=== PATIENT | male | born 1940 | race Caucasian/White ===

== ENCOUNTER 2017-03-10 07:34 | Emergency (ER) | payer MEDICARE ==
--- NOTE | 2017-03-10 08:04 | ED ---
Extremity Problem HPI - General Chief complaint: Extremity Problem,Nontraumatic Stated complaint: left shoulder numbness, lower back pain, heart Hx Time Seen by Provider: 03/10/17 07:43 Source: patient, RN notes reviewed Mode of arrival: wheelchair Limitations: no limitations - History of Present Illness Initial comments: This is a 76-year-old male with a history of heart disease who is on blood thinners who states she's had chronic left shoulder pain for last several months which wax and wane sometimes gets worse he points to the deltoid proximal aspect who states she last 2 days however he has had some back spasms in the left lower back. He denies any abdominal pain any fevers chills sweats nausea vomiting states the pain is severe at night and does keep him awake. He states right now the pain is very minimal he did take Tylenol and didn't seem to help. He has no history kidney stones no dysuria hematuria.Trouble bowel movements. He does have a history of low back problems also a history of arthritis and that he states. He states at this time he feels pretty good but because of severity of the pain he had he is seeking medical attention evaluation. He states he did have calf pain several days ago and was seen by Dr. romo a blood test was done and it was within normal limits. I did look up the blood test with a d-dimer that was within normal limits. MD Complaint: extremity pain, other - Related Data Home Medications Medication Instructions Recorded Confirmed B Complex-Vit C-Vit E-Zinc [Z-Bec] 1 tab PO DAILY 10/14/14 01/18/16 Nitroglycerin Sl Tabs [Nitrostat] 0.4 mg SL Q5M PRN 10/14/14 01/18/16 Quinapril HCl [Accupril] 20 mg PO BID 10/14/14 01/18/16 Ubidecarenone [Co Q-10] 100 mg PO DAILY 10/14/14 01/18/16 Aspirin 81 mg PO HS 02/04/15 01/18/16 Clopidogrel [Plavix] 75 mg PO DAILY 02/04/15 01/18/16 sulfaSALAzine [Azulfidine] 1,000 mg PO QID 02/04/15 01/18/16 Cholecalciferol [Vitamin D3] 1,000 unit PO DAILY 09/27/15 01/18/16 Multivit-Mins/Iron/Folic/Lycop 1 tab PO DAILY 01/18/16 01/18/16 [Centrum Men's Tablet] Rosuvastatin [Crestor] 20 mg PO HS 01/18/16 01/18/16 Previous Rx's Medication Instructions Recorded Metoprolol Tartrate [Lopressor] 50 mg PO BID #60 tab 10/15/14 Hydrocodone/Acetaminophen [Fisher 1 each PO Q6HR PRN #12 tab 03/10/17 5-325] predniSONE 20 mg PO BID #10 tab 03/10/17 Allergies Allergy/AdvReac Type Severity Reaction Status Date / Time influenza virus vaccine, Allergy Unknown Verified 03/10/17 07:39 specific [influenza virus vacc,specific] Penicillins AdvReac Unknown Verified 03/10/17 07:39 Childhood Review of Systems ROS Statement: Those systems with pertinent positive or pertinent negative responses have been documented in the HPI. ROS Other: All systems not noted in ROS Statement are negative. 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 Last Myocardial Infarction Date:: 2005 History of Any Multi-Drug Resistant Organisms: None Reported Past Surgical History: Adenoidectomy, Heart Catheterization With Stent, Tonsillectomy Additional Past Surgical History / Comment(s): 2005 Cardiac cath with stenting of LAD, anal fistula surgery, cardiac stents Past Anesthesia/Blood Transfusion Reactions: No Reported Reaction Additional Past Anesthesia/Blood Transfusion Reaction / Comment(s): Pt has never recieved blood. Date of Last Stent Placement:: 2005 Past Psychological History: Anxiety Smoking Status: Former smoker Past Alcohol Use History: Occasional Past Drug Use History: None Reported - Past Family History Father Family Medical History: Coronary Artery Disease (CAD) (Father at age of 77 from the myocardial infarction when he acquired at the age of 60 and he also developed prostate cancer), Myocardial Infarction ([place]) Additional Family Medical History / Comment(s): Father of [place] Mother Family Medical History: Dementia (Mother at age of 89 from Alzheimer dementia.) Additional Family Medical History / Comment(s): Mother of alzhiemer's Brother(s) Family Medical History: Cancer (Patient had 4 brothers one of his brother from lung cancer the other one from lead poisoning and the third one is alive.), Myocardial Infarction ([place]) Additional Family Medical History / Comment(s): Brother of [place] at age 55yrs but had used cocaine and other drugs. Sister(s) Family Medical History: Cancer (Patient has 3 sisters to alive and one from lung cancer) Son(s) Family Medical History: No Reported History (Patient has 5 sons no major medical problems as well as 5 stepsons.) General Exam - General Exam Comments Initial Comments: This is a well-developed well-nourished awake alert oriented times 3 male Limitations: no limitations General appearance: alert, in no apparent distress Head exam: Present: atraumatic, normocephalic, normal inspection Eye exam: Present: normal appearance, PERRL, EOMI. Absent: scleral icterus, conjunctival injection, periorbital swelling ENT exam: Present: normal exam, mucous membranes moist Neck exam: Present: normal inspection, tenderness (Mild left lateral neck tenderness palpation no spinous process tenderness). Absent: meningismus, lymphadenopathy Respiratory exam: Present: normal lung sounds bilaterally. Absent: respiratory distress, wheezes, rales, rhonchi, stridor Cardiovascular Exam: Present: regular rate, normal rhythm, normal heart sounds. Absent: systolic murmur, diastolic murmur, rubs, gallop, clicks GI/Abdominal exam: Present: soft, normal bowel sounds. Absent: distended, tenderness, guarding, rebound, rigid, bruit, pulsatile mass, hernia Rectal exam: Present: deferred Extremities exam: Present: normal inspection, full ROM, tenderness (Mild times palpation of the proximal deltoid and the left. No step-off or crepitation.), normal capillary refill. Absent: pedal edema, joint swelling, calf tenderness Back exam: Present: normal inspection, full ROM, tenderness. Absent: CVA tenderness (R) (Tenderness palpation of the left SI joint and left paraspinous muscle. No spinous process tenderness no step-off or crepitation. No gluteal tenderness at this time.), CVA tenderness (L) Neurological exam: Present: alert, oriented X3, CN II-XII intact Psychiatric exam: Present: normal affect, normal mood Skin exam: Present: warm, dry, intact, normal color. Absent: rash Course Vital Signs 03/10/17 03/10/17 03/10/17 07:36 08:31 08:51 Temperature 97.5 F L Pulse Rate 66 64 Respiratory 18 16 Rate Blood Pressure 222/102 187/69 O2 Sat by Pulse 97 98 Oximetry Medical Decision Making - Medical Decision Making I did discuss findings with the patient he will be discharged with appropriate medications the presentation is consistent with musculoskeletal pain. - Lab Data Result diagrams: 03/10/17 08:28 03/10/17 08:28 Lab Results 03/10/17 03/10/17 03/10/17 Range/Units 08:28 08:28 08:28 WBC 6.8 (3.8-10.6) k/uL RBC 4.59 (4.30-5.90) m/uL Hgb 14.1 (13.0-17.5) gm/dL Hct 42.1 (39.0-53.0) % MCV 91.7 (80.0-100.0) fL MCH 30.8 (25.0-35.0) pg MCHC 33.6 (31.0-37.0) g/dL RDW 13.3 (11.5-15.5) % Plt Count 253 (150-450) k/uL Neutrophils % 61 % Lymphocytes % 27 % Monocytes % 7 % Eosinophils % 3 % Basophils % 1 % Neutrophils # 4.1 (1.3-7.7) k/uL Lymphocytes # 1.8 (1.0-4.8) k/uL Monocytes # 0.5 (0-1.0) k/uL Eosinophils # 0.2 (0-0.7) k/uL Basophils # 0.1 (0-0.2) k/uL PT (9.0-12.0) sec INR (<1.2) Sodium 139 (137-145) mmol/L Potassium 4.6 (3.5-5.1) mmol/L Chloride 101 (98-107) mmol/L Carbon Dioxide 28 (22-30) mmol/L Anion Gap 10 mmol/L BUN 10 (9-20) mg/dL Creatinine 0.73 (0.66-1.25) mg/dL Est GFR (MDRD) Af Amer >60 (>60 ml/min/1.73 sqM) Est GFR (MDRD) Non-Af >60 (>60 ml/min/1.73 sqM) Glucose 151 H (74-99) mg/dL Calcium 9.4 (8.4-10.2) mg/dL Magnesium 2.1 (1.6-2.3) mg/dL Total Bilirubin 0.6 (0.2-1.3) mg/dL AST 25 (17-59) U/L ALT 32 (21-72) U/L Alkaline Phosphatase 82 (38-126) U/L Total Creatine Kinase 118 (55-170) U/L CK-MB (CK-2) 1.8 (0.0-2.4) ng/mL CK-MB (CK-2) Rel Index 1.5 Total Protein 7.6 (6.3-8.2) g/dL Albumin 4.7 (3.5-5.0) g/dL Amylase 47 (30-110) U/L Lipase 75 (23-300) U/L Urine Color Urine Appearance (Clear) Urine pH (5.0-8.0) Ur Specific [place] (1.001-1.035) Urine Protein (Negative) Urine Glucose (UA) (Negative) Urine Ketones (Negative) Urine Blood (Negative) Urine Nitrite (Negative) Urine Bilirubin (Negative) Urine Urobilinogen (<2.0) mg/dL Ur Leukocyte Esterase (Negative) 03/10/17 03/10/17 Range/Units 08:28 08:28 WBC (3.8-10.6) k/uL RBC (4.30-5.90) m/uL Hgb (13.0-17.5) gm/dL Hct (39.0-53.0) % MCV (80.0-100.0) fL MCH (25.0-35.0) pg MCHC (31.0-37.0) g/dL RDW (11.5-15.5) % Plt Count (150-450) k/uL Neutrophils % % Lymphocytes % % Monocytes % % Eosinophils % % Basophils % % Neutrophils # (1.3-7.7) k/uL Lymphocytes # (1.0-4.8) k/uL Monocytes # (0-1.0) k/uL Eosinophils # (0-0.7) k/uL Basophils # (0-0.2) k/uL PT 10.9 (9.0-12.0) sec INR 1.1 (<1.2) Sodium (137-145) mmol/L Potassium (3.5-5.1) mmol/L Chloride (98-107) mmol/L Carbon Dioxide (22-30) mmol/L Anion Gap mmol/L BUN (9-20) mg/dL Creatinine (0.66-1.25) mg/dL Est GFR (MDRD) Af Amer (>60 ml/min/1.73 sqM) Est GFR (MDRD) Non-Af (>60 ml/min/1.73 sqM) Glucose (74-99) mg/dL Calcium (8.4-10.2) mg/dL Magnesium (1.6-2.3) mg/dL Total Bilirubin (0.2-1.3) mg/dL AST (17-59) U/L ALT (21-72) U/L Alkaline Phosphatase (38-126) U/L Total Creatine Kinase (55-170) U/L CK-MB (CK-2) (0.0-2.4) ng/mL CK-MB (CK-2) Rel Index Total Protein (6.3-8.2) g/dL Albumin (3.5-5.0) g/dL Amylase (30-110) U/L Lipase (23-300) U/L Urine Color Light Yellow Urine Appearance Clear (Clear) Urine pH 7.0 (5.0-8.0) Ur Specific [place] 1.003 (1.001-1.035) Urine Protein Negative (Negative) Urine Glucose (UA) Negative (Negative) Urine Ketones Negative (Negative) Urine Blood Negative (Negative) Urine Nitrite Negative (Negative) Urine Bilirubin Negative (Negative) Urine Urobilinogen <2.0 (<2.0) mg/dL Ur Leukocyte Esterase Negative (Negative) - EKG Data -: EKG Interpreted by Me EKG shows normal: sinus rhythm (Sinus rhythm rate is 61. We'll 196 QRS 148 QT since QTC of 432/434 left exodeviation right bundle-branch block minimal voltage criteria for LVH.) - Radiology Data Radiology results: report reviewed (I did review the imaging and reports are is evidence of degenerative changes in the lumbar spine x-rays are unremarkable for acute findings.), image reviewed Disposition Clinical Impression: Cervical radiculopathy, Lumbar back pain Disposition: HOME SELF-CARE Condition: Good Instructions: Cervical Radiculopathy (ED), Lower Back Exercises (ED), Low Back Strain (ED) Prescriptions: Hydrocodone/Acetaminophen [Fisher 5-325] 1 each PO Q6HR PRN #12 tab PRN Reason: Pain predniSONE 20 mg PO BID #10 tab Referrals: Jeff Medina DO [Primary Care Provider] - 1-2 days
[2017-03-10 08:42] LABS: Basophils # (A) 0.1 k/uL (0-0.2); Basophils % (A) 1 %; CH 29.9; CHCM 32.8; Eosinophils # (A) 0.2 k/uL (0-0.7); Eosinophils % (A) 3 %; HCT 42.1 % (39.0-53.0); HDW 2.45; HGB 14.1 gm/dL (13.0-17.5); Luc # (Auto) 0.16; Luc % (Auto) 2; Lymphocytes # (A) 1.8 k/uL (1.0-4.8); Lymphocytes % (A) 27 %; MCH 30.8 pg (25.0-35.0); MCHC 33.6 g/dL (31.0-37.0); MCV 91.7 fL (80.0-100.0); Mean Platelet Volume 7.2; Monocytes # (A) 0.5 k/uL (0-1.0); Monocytes % (A) 7 %; Neutrophils # (A) 4.1 k/uL (1.3-7.7); Neutrophils % (A) 61 %; RBC 4.59 m/uL (4.30-5.90); RDW 13.3 % (11.5-15.5); WBC 6.8 k/uL (3.8-10.6); WBC (Perox) 6.74
[2017-03-10 08:46] LABS: Appearance,Urine Clear (Clear); Bilirubin,Urine Negative (Negative); Glucose,Urine (UA) Negative (Negative); Ketones,Urine Negative (Negative); Leukocyte Esterase,Urine Negative (Negative); Nitrite,Urine Negative (Negative); Protein,Urine Negative (Negative); Specific Gravity,Urine 1.003 (1.001-1.035); UA Billing (MACRO vs. MICRO) CHEM; Urobilinogen,Urine <2.0 mg/dL (<2.0)
[2017-03-10 08:48] LABS: INR 1.1 (<1.2); Prothrombin Time 10.9 sec (9.0-12.0)
[2017-03-10 08:51] LABS: ALT 32 U/L (21-72); AST 25 U/L (17-59); Alkaline Phosphatase 82 U/L (38-126); Amylase 47 U/L (30-110); Anion Gap 10 mmol/L; Blood Urea Nitrogen 10 mg/dL (9-20); Calcium 9.4 mg/dL (8.4-10.2); Carbon Dioxide 28 mmol/L (22-30); Chloride 101 mmol/L (98-107); Glucose 151 mg/dL (74-99); Magnesium 2.1 mg/dL (1.6-2.3); Non-African American GFR(MDRD) >60 (>60 ml/min/1.73 sqM); Potassium 4.6 mmol/L (3.5-5.1); Sodium 139 mmol/L (137-145); Total Bilirubin 0.6 mg/dL (0.2-1.3); Total Protein 7.6 g/dL (6.3-8.2)
[2017-03-10 08:52] VITALS: PULSE 64
--- NOTE | 2017-03-10 09:02 | XR ---
EXAMINATION TYPE: XR lumbosacral spine min 4V , 5 VIEWS DATE OF EXAM ORDERED: 03/10/2017 HISTORY: Pain. COMPARISON: None. FINDINGS: Vertebral body height and alignment are maintained. Disc spaces are reasonably well-mainta ined. There is diffuse hypertrophic spondylosis and spondylosis deformans throughout the lumbar spine . There is mild to moderate facet arthropathy, greater on the right than the left. The pedicles are i ntact. IMPRESSION: 1. NO ACUTE OSSEOUS LESION. 2. DEGENERATIVE CHANGE.
--- NOTE | 2017-03-10 09:03 | XR ---
EXAMINATION TYPE: XR abdomen 1V , 2 VIEWS DATE OF EXAM ORDERED: 03/10/2017 HISTORY: Pain. COMPARISON: None. FINDINGS: The lung bases are clear. Within the abdomen, the abdominal gas pattern is normal. There is no evidence of obstruction or free air. There are phleboliths within the pelvis. There is degenerative change within the hips and spine. IMPRESSION: NO ACUTE INTRA-ABDOMINAL ABNORMALITY.
--- NOTE | 2017-03-10 09:05 | XR ---
EXAMINATION TYPE: XR chest 2V DATE OF EXAM: 03/10/2017 HISTORY: cough. REFERENCE: Previous study dated 01/18/2016. FINDINGS: Lung volumes are prominent. The lungs are clear. Pleural spaces are clear. Heart size is up per limits of normal. IMPRESSION: 1. COPD. 2. BORDERLINE CARDIOMEGALY.
[2017-03-10 09:12] LABS: Creatine Kinase MB 1.8 ng/mL (0.0-2.4)
[2017-03-10 11:48] VITALS: BP 209/93; RESP 15; TEMP 98.5
== END 2017-03-10 11:51 | disposition home or self-care (01) ==
LOC: EC 07:34
DX: M54.12 Radiculopathy, cervical region (principal); M54.5 Low back pain; M25.512 Pain in left shoulder; G89.29 Other chronic pain; I25.10 Atherosclerotic heart disease of native coronary artery without angina pectoris; E78.5 Hyperlipidemia, unspecified; I10 Essential (primary) hypertension; I25.2 Old myocardial infarction; F41.9 Anxiety disorder, unspecified; Z87.891 Personal history of nicotine dependence; Z79.82 Long term (current) use of aspirin; Z79.01 Long term (current) use of anticoagulants; Z79.899 Other long term (current) drug therapy; Z88.0 Allergy status to penicillin; Z88.7 Allergy status to serum and vaccine
CPT/HCPCS: 36415; 71020; 72110; 74000; 80053; 81003; 82150; 82550; 82553; 83690; 83735; 85025; 85610; 93005; 99284

== ENCOUNTER 2017-08-26 11:46 | Observation (INO) | payer MEDICARE ==
[2017-08-26 12:07] LABS: Glucose,Whole Blood 157 mg/dL (75-99)
--- NOTE | 2017-08-26 12:08 | ED ---
General Adult HPI - General Chief complaint: Weakness Stated complaint: facial droop, headache Time Seen by Provider: 08/26/17 11:52 Source: patient, RN notes reviewed Mode of arrival: ambulatory Limitations: no limitations - History of Present Illness Initial comments: 77-year-old male presents for evaluation of left-sided facial weakness and numbness. Patient's symptoms have been present for approximately the past 36 hours. He noticed today that he had some drooling from the left side of his mouth that has worsened over the past 24 hours. Patient's also noted that his left eye was drooping more than usual. 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 Patient denies any numbness or tingling in extremities, no weakness in upper or lower extremity. He does have a slight occipital headache which is been present for approximately one week. No chest pain or shortness of breath. No fever or chills. No history of TIA or CVA. Patient has history of CAD, and hypertension. - Related Data Home Medications Medication Instructions Recorded Confirmed B Complex-Vit C-Vit E-Zinc [Z-Bec] 1 tab PO DAILY 10/14/14 08/26/17 Nitroglycerin Sl Tabs [Nitrostat] 0.4 mg SL Q5M PRN 10/14/14 08/26/17 Quinapril HCl [Accupril] 20 mg PO BID 10/14/14 08/26/17 Aspirin 81 mg PO HS 02/04/15 08/26/17 Clopidogrel [Plavix] 75 mg PO DAILY 02/04/15 08/26/17 sulfaSALAzine [Azulfidine] 1,000 mg PO QID 02/04/15 08/26/17 Cholecalciferol [Vitamin D3] 1,000 unit PO DAILY 09/27/15 08/26/17 Multivit-Mins/Iron/Folic/Lycop 1 tab PO DAILY 01/18/16 08/26/17 [Centrum Men's Tablet] Rosuvastatin [Crestor] 20 mg PO HS 01/18/16 08/26/17 Previous Rx's Medication Instructions Recorded Metoprolol Tartrate [Lopressor] 50 mg PO BID #60 tab 10/15/14 Allergies Allergy/AdvReac Type Severity Reaction Status Date / Time influenza virus vaccine, Allergy Unknown Verified 08/26/17 12:38 specific [influenza virus vacc,specific] Penicillins AdvReac Unknown Verified 08/26/17 12:38 Childhood Review of Systems ROS Statement: Those systems with pertinent positive or pertinent negative responses have been documented in the HPI. ROS Other: All systems not noted in ROS Statement are negative. 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 Last Myocardial Infarction Date:: 2005 History of Any Multi-Drug Resistant Organisms: None Reported Past Surgical History: Adenoidectomy, Heart Catheterization With Stent, Tonsillectomy Additional Past Surgical History / Comment(s): 2005 Cardiac cath with stenting of LAD, anal fistula surgery, cardiac stents Past Anesthesia/Blood Transfusion Reactions: No Reported Reaction Additional Past Anesthesia/Blood Transfusion Reaction / Comment(s): Pt has never recieved blood. Date of Last Stent Placement:: 2005 Past Psychological History: Anxiety Smoking Status: Former smoker Past Alcohol Use History: Occasional Past Drug Use History: None Reported - Past Family History Father Family Medical History: Coronary Artery Disease (CAD) (Father at age of 77 from the myocardial infarction when he acquired at the age of 60 and he also developed prostate cancer), Myocardial Infarction ([place]) Additional Family Medical History / Comment(s): Father of [place] Mother Family Medical History: Dementia (Mother at age of 89 from Alzheimer dementia.) Additional Family Medical History / Comment(s): Mother of alzhiemer's Brother(s) Family Medical History: Cancer (Patient had 4 brothers one of his brother from lung cancer the other one from lead poisoning and the third one is alive.), Myocardial Infarction ([place]) Additional Family Medical History / Comment(s): Brother of [place] at age 55yrs but had used cocaine and other drugs. Sister(s) Family Medical History: Cancer (Patient has 3 sisters to alive and one from lung cancer) Son(s) Family Medical History: No Reported History (Patient has 5 sons no major medical problems as well as 5 stepsons.) General Exam Limitations: no limitations General appearance: alert, in no apparent distress Head exam: Present: atraumatic, normocephalic Eye exam: Present: normal appearance, PERRL, EOMI ENT exam: Present: normal exam Neck exam: Present: normal inspection. Absent: tenderness, meningismus Respiratory exam: Present: normal lung sounds bilaterally, respiratory distress Cardiovascular Exam: Present: regular rate, normal rhythm GI/Abdominal exam: Present: soft. Absent: distended, tenderness Extremities exam: Present: normal inspection, normal capillary refill. Absent: pedal edema Neurological exam: Present: alert, oriented X3, motor sensory deficit (Patient has left facial droop, left ptosis, no upper facial weakness. Strength 5 out of 5 in all 4 extremities., NIH is 1) Psychiatric exam: Present: normal affect, normal mood Skin exam: Present: warm, dry, intact. Absent: cyanosis, diaphoretic Course Vital Signs 08/26/17 08/26/17 11:50 12:35 Temperature 98.3 F Pulse Rate 67 66 Respiratory 20 18 Rate Blood Pressure 238/101 202/87 O2 Sat by Pulse 98 95 Oximetry EKG Findings - EKG Comments: EKG Findings:: EKG shows normal sinus rhythm, right bundle branch, left anterior fascicular block, no ST segment elevation ventricular rate 68, OR interval 196, QRS duration 148, QTC 461, patient has history of previous right bundle. Medical Decision Making - Medical Decision Making 77-year-old male presenting with 36 hour history of left facial droop. Patient patient does have history of Ontiveros's palsy, however he has no upper facial weakness. External ear exam within normal limits, auditory canal and tympanic membrane within normal limits. Head CT is obtained, this is negative for acute intracranial pathology, chest x-ray negative. Laboratory studies including CBC and CMP are unremarkable. Patient has had symptoms for 36 hours with no progression to upper facial weakness, there is concern for CVA. He will be admitted for further evaluation of possible CVA especially in the setting of elevated blood pressure. Diagnosis: Left facial droop, concern for CVA - Lab Data Result diagrams: 08/26/17 12:17 08/26/17 12:17 Lab Results 08/26/17 08/26/17 08/26/17 Range/Units 11:59 12:17 12:17 WBC 6.8 (3.8-10.6) k/uL RBC 4.37 (4.30-5.90) m/uL Hgb 13.1 (13.0-17.5) gm/dL Hct 39.7 (39.0-53.0) % MCV 90.9 (80.0-100.0) fL MCH 30.0 (25.0-35.0) pg MCHC 33.0 (31.0-37.0) g/dL RDW 13.4 (11.5-15.5) % Plt Count 220 (150-450) k/uL Neutrophils % 60 % Lymphocytes % 26 % Monocytes % 6 % Eosinophils % 4 % Basophils % 1 % Neutrophils # 4.1 (1.3-7.7) k/uL Lymphocytes # 1.8 (1.0-4.8) k/uL Monocytes # 0.4 (0-1.0) k/uL Eosinophils # 0.3 (0-0.7) k/uL Basophils # 0.1 (0-0.2) k/uL PT (9.0-12.0) sec INR (<1.2) APTT (22.0-30.0) sec Sodium (137-145) mmol/L Potassium (3.5-5.1) mmol/L Chloride (98-107) mmol/L Carbon Dioxide (22-30) mmol/L Anion Gap mmol/L BUN (9-20) mg/dL Creatinine (0.66-1.25) mg/dL Est GFR (MDRD) Af Amer (>60 ml/min/1.73 sqM) Est GFR (MDRD) Non-Af (>60 ml/min/1.73 sqM) Glucose (74-99) mg/dL POC Glucose (mg/dL) 157 H (75-99) mg/dL POC Glu [employer] ID Calcium (8.4-10.2) mg/dL Total Bilirubin (0.2-1.3) mg/dL AST (17-59) U/L ALT (21-72) U/L Alkaline Phosphatase (38-126) U/L Total Creatine Kinase 95 (55-170) U/L CK-MB (CK-2) 1.1 (0.0-2.4) ng/mL CK-MB (CK-2) Rel Index 1.2 Troponin I <0.012 (0.000-0.034) ng/mL Total Protein (6.3-8.2) g/dL Albumin (3.5-5.0) g/dL 08/26/17 08/26/17 Range/Units 12:17 12:17 WBC (3.8-10.6) k/uL RBC (4.30-5.90) m/uL Hgb (13.0-17.5) gm/dL Hct (39.0-53.0) % MCV (80.0-100.0) fL MCH (25.0-35.0) pg MCHC (31.0-37.0) g/dL RDW (11.5-15.5) % Plt Count (150-450) k/uL Neutrophils % % Lymphocytes % % Monocytes % % Eosinophils % % Basophils % % Neutrophils # (1.3-7.7) k/uL Lymphocytes # (1.0-4.8) k/uL Monocytes # (0-1.0) k/uL Eosinophils # (0-0.7) k/uL Basophils # (0-0.2) k/uL PT 9.8 (9.0-12.0) sec INR 1.0 (<1.2) APTT 23.1 (22.0-30.0) sec Sodium 141 (137-145) mmol/L Potassium 4.3 (3.5-5.1) mmol/L Chloride 103 (98-107) mmol/L Carbon Dioxide 28 (22-30) mmol/L Anion Gap 10 mmol/L BUN 16 (9-20) mg/dL Creatinine 0.70 (0.66-1.25) mg/dL Est GFR (MDRD) Af Amer >60 (>60 ml/min/1.73 sqM) Est GFR (MDRD) Non-Af >60 (>60 ml/min/1.73 sqM) Glucose 165 H (74-99) mg/dL POC Glucose (mg/dL) (75-99) mg/dL POC Glu [employer] ID Calcium 9.7 (8.4-10.2) mg/dL Total Bilirubin 0.6 (0.2-1.3) mg/dL AST 25 (17-59) U/L ALT 31 (21-72) U/L Alkaline Phosphatase 89 (38-126) U/L Total Creatine Kinase (55-170) U/L CK-MB (CK-2) (0.0-2.4) ng/mL CK-MB (CK-2) Rel Index Troponin I (0.000-0.034) ng/mL Total Protein 7.2 (6.3-8.2) g/dL Albumin 4.6 (3.5-5.0) g/dL Critical Care Time Critical Care Time: Yes Total Critical Care Time: 35 Disposition Clinical Impression: CVA (cerebral vascular accident) Disposition: ADMITTED IP TO THIS [facility] Condition: Stable Referrals: Jeff Medina DO [Primary Care Provider] - 1-2 days Decision to Admit Reason: Admit from EC Decision Date: 08/26/17 Decision Time: 13:33
[2017-08-26 12:26] LABS: Basophils # (A) 0.1 k/uL (0-0.2); Basophils % (A) 1 %; Eosinophils # (A) 0.3 k/uL (0-0.7); Eosinophils % (A) 4 %; HCT 39.7 % (39.0-53.0); HGB 13.1 gm/dL (13.0-17.5); Lymphocytes # (A) 1.8 k/uL (1.0-4.8); Lymphocytes % (A) 26 %; MCV 90.9 fL (80.0-100.0); Mean Platelet Volume 7.5; Monocytes # (A) 0.4 k/uL (0-1.0); Monocytes % (A) 6 %; Neutrophils # (A) 4.1 k/uL (1.3-7.7); Neutrophils % (A) 60 %; Platelet Count 220 k/uL (150-450); RBC 4.37 m/uL (4.30-5.90); RDW 13.4 % (11.5-15.5); WBC 6.8 k/uL (3.8-10.6)
[2017-08-26 12:34] LABS: Partial Thromboplastin Time 23.1 sec (22.0-30.0); Prothrombin Time 9.8 sec (9.0-12.0)
--- NOTE | 2017-08-26 12:37 | CT ---
EXAMINATION TYPE: CT brain wo con DATE OF EXAM: 08/26/2017 COMPARISON: 09/27/2015 HISTORY: Left sided facial droop. history of bells palsy CT DLP: 1260 mGycm Automated exposure control for dose reduction was used. FINDINGS: Ventricles of normal size. There is no mass effect nor midline shift. There is no sign of intracrania l hemorrhage. There is a mucous retention cyst in the left maxillary sinus. IMPRESSION: NEGATIVE CT SCAN OF THE BRAIN. NO CHANGE.
--- NOTE | 2017-08-26 12:40 | XR ---
EXAMINATION TYPE: XR chest 2V DATE OF EXAM: 08/26/2017 COMPARISON: 03/10/2017 HISTORY: Left-sided facial droop. Altered mental status. TECHNIQUE: Frontal and lateral views of the chest are obtained. FINDINGS: There is no heart failure nor confluent pneumonic infiltrate. Heart size is normal. Costop hrenic angles are clear. There are chest leads. Bony thorax is intact. IMPRESSION: No active cardiopulmonary disease. No change.
[2017-08-26 12:44] LABS: ALT 31 U/L (21-72); AST 25 U/L (17-59); Albumin 4.6 g/dL (3.5-5.0); Alkaline Phosphatase 89 U/L (38-126); Anion Gap 10 mmol/L; Blood Urea Nitrogen 16 mg/dL (9-20); Calcium 9.7 mg/dL (8.4-10.2); Carbon Dioxide 28 mmol/L (22-30); Chloride 103 mmol/L (98-107); Glucose 165 mg/dL (74-99); Potassium 4.3 mmol/L (3.5-5.1); Sodium 141 mmol/L (137-145); Total Bilirubin 0.6 mg/dL (0.2-1.3); Total Protein 7.2 g/dL (6.3-8.2)
[2017-08-26 12:54] LABS: Creatine Kinase 95 U/L (55-170)
[2017-08-26] MEDS ORDERED: LISINOPRIL 20 MG TAB PO STA (13:03)
[2017-08-26] MEDS ORDERED: METOPROLOL TARTRATE 50 MG TAB PO STA (13:03)
[2017-08-26 13:06] LABS: Creatine Kinase MB 1.1 ng/mL (0.0-2.4); Troponin I <0.012 ng/mL (0.000-0.034)
[2017-08-26] MEDS ORDERED: LABETALOL 5 MG/ML VIAL MDV IVP STA (13:25)
[2017-08-26] MEDS ORDERED: ASPIRIN 325 MG TAB PO STA (13:25)
--- NOTE | 2017-08-26 15:25 | US ---
EXAMINATION TYPE: US carotid duplex BILAT DATE OF EXAM: 08/26/2017 COMPARISON: NONE CLINICAL HISTORY: Stenosis. Left facial droop. Headache EXAM MEASUREMENTS: RIGHT: Peak Systolic Velocity (PSV) cm/sec ----- Right CCA: 95.8 ----- Right ICA: 109.7 ----- Right ECA: 124.2 ICA/CCA ratio: 1.1 RIGHT: End Diastole cm/sec ----- Right CCA: 15.9 ----- Right ICA: 25.7 ----- Right ECA: 11.1 LEFT: Peak Systolic Velocity (PSV) cm/sec ----- Left CCA: 108.1 ----- Left ICA: 108.1 ----- Left ECA: 143.7 ICA/CCA ratio: 1.0 LEFT: End Diastole cm/sec ----- Left CCA: 17.6 ----- Left ICA: 28.9 ----- Left ECA: 11.6 VERTEBRALS (direction of flow): Right Vertebral: Antegrade Left Vertebral: Antegrade Rhythm: Normal Mild plaque bilateral bifurcations. Slightly increased velocities left ECA. IMPRESSION: There is antegrade flow in the vertebral arteries. The images and measurements suggest 3 0% stenosis in both internal carotid arteries. Criteria for Assigning % of Stenosis / Diameter reduction (Estimation based on the indirect measurements of the internal carotid artery velocities (ICA PSV). 1. Normal (no stenosis)=ICA PSV < 125 cm/s: ratio < 2.0: ICA EDV<40 cm/s. 2. Less than 50% stenosis=ICA PSV < 125 cm/s: ratio < 2.0: ICA EDV<40 cm/s. 3. 50 to 69% stenosis=ICA PSV of 125 to 230 cm/s: ration 2.0 ? 4.0: ICA EDV 40-100 cm/s. 4. Greater than 70% stenosis to near occlusion= ICA PSV > 230 cm/s: ratio > 4.0: ICA EDV > 100 cm/s. 5. Near occlusion= ICA PSV velocities may be low or undetectable: variable ratio and ICA EDV. 6. Total occlusion=unable to detect flow.
--- NOTE | 2017-08-26 16:14 | P.HPIM ---
History of Present Illness H&P Date: 08/26/17 Chief Complaint: facial paralysis This is a 74-year-old male one of Dr. Medina with a previous medical history significant for coronary artery disease status post per continue his current intervention and stent placement of the LAD back in October 2005 followed by non-ST elevated myocardial infarction status post angioplasty and drug-eluting stent of the mid LAD in September 2014 with EF of 3540 percent at that time, hypertension and hypertensive cardiovascular disease, hyperlipidemia , benign prostatic hypertrophy, Crohn disease, complicted by fistula resection in the buttock area currently on the sulfasalazine last seen in 2015 for nonspecific chest pain comes in with facial numbness associated with ptosis and drooling of saliva from the right side. Patient states he has history of Ontiveros' s Palsy which was diagnosed in 1998 and does have ptosis and some drooping of the right side. He woke up this morning and was unable to suspect or from his mouth which is unusual for him. His noticed that his ptosis is worse. Patient had some headache and neck pain which is chronic. He does endorses tinnitus worse on the left for past few months. He denies any weakness, sensory deficit, discoordination, loss of vision, dysarthria or loss of speech CT head done in the ER was negative for any acute abnormality. Patient denies any recent travel or rash. Carotid Doppler were negative for any occlusion. EKG was normal sinus rhythm. Patient was admitted for possible stroke. Neurology consulted as patient does not have any involvement of the forehead. Review of Systems Constitutional: Denies chills, Denies fever, Denies lethargy, Denies malaise, Denies poor appetite, Denies weakness, Denies weight loss Eyes: denies decreased vision, denies diplopia, denies discharge, denies pain Ears: deny: decreased hearing Ears, nose, mouth and throat: Denies dental pain, Denies headache, Denies nasal discharge, Denies nose pain positive for drooping and drooling of the left side of the face Cardiovascular: Denies chest pain, Denies decreased exercise tolerance, Denies edema, Denies high blood pressure, Denies irregular heart beat, Denies palpitations, Denies paroxysmal nocturnal dyspnea, Denies rapid heart beat, Denies shortness of breath Respiratory: Denies congestion, Denies cough, Denies cough with sputum, Denies dyspnea, Denies home oxygen, Denies wheezing Gastrointestinal: Denies abdominal pain, Denies change in bowel habits, Denies coffee ground emesis, Denies early satiety, Denies excessive gas, Denies heartburn, Denies hematemesis, Denies hematochezia, Denies loss of appetite, Denies nausea, Denies vomiting Genitourinary: Denies dysuria, Denies flank pain, Denies kidney stones, Denies menorrhagia, Denies urgency, Denies urinary frequency Musculoskeletal: Denies gait dysfunction, Denies limitation of motion, Denies morning stiffness, Denies muscle cramps Integumentary: Denies rash, Denies wounds, Denies brittle nails, Denies change in hair/nails, Denies darkening of skin Neurological: Denies balance difficulties, Denies change in speech, Denies double vision, Denies gait dysfunction, Denies loss of vision, Denies motor disturbance, Denies numbness, Denies paralysis, Denies paresthesias, Denies seizures Psychiatric: Denies anxiety, Denies depression Endocrine: Denies excessive sweating, Denies excessive thirst, Denies high blood sugars, Denies palpitations Hematologic/Lymphatic: Denies easy bruising, Denies lymphadenopathy Past Medical History Past Medical History: Coronary Artery Disease (CAD), Chest Pain / Angina, Hyperlipidemia, Hypertension, Myocardial Infarction ([place]) Additional Past Medical History / Comment(s): [place] 2005, ontiveros's palsy which caused L eyelid droop and slight droop to L side of mouth, chron's dx. Last Myocardial Infarction Date:: 2005 History of Any Multi-Drug Resistant Organisms: None Reported Past Surgical History: Adenoidectomy, Heart Catheterization With Stent, Tonsillectomy Additional Past Surgical History / Comment(s): 2005 Cardiac cath with stenting of LAD, anal fistula surgery, cardiac stents Past Anesthesia/Blood Transfusion Reactions: No Reported Reaction Additional Past Anesthesia/Blood Transfusion Reaction / Comment(s): Pt has never recieved blood. Date of Last Stent Placement:: 2005 Past Psychological History: Anxiety Smoking Status: Former smoker Past Alcohol Use History: Occasional Past Drug Use History: None Reported - Past Family History Father Family Medical History: Coronary Artery Disease (CAD) (Father at age of 77 from the myocardial infarction when he acquired at the age of 60 and he also developed prostate cancer), Myocardial Infarction ([place]) Additional Family Medical History / Comment(s): Father of [place] Mother Family Medical History: Dementia (Mother at age of 89 from Alzheimer dementia.) Additional Family Medical History / Comment(s): Mother of alzhiemer's Brother(s) Family Medical History: Cancer (Patient had 4 brothers one of his brother from lung cancer the other one from lead poisoning and the third one is alive.), Myocardial Infarction ([place]) Additional Family Medical History / Comment(s): Brother of [place] at age 55yrs but had used cocaine and other drugs. Sister(s) Family Medical History: Cancer (Patient has 3 sisters to alive and one from lung cancer) Son(s) Family Medical History: No Reported History (Patient has 5 sons no major medical problems as well as 5 stepsons.) Medications and Allergies Home Medications Medication Instructions Recorded Confirmed Type B Complex-Vit C-Vit E-Zinc [Z-Bec] 1 tab PO DAILY 10/14/14 08/26/17 History Nitroglycerin Sl Tabs [Nitrostat] 0.4 mg SL Q5M PRN 10/14/14 08/26/17 History Quinapril HCl [Accupril] 20 mg PO BID 10/14/14 08/26/17 History Metoprolol Tartrate [Lopressor] 50 mg PO BID #60 tab 10/15/14 08/26/17 Rx Aspirin 81 mg PO HS 02/04/15 08/26/17 History Clopidogrel [Plavix] 75 mg PO DAILY 02/04/15 08/26/17 History sulfaSALAzine [Azulfidine] 1,000 mg PO QID 02/04/15 08/26/17 History Cholecalciferol [Vitamin D3] 1,000 unit PO DAILY 09/27/15 08/26/17 History Multivit-Mins/Iron/Folic/Lycop 1 tab PO DAILY 01/18/16 08/26/17 History [Centrum Men's Tablet] Rosuvastatin [Crestor] 20 mg PO HS 01/18/16 08/26/17 History Artificial Tears-Hypromellose 2 drops RIGHT EYE QID bottle 08/27/17 Rx [Artificial Tear Drops] Famotidine [Pepcid] 20 mg PO DAILY tab 08/27/17 Rx predniSONE 10 mg PO DAILY #10 tab 08/27/17 Rx valACYclovir HCL [Valtrex] 1,000 mg PO BID #20 tablet 08/27/17 Rx Allergies Allergy/AdvReac Type Severity Reaction Status Date / Time influenza virus vaccine, Allergy Unknown Verified 08/26/17 12:38 specific [influenza virus vacc,specific] Penicillins AdvReac Unknown Verified 08/26/17 12:38 Childhood Physical Exam Vitals: Vital Signs Temp Pulse Pulse Resp BP BP Pulse Ox 08/26/17 13:25 69 18 190/88 96 08/26/17 12:35 66 18 202/87 95 08/26/17 11:50 98.3 F 67 20 238/101 98 Intake and Output 08/26/17 08/26/17 08/26/17 06:59 14:59 22:59 Other: Weight 94.347 kg Patient Weight 08/27/17 06:59 Weight 94.347 kg - Constitutional General appearance: cooperative, no acute distress, obese - EENT Eyes: anicteric sclerae, PERRLA, normal appearance no nystagmus no peripheral vision defect ENT: hearing grossly normal, tympanic membran clear e with no vesicles no pain or tenderness on examination - Neck Neck: no lymphadenopathy, normal ROM, no other, no rigidity, no stridor, no thyromegaly - Respiratory Respiratory: bilateral: CTA, negative: diminished, dullness, rales, rhonchi - Cardiovascular Rhythm: regular Heart sounds: normal: S1, S2 Abnormal Heart Sounds: no systolic murmur, no diastolic murmur, no rub, no S3 Gallop, no S4 Gallop, no click, no other - Gastrointestinal General gastrointestinal: normal bowel sounds, soft - Integumentary Integumentary: no rash - Neurologic Neurologic: CNII-XII except for bilateral facial nerve palsy seen on the left causing ptosis and drooping of the right side of the face. Able to elevate eye brows bilaterally, reduced on th eright. unable to close eye on the right no sensitivity motor or coordination deficit . Babinski negative - Musculoskeletal Musculoskeletal: gait normal, strength equal bilaterally - Psychiatric Psychiatric: A&O x's 3, appropriate affect Results CBC & Chem 7: 08/27/17 05:48 08/27/17 05:48 Labs: Abnormal Lab Results - Last 24 Hours (Table) 08/26/17 08/26/17 Range/Units 11:59 12:17 Glucose 165 H (74-99) mg/dL POC Glucose (mg/dL) 157 H (75-99) mg/dL Thrombosis Risk Factor Assmnt - DVT/VTE Prophylaxis DVT/VTE Prophylaxis: Pharmacologic Prophylaxis ordered Assessment and Plan Plan: 1. 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 Ptosis gets worse at the end of the day ? myasthenia. Carotid Dopplers negative for any acute occlusion. CT head negative. Continue aspirin and statin. Neurology consult placed. Prednisone initiated at 10 mg as patient has side effects to 20 mg dosing in the form of diplopia. No vesicles seen on examination of the Ear. echo ordered. continue telemetry. 2. Hypertension and hypertensive cardiovascular disease we will continue the patient on metoprolol 50 mg orally twice every day, quinapril 20 mg orally twice every day. BP elevated on admission, is improving now 3. Hyperlipidemia we will continue the patient on Lipitor 40 mg orally once every day. 4. Benign prostatic hypertrophy after for urinary retention. 5. Crohn disease does not appear to be in acute exacerbation his colonoscopy is up-to-date, we'll continue Azulfidine 1000 g orally 4 times every day. 6. History of myocardial infarction and coronary artery disease with PCI of the LAD we will continue the patient on aspirin 325 mg orally once every day, Plavix 75 mg orally once every day, metoprolol 50 mg orally twice every day, Lipitor 40 mg orally once every day, and quinapril 20 mg orally twice every day. 7. Full code.
[2017-08-26] MEDS ORDERED: NITROGLYCERIN SL TABS 0.4 MG TAB SUBLINGUAL PRN (16:15)
[2017-08-26] MEDS ORDERED: ACETAMINOPHEN TAB 325 MG TAB PO PRN (16:16)
[2017-08-26] MEDS: predniSONE 10 MG TAB PO SCH (17:46)
[2017-08-26] MEDS: sulfaSALAzine 500 MG TAB PO SCH ×2 (17:46→22:58)
[2017-08-26] MEDS: LISINOPRIL 20 MG TAB PO SCH (20:19)
[2017-08-26] MEDS: HEPARIN SODIUM,PORCINE 5,000 UNIT/ML 1 ML VIAL SQ SCH ×2 (20:19→21:07)
[2017-08-26] MEDS: METOPROLOL TARTRATE 50 MG TAB PO SCH (20:19)
--- NOTE | 2017-08-26 20:20 | P.CNNES ---
History of Present Illness Consult date: 08/26/17 Reason for Consult: Patient with left facial weakness and possible stroke. History of Present Illness: This patient is a 77-year-old right-handed white male was brought into the emergency room today due to symptoms of worsening ptosis involving his left eyelid. Patient states that he has a history of having suffered with a left- sided Ontiveros's palsy about 25 years ago. It took him several weeks to notice improvement from that condition. He had been doing well and has noted that he does continue to experience ptosis involving his left eyelid usually worse by the end of the day. This is been ongoing since his initial diagnosis in 1990. Today he awoke as usual in the morning and noticed that he was having trouble brushing his teeth. When he tried to gargle and spit out the water came out of the right side of his mouth. He found this very unusual. He mentioned this to his who felt that he was having more ptosis of his left eyelid this morning. Usually this is noticeable more at the end of the day. For this reason she was recommending he go to the emergency room for further evaluation. He was brought into the ER today at [facility] and was evaluated by Dr. Beckett. He was sent for a computed tomography scan of the brain which was reported negative for any acute abnormalities. He underwent a carotid Doppler ultrasound which revealed 30% stenosis of both internal carotid arteries. The patient has been taking Plavix and aspirin daily for several years. When examined in the emergency room by Dr. Wagner there was concern that he was having more than just a Ontiveros's palsy reaction. There was concern for possibility of central process producing his facial weakness. For this reason he was admitted to hospital for further workup of stroke. There was also question of possibility of myasthenia gravis producing ptosis of the eyelid. When questioned about any recent symptoms of weakness or swallowing difficulties or diplopia he has not had any of these symptoms recently. Apparently he had diplopia years ago after suffering a closed head injury. This resolved on its own. As noted his CAT scan of the brain was negative. He has no previous history of stroke. He does have a history of coronary artery disease and has had stent placement in the past. In the emergency room his blood pressure was very elevated. He had evidence of hypertensive urgency. His blood pressure was noted to be 238/101. He was given some treatment in the emergency room and admitted to the hospital. The patient's neurological examination today at bedside reveals him to have evidence of a right lower motor neuron facial weakness pattern. He has decreased furling of the right frontalis muscle. He has decrease eyeblink in the right eyelid. He has flattening of the right angle of the mouth as well. These findings suggest possibility of acute right sided idiopathic Ontiveros's palsy. On further questioning on of this past week he was outside in the cold weather and was exposed to cold weather on the face for at least an hour to working outdoors. We have mentioned that on occasions Ontiveros's palsy seems to occur with exposure to cold on occasion. As noted his blood pressure was elevated and there was still concern for possibility of central causes for stroke. We have recommended for the patient to undergo a MRI of the brain for further evaluation. We have described the usual course of treatment for Ontiveros's palsy as he is aware of this from his first episode many years ago. We have explained that Ontiveros's palsy can recur. At this time it appears to be affecting his right side of the face. The patient denies any change in taste sensation on the right side of the tongue. He is not appreciated any hyperacusis in the right ear. We have recommended the patient to be maintained on low-dose prednisone as well as a ten-day course of Valtrex as immediate treatment for acute Ontiveros's palsy. We have explained all of these findings in detail to the patient today and all of his questions were answered to the best of our ability. The patient is now admitted and neurology has been consulted for further evaluation and recommendations. Review of Systems Constitutional: Denies chills, Denies fever Eyes: denies blurred vision, denies pain Ears, nose, mouth and throat: Denies headache, Denies sore throat Cardiovascular: Denies chest pain, Denies shortness of breath Respiratory: Denies cough Gastrointestinal: Denies abdominal pain, Denies diarrhea, Denies nausea, Denies vomiting Musculoskeletal: Denies myalgias Integumentary: Denies pruritus, Denies rash Neurological: Reports tingling, Denies numbness, Denies weakness Psychiatric: Denies anxiety, Denies depression Endocrine: Denies fatigue, Denies weight change Past Medical History Past Medical History: Coronary Artery Disease (CAD), Chest Pain / Angina, Hyperlipidemia, Hypertension, Myocardial Infarction ([place]) Additional Past Medical History / Comment(s): [place] 2006, ontiveros's palsy which caused L eyelid droop and slight droop to L side of mouth, chron's dx. Last Myocardial Infarction Date:: 2005 History of Any Multi-Drug Resistant Organisms: None Reported Past Surgical History: Adenoidectomy, Heart Catheterization With Stent, Tonsillectomy Additional Past Surgical History / Comment(s): 2005 Cardiac cath with stenting of LAD, anal fistula surgery, cardiac stents Past Anesthesia/Blood Transfusion Reactions: No Reported Reaction Additional Past Anesthesia/Blood Transfusion Reaction / Comment(s): Pt has never recieved blood. Date of Last Stent Placement:: 2005 Past Psychological History: Anxiety Smoking Status: Former smoker Past Alcohol Use History: Occasional Past Drug Use History: None Reported - Past Family History Father Family Medical History: Coronary Artery Disease (CAD) (Father at age of 77 from the myocardial infarction when he acquired at the age of 60 and he also developed prostate cancer), Myocardial Infarction ([place]) Additional Family Medical History / Comment(s): Father of [place] Mother Family Medical History: Dementia (Mother at age of 89 from Alzheimer dementia.) Additional Family Medical History / Comment(s): Mother of alzhiemer's Brother(s) Family Medical History: Cancer (Patient had 4 brothers one of his brother from lung cancer the other one from lead poisoning and the third one is alive.), Myocardial Infarction ([place]) Additional Family Medical History / Comment(s): Brother of [place] at age 55yrs but had used cocaine and other drugs. Sister(s) Family Medical History: Cancer (Patient has 3 sisters to alive and one from lung cancer) Son(s) Family Medical History: No Reported History (Patient has 5 sons no major medical problems as well as 5 stepsons.) Medications and Allergies Home Medications Medication Instructions Recorded Confirmed Type B Complex-Vit C-Vit E-Zinc [Z-Bec] 1 tab PO DAILY 10/14/14 08/26/17 History Nitroglycerin Sl Tabs [Nitrostat] 0.4 mg SL Q5M PRN 10/14/14 08/26/17 History Quinapril HCl [Accupril] 20 mg PO BID 10/14/14 08/26/17 History Metoprolol Tartrate [Lopressor] 50 mg PO BID #60 tab 10/15/14 08/26/17 Rx Aspirin 81 mg PO HS 02/04/15 08/26/17 History Clopidogrel [Plavix] 75 mg PO DAILY 02/04/15 08/26/17 History sulfaSALAzine [Azulfidine] 1,000 mg PO QID 02/04/15 08/26/17 History Cholecalciferol [Vitamin D3] 1,000 unit PO DAILY 09/27/15 08/26/17 History Multivit-Mins/Iron/Folic/Lycop 1 tab PO DAILY 01/18/16 08/26/17 History [Centrum Men's Tablet] Rosuvastatin [Crestor] 20 mg PO HS 01/18/16 08/26/17 History Allergies Allergy/AdvReac Type Severity Reaction Status Date / Time influenza virus vaccine, Allergy Unknown Verified 08/26/17 12:38 specific [influenza virus vacc,specific] Penicillins AdvReac Unknown Verified 08/26/17 12:38 Childhood Physical Examination - Vital Signs Vital Signs: Vital Signs Temp Pulse Pulse Resp BP BP Pulse Ox 08/26/17 18:19 63 16 158/72 97 08/26/17 16:25 55 L 16 174/77 95 08/26/17 15:25 54 L 16 163/70 93 L 08/26/17 14:25 59 L 16 181/77 93 L 08/26/17 13:48 96.0 F L 73 18 171/79 97 08/26/17 13:25 69 18 190/88 96 08/26/17 12:35 66 18 202/87 95 08/26/17 11:50 98.3 F 67 20 238/101 98 Intake and Output 08/26/17 08/26/17 08/26/17 06:59 14:59 22:59 Output Total 0 Balance 0 Output: Urine 0 Other: Weight 94.347 kg Patient Weight 08/27/17 06:59 Weight 94.347 kg - Constitutional General appearance: average body habitus, cooperative - EENT EENT: PERRL, mucous membranes moist - Respiratory Respiratory: lungs clear, normal breath sounds - Cardiovascular Cardiovascular: regular rate, normal S1, normal S2 Extremities: no peripheral edema bilaterally - Gastrointestinal Gastrointestinal: normoactive bowel sounds - Integumentary Integumentary: normal - Neurologic Cranial nerve examination: PERRL, EOMI, VFF, V1/V2/V3 grossly intact, tongue midline, intact gag reflex, intact corneal reflex, facial droop (There is evidence of a right lower motor neuron facial weakness pattern.), normal palatal elevation Speech examination: intact Sensorimotor examination: intact Detailed motor examination: grossly full strength in all extremities Motor examination - right side: 4/5: biceps, triceps, wrist flexion, wrist extension, liner machine operator, hip flexors, knee extensors, dorsiflexion, toe extension (EHL) , plantarflexion Motor examination - left side: 4/5: biceps, triceps, wrist flexion, wrist extension, liner machine operator, hip flexors, knee extensors, dorsiflexion, toe extension (EHL) , plantarflexion Detailed sensory examination: intact Reflex and gait examination: intact Reflexes: 1+: ankle, bicep, knee, tricep - Musculoskeletal Musculoskeletal: no pain - Psychiatric Psychiatric: mood/affect appropriate, cooperative Results - Laboratory Findings CBC and BMP: 08/26/17 12:17 08/26/17 12:17 Abnormal Lab Findings: Abnormal Labs 08/26/17 08/26/17 11:59 12:17 Glucose 165 H POC Glucose (mg/dL) 157 H Assessment and Plan (1) Right-sided Ontiveros's palsy Current Visit: Yes Status: Acute Code(s): G51.0 - ONTIVEROS'S PALSY SNOMED Code (s): 713513935 (2) H/O Ontiveros's palsy Current Visit: Yes Status: Acute Code(s): Z86.69 - PERSONAL HISTORY OF DIS OF THE NERVOUS SYS AND SENSE ORGANS SNOMED Code(s): 803031277 (3) CAD (coronary artery disease) Current Visit: No Status: Acute Code(s): I25.10 - ATHSCL HEART DISEASE OF [place] CORONARY ARTERY W/O ANG PCTRS SNOMED Code(s): 55363725 (4) Hypertension Current Visit: No Status: Acute Code(s): I10 - ESSENTIAL (PRIMARY) HYPERTENSION SNOMED Code(s): 62299025 Plan: This patient is a 77-year-old right-handed white male who was admitted to the hospital today with symptoms of left eyelid ptosis. Apparently he got up this morning and was washing his face and gargling and when he attempted to spit the multiple washouts he notices it was coming out the right side of his mouth. He was also noticing difficulty with excessive tearing of his right eye. His noted that his left eyelid was showing more signs of ptosis. He has a history of an old left Ontiveros's palsy which she suffered 25 years ago affecting his left side. According to the patient he always has some degree of ptosis involving the left eyelid. This morning it was more noticeable to the . He was recommended to come into the emergency room for further evaluation. He was seen in the ER and was sent for a computed tomography scan of the brain which was reported negative for any acute abnormality. She underwent a carotid Doppler ultrasound which reveals 30% stenosis of both internal carotid arteries. He has no previous history of stroke. His neurological examination reveals findings suggesting an acute right idiopathic Ontiveros's palsy. He has evidence of decrease eyelid closure with rapid eye blinks on the right side. He has decrease furling of the frontalis muscle on the right side as well. He has flattening of the nasolabial fold on the right side. He has a right facial droop on the right as well. These findings suggest possibility of acute right- sided Ontiveros's palsy. We are recommending to place the patient on combination of Valtrex and prednisone for acute management. The Valtrex is to be used at 1000 mg by mouth twice a day for 10 days. We are also recommending the patient to use artificial tears to the right eye 4 times a day. He is to patch the eye at night when sleeping. We've instructed him on some simple exercises for treatment of Ontiveros's palsy. He may also follow up with physical therapy for more extensive training in exercise program. The patient's blood pressure has remained elevated since admission. We have recommended a MRI of the brain to rule out any possibility of brainstem involvement. This seems to be less likely but will follow through with an MRI of the brain tomorrow morning. We' ve explained all of his clinical findings to the patient in detail. All of his questions were answered. We will continue close monitoring of his blood pressure. His overall prognosis at this time remains fair. We will continue close neurological follow-up of this patient during this admission. Time with Patient: Greater than 30
[2017-08-26] MEDS ORDERED: valACYclovir 500 MG TAB PO SCH (21:00)
[2017-08-26] MEDS ORDERED: ATORVASTATIN 40 MG TAB PO SCH (21:00)
[2017-08-26] MEDS ORDERED: ASPIRIN 81 MG PO SCH (21:00)
[2017-08-26] MEDS ORDERED: ALPRAZolam 0.5 MG TAB PO PRN (21:45)
[2017-08-26] MEDS ORDERED: METOPROLOL TARTRATE 5 MG/5 ML VIAL IVP PRN (21:46)
[2017-08-26] MEDS: valACYclovir HCL 1,000 MG TABLET PO SCH (22:58)
[2017-08-26] MEDS: ARTIFICIAL TEARS-HYPROMELLOSE DROPS 15 ML BTL RIGHT EYE SCH (22:58)
[2017-08-27 02:58] VITALS: RESP 18
[2017-08-27 06:25] LABS: Basophils # (A) 0.1 k/uL (0-0.2); Basophils % (A) 1 %; Eosinophils # (A) 0.1 k/uL (0-0.7); Eosinophils % (A) 2 %; HCT 40.9 % (39.0-53.0); HGB 12.6 gm/dL (13.0-17.5); Lymphocytes # (A) 2.2 k/uL (1.0-4.8); Lymphocytes % (A) 27 %; MCH 29.3 pg (25.0-35.0); MCHC 30.9 g/dL (31.0-37.0); MCV 94.8 fL (80.0-100.0); Mean Platelet Volume 7.4; Monocytes # (A) 0.5 k/uL (0-1.0); Monocytes % (A) 6 %; Neutrophils % (A) 62 %; Platelet Count 219 k/uL (150-450); RBC 4.31 m/uL (4.30-5.90); RDW 13.3 % (11.5-15.5)
[2017-08-27 06:41] LABS: ALT 27 U/L (21-72); AST 18 U/L (17-59); Albumin 3.8 g/dL (3.5-5.0); Alkaline Phosphatase 67 U/L (38-126); Anion Gap 10 mmol/L; Blood Urea Nitrogen 17 mg/dL (9-20); Calcium 8.9 mg/dL (8.4-10.2); Carbon Dioxide 26 mmol/L (22-30); Chloride 104 mmol/L (98-107); Cholesterol 168 mg/dL (<200); Glucose 120 mg/dL (74-99); HDL Cholesterol 60 mg/dL (40-60); LDL Cholesterol,Calculated 89 mg/dL (0-99); Potassium 4.4 mmol/L (3.5-5.1); Sodium 140 mmol/L (137-145); Total Bilirubin 0.6 mg/dL (0.2-1.3); Total Protein 6.3 g/dL (6.3-8.2); Triglycerides 97 mg/dL (<150)
[2017-08-27] MEDS: METOPROLOL TARTRATE 50 MG TAB PO SCH (08:31)
[2017-08-27] MEDS: ARTIFICIAL TEARS-HYPROMELLOSE DROPS 15 ML BTL RIGHT EYE SCH ×2 (08:31→15:24)
[2017-08-27] MEDS: LISINOPRIL 20 MG TAB PO SCH (08:32)
[2017-08-27] MEDS: HEPARIN SODIUM,PORCINE 5,000 UNIT/ML 1 ML VIAL SQ SCH (08:32)
[2017-08-27] MEDS: predniSONE 10 MG TAB PO SCH (08:33)
[2017-08-27] MEDS: valACYclovir HCL 1,000 MG TABLET PO SCH (08:33)
[2017-08-27] MEDS: sulfaSALAzine 500 MG TAB PO SCH ×2 (08:34→14:07)
[2017-08-27] MEDS ORDERED: CLOPIDOGREL 75 MG TAB PO SCH (09:00)
[2017-08-27] MEDS ORDERED: FAMOTIDINE 20 MG TAB PO SCH (09:00)
[2017-08-27 11:53] VITALS: BP 120/58; PULSE 63; TEMP 97.6
[2017-08-27] MEDS ORDERED: ASPIRIN 325 MG TAB PO SCH (12:00)
--- NOTE | 2017-08-27 13:45 | MR ---
EXAMINATION TYPE: MR brain wo con DATE OF EXAM: 08/27/2017 COMPARISON: NONE HISTORY: stroke, left sided weakness CONTRAST: Performed utilizing 0 mL intravenous Gadavist gadolinium contrast. TECHNIQUE: Multiplanar, multiecho imaging on a 3.0 Ilda magnet is performed through the brain. Stud y is performed within 24 hours of arrival to the hospital. The craniovertebral junction is normal. The pituitary is normal. Diffusion-weighted imaging is performed. No abnormal hyperintensity is present to suggest an acute i ntracranial infarct or acute ischemic change. There are couple of punctate hyperintensities within the deep white matter of the posterior syed ra diata bilaterally. These are nonspecific but could be related to microvascular ischemic change which appears within normal limits for the patient age. Ventricles and sulci are mildly prominent for the patient age. There is a retention cyst within the left maxillary sinus. Mild mucosal thickening may be within ethm oid air cells. Remaining paranasal sinuses and mastoid air cells are clear. IMPRESSIONS: 1. Mild age-related atrophy with a few scattered deep white matter changes not out of portion to the patient age. 2. No acute intracranial process.
--- NOTE | 2017-08-27 15:01 | P.DS ---
Providers Date of admission: 08/26/17 13:25 Expected date of discharge: 08/27/17 Attending physician: Libertad Harden MD Consults: 08/26/17 13:26 Consult Physician Urgent Consulting Provider: Maira Valladares Consult Reason/Comments: CVA Do you want consulting provider notified?: Yes [facility]: This is a 74-year-old male one of Dr. Medina with a previous medical history significant for coronary artery disease status post per continue his current intervention and stent placement of the LAD back in October 2005 followed by non-ST elevated myocardial infarction status post angioplasty and drug-eluting stent of the mid LAD in September 2014 with EF of 3540 percent at that time, hypertension and hypertensive cardiovascular disease, hyperlipidemia , benign prostatic hypertrophy, Crohn disease, complicted by fistula resection in the buttock area currently on the sulfasalazine last seen in 2015 for nonspecific chest pain comes in with facial numbness associated with ptosis and drooling of saliva from the right side. Patient states he has history of Ontiveros' s Palsy which was diagnosed in 1998 and does have ptosis and some drooping of the right side. He woke up this morning and was unable to suspect or from his mouth which is unusual for him. His noticed that his ptosis is worse. Patient had some headache and neck pain which is chronic. He does endorses tinnitus worse on the left for past few months. He denies any weakness, sensory deficit, discoordination, loss of vision, dysarthria or loss of speech CT head done in the ER was negative for any acute abnormality. Patient denies any recent travel or rash. Carotid Doppler were negative for any occlusion. EKG was normal sinus rhythm. Patient was admitted for possible stroke. Neurology consulted as patient does not have any involvement of the forehead. 08/27: Patient has been seen by Dr. Valladares with recommendations for Valtrex for 10 days, artificial tears and prednisone 10 mg 10 days. MRI of the brain showed mild age-related atrophy with a few scattered deep white matter changes. No acute intracranial process. Patient will be discharged home today in stable condition. Discharge diagnoses: 1. 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 2. Hypertension and hypertensive cardiovascular disease 3. Hyperlipidemia 4. Benign prostatic hypertrophy 5. Crohn disease 6. History of myocardial infarction and coronary artery disease with PCI of the LAD Discharge plan: Return home Impression and plan of care have been directed as dictated by the signing physician. Savana Alcaraz nurse practitioner acting as scribe for signing physician. Patient Condition at Discharge: Good Plan - Discharge Summary Discharge Rx Participant: No New Discharge Prescriptions: New Artificial Tears-Hypromellose [Artificial Tear Drops] 2 drops RIGHT EYE QID bottle Famotidine [Pepcid] 20 mg PO DAILY tab predniSONE 10 mg PO DAILY #10 tab valACYclovir HCL [Valtrex] 1,000 mg PO BID #20 tablet Continue Quinapril HCl [Accupril] 20 mg PO BID B Complex-Vit C-Vit E-Zinc [Z-Bec] 1 tab PO DAILY Nitroglycerin Sl Tabs [Nitrostat] 0.4 mg SL Q5M PRN PRN Reason: Chest Pain Metoprolol Tartrate [Lopressor] 50 mg PO BID #60 tab Aspirin 81 mg PO HS sulfaSALAzine [Azulfidine] 1,000 mg PO QID Clopidogrel [Plavix] 75 mg PO DAILY Cholecalciferol [Vitamin D3] 1,000 unit PO DAILY Rosuvastatin [Crestor] 20 mg PO HS Multivit-Mins/Iron/Folic/Lycop [Centrum Men's Tablet] 1 tab PO DAILY Discharge Medication List B Complex-Vit C-Vit E-Zinc [Z-Bec] 1 tab PO DAILY 10/14/14 [History] Nitroglycerin Sl Tabs [Nitrostat] 0.4 mg SL Q5M PRN 10/14/14 [History] Quinapril HCl [Accupril] 20 mg PO BID 10/14/14 [History] Metoprolol Tartrate [Lopressor] 50 mg PO BID #60 tab 10/15/14 [Rx] Aspirin 81 mg PO HS 02/04/15 [History] Clopidogrel [Plavix] 75 mg PO DAILY 02/04/15 [History] sulfaSALAzine [Azulfidine] 1,000 mg PO QID 02/04/15 [History] Cholecalciferol [Vitamin D3] 1,000 unit PO DAILY 09/27/15 [History] Multivit-Mins/Iron/Folic/Lycop [Centrum Men's Tablet] 1 tab PO DAILY 01/18/16 [ History] Rosuvastatin [Crestor] 20 mg PO HS 01/18/16 [History] Artificial Tears-Hypromellose [Artificial Tear Drops] 2 drops RIGHT EYE QID bottle 08/27/17 [Rx] Famotidine [Pepcid] 20 mg PO DAILY tab 08/27/17 [Rx] predniSONE 10 mg PO DAILY #10 tab 08/27/17 [Rx] valACYclovir HCL [Valtrex] 1,000 mg PO BID #20 tablet 08/27/17 [Rx] Follow up Appointment(s)/Referral(s): Maira Valladares MD [STAFF PHYSICIAN] - 1 Week (Follow up appointment is September 14 at 9:30am) Jeff Medina DO [Primary Care Provider] - 1 Week Ambulatory/Diagnostic Orders: Basic Metabolic Panel [LAB.AMB] Location: Determined By Patient Patient Instructions/Handouts: Ontiveros Palsy (DC) Discharge Disposition: HOME SELF-CARE
--- NOTE | 2017-08-27 19:04 | ECHOF ---
Referral Reason:Thrombus MEASUREMENTS -------- HEIGHT: 180.3 cm WEIGHT: 93.0 kg BP: 154/77 RVIDd: 3.2 cm (< 3.3) IVSd: 1.2 cm (0.6 - 1.1) LVIDd: 3.6 cm (3.9 - 5.3) LVPWd: 1.2 cm (0.6 - 1.1) IVSs: 1.7 cm LVIDs: 2.5 cm LVPWs: 1.7 cm LA Diam: 3.4 cm (2.7 - 3.8) LAESV Index (A-L): 29.13 ml/m Ao Diam: 3.1 cm (2.0 - 3.7) AV Cusp: 2.0 cm (1.5 - 2.6) MV EXCURSION: 11.540 mm (> 18.000) MV EF SLOPE: 52 mm/s (70 - 150) EPSS: 0.6 cm MV E Eliesre: 0.67 m/s MV DecT: 393 ms MV A Elieser: 1.03 m/s MV E/A Ratio: 0.65 RAP: 5.00 mmHg RVSP: 36.03 mmHg FINDINGS -------- Sinus rhythm. This was a technically good study. The left ventricular size is normal. There is borderline concentric left ventricular hypertrophy. Overall left ventricular systolic function is normal with, an EF between 60 - 65 %. The right ventricle is normal in size. LA is midly dilated 29-33ml/m2. The right atrium is normal in size. There is mild aortic valve sclerosis. The mitral valve leaflets are mildly thickened. Mild mitral annular calcification present. Mild tricuspid regurgitation present. There is mild pulmonary hypertension. The right ventricular systolic pressure, as measured by Doppler, is 36.03mmHg. The pulmonic valve was not well visualized. The aortic root size is normal. Normal inferior vena cava with normal inspiratory collapse consistent with estimated right atrial pre ssure of 5 mmHg. There is no pericardial effusion. CONCLUSIONS -------- 1. Sinus rhythm. 2. This was a technically good study. 3. The left ventricular size is normal. 4. There is borderline concentric left ventricular hypertrophy. 5. Overall left ventricular systolic function is normal with, an EF between 60 - 65 %. 6. The right ventricle is normal in size. 7. LA is midly dilated 29-33ml/m2. 8. The right atrium is normal in size. 9. There is mild aortic valve sclerosis. 10. The mitral valve leaflets are mildly thickened. 11. Mild mitral annular calcification present. 12. Mild tricuspid regurgitation present. 13. There is mild pulmonary hypertension. 14. The right ventricular systolic pressure, as measured by Doppler, is 36.03mmHg. 15. The pulmonic valve was not well visualized. 16. The aortic root size is normal. 17. Normal inferior vena cava with normal inspiratory collapse consistent with estimated right atrial pressure of 5 mmHg. 18. There is no pericardial effusion. BLOOD TESTER FOWL: Gracia Julien RDCS
== END 2017-08-27 15:12 | disposition home or self-care (01) ==
LOC: EC 11:46 → INTOOBSV 13:25 → 6SEL 13:25 → 3OBS 08-27 09:38
PROVIDERS: ADMIT Internal Medicine; ATTEND Internal Medicine
DX: H02.402 Unspecified ptosis of left eyelid (principal); R29.810 Facial weakness; G51.0 Bell's palsy; I11.9 Hypertensive heart disease without heart failure; E78.5 Hyperlipidemia, unspecified; N40.0 Benign prostatic hyperplasia without lower urinary tract symptoms; K50.90 Crohn's disease, unspecified, without complications; I25.2 Old myocardial infarction; I25.10 Atherosclerotic heart disease of native coronary artery without angina pectoris; Z95.5 Presence of coronary angioplasty implant and graft; R20.0 Anesthesia of skin; M54.2 Cervicalgia; R51 Headache; H93.19 Tinnitus, unspecified ear; Z79.899 Other long term (current) drug therapy; Z79.82 Long term (current) use of aspirin; Z79.02 Long term (current) use of antithrombotics/antiplatelets; Z88.0 Allergy status to penicillin; Z88.7 Allergy status to serum and vaccine; F41.9 Anxiety disorder, unspecified; Z87.891 Personal history of nicotine dependence; Z82.0 Family history of epilepsy and other diseases of the nervous system; Z80.42 Family history of malignant neoplasm of prostate; Z80.1 Family history of malignant neoplasm of trachea, bronchus and lung; R33.9 Retention of urine, unspecified; I16.0 Hypertensive urgency
CPT/HCPCS: 99291; 96372; 36415; 93005; 93306; 97161; 92523; 83519; 80061; 80053 ×2; 82550; 82553; 84484; 85025 ×2; 85610; 85730; 71046; 93880; 70450; 70551; G0378 ×2; J1644; J7512 ×2

== ENCOUNTER 2018-01-03 10:18 | Day surgery (SDC) | payer MEDICARE ==
[2018-01-01 09:18] VITALS: BMI 29.0
[~2018-01-03 10:18] MED LIST: LACTATED RINGERS 1,000 ML IV SCH
[2018-01-03] MEDS ORDERED: LIDOCAINE 1% 20 ML VIAL (10MG/ML) FOR IV START INTRADERMA ONE (11:00)
[2018-01-03 11:02] VITALS: RESP 16; TEMP 97
[2018-01-03] MEDS ORDERED: LIDOCAINE 1% INJ 10MG/ML (20 ML MDV) ONE (11:53)
[2018-01-03] MEDS ORDERED: PROPOFOL 10 MG/ML 20 ML VIAL IV ONE (11:53)
[2018-01-03 12:53] VITALS: BP 171/74; PULSE 63
--- NOTE | 2018-01-03 14:42 | P.PCN ---
Date of Procedure: 01/03/18 Procedure(s) Performed: Procedure: Colonoscopy and biopsy. Preoperative diagnosis: History of polyps, diarrhea and history of Crohn's disease.. Postoperative diagnosis: 1. Exam within normal limits. 2. Could not intubate the ileocecal valve. 3. Biopsies obtained from the colon. Preparation: HalfLytely prep. Sedation: Was provided by anesthesia. Brief clinical history: The patient is a 77-year-old male with history of Crohn' s colitis he has been maintained on Azulfidine. He also has history of polyps his last colonoscopy was in 07/2013 and that showed minimal crypt distortion on biopsy with no active colitis. No dysplasia. The patient reports normal bowel movement first thing in the morning then his movements become loose and diarrheic in the course of the day. Procedure: With the patient on his left lateral decubitus position and after informed consent and adequate sedation, the perianal area was inspected and it did not show any fissures or fistulas. There were no masses felt on digital rectal examination. The Olympus CFQ 160L video colonoscope was then inserted in the rectum in the usual fashion and advanced to the cecum. I could not intubate the ileocecal valve. The colon appeared healthy with no obvious abnormalities or any polyps or tumors. No obvious diverticular disease. I obtained random biopsies then the endoscope was withdrawn. The patient tolerated the procedure well. Plan: The patient was reassured. Will await biopsy results. I will see in follow-up in few weeks and make further plans based on his course. I will keep you updated on his progress.
== END 2018-01-03 13:06 | disposition home or self-care (01) ==
LOC: ORWHC2ENDO 10:18
DX: R19.7 Diarrhea, unspecified (principal); Z86.010 Personal history of colon polyps; K50.90 Crohn's disease, unspecified, without complications; I10 Essential (primary) hypertension; E78.5 Hyperlipidemia, unspecified; I25.118 Atherosclerotic heart disease of native coronary artery with other forms of angina pectoris; G51.0 Bell's palsy; I25.2 Old myocardial infarction; Z95.5 Presence of coronary angioplasty implant and graft; Z79.899 Other long term (current) drug therapy; Z79.02 Long term (current) use of antithrombotics/antiplatelets; Z79.82 Long term (current) use of aspirin; Z88.0 Allergy status to penicillin; Z88.7 Allergy status to serum and vaccine
CPT/HCPCS: 88305; 45380; J2001; J2704

== ENCOUNTER 2018-10-23 09:18 | Emergency (ER) | payer MEDICARE ==
[2018-10-23 09:36] VITALS: RESP 18; TEMP 98.5
[2018-10-23] MEDS ORDERED: hydrALAZINE HCL 20 MG/ML 1 ML VIAL IVP STA (09:46)
[2018-10-23] MEDS ORDERED: SODIUM CHLORIDE 0.9% 500 ML 500 ML IV STA (09:46)
--- NOTE | 2018-10-23 10:06 | ED ---
General Adult HPI - General Chief complaint: Recheck/Abnormal Lab/Rx Stated complaint: elevated BP Time Seen by Provider: 10/23/18 09:39 Source: patient, RN notes reviewed Mode of arrival: ambulatory Limitations: no limitations - History of Present Illness Initial comments: 70-year-old male presents emergency Department with chief complaint of hypertens ion. Patient states he took his blood pressure last night and was elevated. Patient states he takes 2 medications for this. Patient denies any current chest pain, shortness breath, headache, dizziness, nausea vomiting. Patient admits that he had recent pneumonia and states he will have slight cough occasionally. Patient states that he took his blood pressure medication around 8:00 this morning. Patient is concerned because his blood pressure was elevated so he felt that he needs to be evaluated. - Related Data Home Medications Medication Instructions Recorded Confirmed B Complex-Vit C-Vit E-Zinc [Z-Bec] 1 tab PO DAILY 10/14/14 10/23/18 Nitroglycerin Sl Tabs [Nitrostat] 0.4 mg SL Q5M PRN 10/14/14 10/23/18 Quinapril HCl [Accupril] 20 mg PO BID 10/14/14 10/23/18 Aspirin 81 mg PO HS 02/04/15 10/23/18 Clopidogrel [Plavix] 75 mg PO DAILY 02/04/15 10/23/18 sulfaSALAzine [Azulfidine] 1,000 mg PO TID 02/04/15 10/23/18 Cholecalciferol [Vitamin D3] 1,000 unit PO DAILY 09/27/15 10/23/18 Multivit-Mins/Iron/Folic/Lycop 1 tab PO DAILY 01/18/16 10/23/18 [Centrum Men's Tablet] Rosuvastatin [Crestor] 20 mg PO HS 01/18/16 10/23/18 Ubidecarenone [Co Q-10] 100 mg PO DAILY 01/01/18 10/23/18 Previous Rx's Medication Instructions Recorded Metoprolol Tartrate [Lopressor] 50 mg PO BID #60 tab 10/15/14 Allergies Allergy/AdvReac Type Severity Reaction Status Date / Time influenza virus vaccine, Allergy Unknown Verified 10/23/18 10:07 specific [influenza virus vacc,specific] Penicillins AdvReac Unknown Verified 10/23/18 10:07 Childhood Review of Systems ROS Statement: Those systems with pertinent positive or pertinent negative responses have been documented in the HPI. ROS Other: All systems not noted in ROS Statement are negative. Past Medical History Past Medical History: Chest Pain / Angina, Hyperlipidemia, Hypertension, M yocardial Infarction (AR) Additional Past Medical History / Comment(s): AR x 2, simmons's palsy which caused L eyelid droop and slight droop to L side of mouth, rt simmons's palsy august 2017, crohns dx. Last Myocardial Infarction Date:: 2005 History of Any Multi-Drug Resistant Organisms: None Reported Past Surgical History: Adenoidectomy, Heart Catheterization With Stent, Tonsillectomy Additional Past Surgical History / Comment(s): 2006 Cardiac cath with stenting of LAD, anal fistula surgery, cardiac stents x2 Past Anesthesia/Blood Transfusion Reactions: No Reported Reaction Additional Past Anesthesia/Blood Transfusion Reaction / Comment(s): Pt has never received blood. Date of Last Stent Placement:: 2015 Past Psychological History: Anxiety Smoking Status: Former smoker Past Alcohol Use History: Rare Past Drug Use History: None Reported - Past Family History Father Family Medical History: Coronary Artery Disease (CAD), Myocardial Infarction (AR) Additional Family Medical History / Comment(s): Father of AR Mother Family Medical History: Dementia Additional Family Medical History / Comment(s): Mother of alzhiemer's Brother(s) Family Medical History: Cancer, Myocardial Infarction (AR) Additional Family Medical History / Comment(s): Brother of AR at age 55yrs but had used cocaine and other drugs. Sister(s) Family Medical History: Cancer Son(s) Family Medical History: No Reported History General Exam Limitations: no limitations General appearance: alert, in no apparent distress Head exam: Present: atraumatic, normocephalic, normal inspection Neck exam: Present: normal inspection. Absent: tenderness, meningismus, lymphadenopathy Respiratory exam: Present: normal lung sounds bilaterally. Absent: respiratory distress, wheezes, rales, rhonchi, stridor Cardiovascular Exam: Present: regular rate, normal rhythm, normal heart sounds. Absent: systolic murmur, diastolic murmur, rubs, gallop, clicks GI/Abdominal exam: Present: soft, normal bowel sounds. Absent: distended, tenderness, guarding, rebound, rigid Neurological exam: Present: alert, oriented X3, CN II-XII intact, reflexes normal. Absent: motor sensory deficit Skin exam: Present: warm, dry, intact, normal color. Absent: rash Course Vital Signs 10/23/18 10/23/18 10/23/18 09:32 10:23 10:30 Temperature 98.5 F Pulse Rate 68 68 67 Respiratory 18 18 18 Rate Blood Pressure 193/87 185/88 156/84 O2 Sat by Pulse 97 95 94 L Oximetry EKG Findings - EKG Comments: EKG Findings:: EKG performed at 10:31 normal sinus rhythm with left axis deviation rate right bundle lamberto block, rate of 64 VA 192 QRS 152 QT/QTC 426/439 Medical Decision Making - Medical Decision Making 78-year-old male presented for hypertension. Patient's blood pressure did improve without medications emergency department. Patient will be discharged la b work is unremarkable. - Lab Data Result diagrams: 10/23/18 10:23 10/23/18 10:23 Lab Results 10/23/18 10/23/18 10/23/18 Range/Units 10:23 10:23 10:23 WBC 7.1 (3.8-10.6) k/uL RBC 4.40 (4.30-5.90) m/uL Hgb 13.6 (13.0-17.5) gm/dL Hct 40.4 (39.0-53.0) % MCV 91.9 (80.0-100.0) fL MCH 31.0 (25.0-35.0) pg MCHC 33.7 (31.0-37.0) g/dL RDW 13.8 (11.5-15.5) % Plt Count 263 (150-450) k/uL Neutrophils % 66 % Lymphocytes % 21 % Monocytes % 6 % Eosinophils % 4 % Basophils % 1 % Neutrophils # 4.7 (1.3-7.7) k/uL Lymphocytes # 1.5 (1.0-4.8) k/uL Monocytes # 0.5 (0-1.0) k/uL Eosinophils # 0.3 (0-0.7) k/uL Basophils # 0.0 (0-0.2) k/uL Sodium 140 (137-145) mmol/L Potassium 4.5 (3.5-5.1) mmol/L Chloride 106 (98-107) mmol/L Carbon Dioxide 25 (22-30) mmol/L Anion Gap 9 mmol/L BUN 15 (9-20) mg/dL Creatinine 0.67 (0.66-1.25) mg/dL Est GFR (CKD-EPI)AfAm >90 (>60 ml/min/1.73 sqM) Est GFR (CKD-EPI)NonAf >90 (>60 ml/min/1.73 sqM) Glucose 134 H (74-99) mg/dL Calcium 9.5 (8.4-10.2) mg/dL Magnesium 2.2 (1.6-2.3) mg/dL Total Bilirubin 0.6 (0.2-1.3) mg/dL AST 24 (17-59) U/L ALT 27 (21-72) U/L Alkaline Phosphatase 75 (38-126) U/L Troponin I <0.012 (0.000-0.034) ng/mL Total Protein 6.9 (6.3-8.2) g/dL Albumin 4.3 (3.5-5.0) g/dL Disposition Clinical Impression: Hypertension Disposition: HOME SELF-CARE Condition: Stable Instructions (If sedation given, give patient instructions): Hypertension (ED) Additional Instructions: Please return to the Emergency Department if symptoms worsen or any other concerns. Is patient prescribed a controlled substance at d/c from ED?: No Referrals: Jeff Medina DO [Primary Care Provider] - 1-2 days Time of Disposition: 11:40
[2018-10-23 10:33] LABS: Basophils % (A) 1 %; Eosinophils # (A) 0.3 k/uL (0-0.7); Eosinophils % (A) 4 %; HCT 40.4 % (39.0-53.0); HGB 13.6 gm/dL (13.0-17.5); Lymphocytes # (A) 1.5 k/uL (1.0-4.8); Lymphocytes % (A) 21 %; MCHC 33.7 g/dL (31.0-37.0); MCV 91.9 fL (80.0-100.0); Mean Platelet Volume 7.4; Monocytes # (A) 0.5 k/uL (0-1.0); Monocytes % (A) 6 %; Neutrophils # (A) 4.7 k/uL (1.3-7.7); Neutrophils % (A) 66 %; Platelet Count 263 k/uL (150-450); RDW 13.8 % (11.5-15.5); WBC 7.1 k/uL (3.8-10.6)
[2018-10-23 10:42] LABS: ALT 27 U/L (21-72); AST 24 U/L (17-59); Albumin 4.3 g/dL (3.5-5.0); Alkaline Phosphatase 75 U/L (38-126); Anion Gap 9 mmol/L; Blood Urea Nitrogen 15 mg/dL (9-20); Calcium 9.5 mg/dL (8.4-10.2); Carbon Dioxide 25 mmol/L (22-30); Chloride 106 mmol/L (98-107); Glucose 134 mg/dL (74-99); Magnesium 2.2 mg/dL (1.6-2.3); Potassium 4.5 mmol/L (3.5-5.1); Sodium 140 mmol/L (137-145); Total Bilirubin 0.6 mg/dL (0.2-1.3); Total Protein 6.9 g/dL (6.3-8.2)
--- NOTE | 2018-10-23 11:07 | XR ---
EXAMINATION TYPE: XR chest 2V DATE OF EXAM: 10/23/2018 COMPARISON: August 26, 2017 HISTORY: Shortness of breath TECHNIQUE: Frontal and lateral views of the chest are obtained. FINDINGS: Scattered senescent parenchymal changes noted. Hyperinflation compatible with COPD. No evidence for infiltrate. No evidence for atelectasis. Heart size is stable. Mediastinal structures are stable and grossly unremarkable. No evidence for hilar prominence. Degenerative changes dorsal spine. IMPRESSION: 1. No evidence for acute pulmonary disease.
[2018-10-23 11:56] VITALS: BP 155/81; PULSE 65
== END 2018-10-23 11:59 | disposition home or self-care (01) ==
LOC: EC 09:18
DX: I10 Essential (primary) hypertension (principal); R05 Cough; I20.9 Angina pectoris, unspecified; I25.2 Old myocardial infarction; E78.5 Hyperlipidemia, unspecified; Z87.891 Personal history of nicotine dependence; Z95.5 Presence of coronary angioplasty implant and graft; Z98.890 Other specified postprocedural states; Z79.02 Long term (current) use of antithrombotics/antiplatelets; Z79.82 Long term (current) use of aspirin; Z79.899 Other long term (current) drug therapy; Z88.0 Allergy status to penicillin; Z88.7 Allergy status to serum and vaccine
CPT/HCPCS: 36415; 71046; 80053; 83735; 84484; 85025; 93005; 96360; 99284

== ENCOUNTER 2019-10-31 09:58 | Emergency (ER) | payer MEDICARE ==
[2019-10-31 10:05] VITALS: TEMP 98.3
--- NOTE | 2019-10-31 10:26 | ED ---
General Adult HPI - General Chief complaint: Abdominal Pain Stated complaint: stomach pain Time Seen by Provider: 10/31/19 10:00 Source: patient, RN notes reviewed, old records reviewed Mode of arrival: ambulatory Limitations: no limitations - History of Present Illness Initial comments: This is a 79-year-old male who presents emergency Department complaining that he has been having abdominal pain on the left side for approximately a week and a half. Patient states the pain comes very sharp in nature and only last 1-2 seconds. Patient states he goes away. Patient states when he walks on the treadmill he never has the pain however when he sitting around the house or driving his car he does get it and in fact on the way in today he had 4 times each time lasting between one to 2 seconds. Patient denies any nausea vomiting diarrhea. Patient denies any recent fever chills. Patient has any injury or trauma. Patient denies any lumps bumps on the abdomen. Patient denies any rashes. Currently patient has no pain. - Related Data Home Medications Medication Instructions Recorded Confirmed B Complex-Vit C-Vit E-Zinc [Z-Bec] 1 tab PO DAILY 10/14/14 10/23/18 Nitroglycerin Sl Tabs [Nitrostat] 0.4 mg SL Q5M PRN 10/14/14 10/23/18 Quinapril HCl [Accupril] 20 mg PO BID 10/14/14 10/23/18 Aspirin 81 mg PO HS 02/04/15 10/23/18 Clopidogrel [Plavix] 75 mg PO DAILY 02/04/15 10/23/18 sulfaSALAzine [Azulfidine] 1,000 mg PO TID 02/04/15 10/23/18 Cholecalciferol [Vitamin D3 (25 1,000 unit PO DAILY 09/27/15 10/23/18 Mcg = 1000 Iu)] Multivit-Mins/Iron/Folic/Lycop 1 tab PO DAILY 01/18/16 10/23/18 [Centrum Men's Tablet] Rosuvastatin [Crestor] 20 mg PO HS 01/18/16 10/23/18 Ubidecarenone [Co Q-10] 100 mg PO DAILY 01/01/18 10/23/18 Previous Rx's Medication Instructions Recorded Metoprolol Tartrate [Lopressor] 50 mg PO BID #60 tab 10/15/14 Allergies Allergy/AdvReac Type Severity Reaction Status Date / Time influenza virus vaccine, Allergy Unknown Verified 10/23/18 10:07 specific [influenza virus vacc,specific] Penicillins AdvReac Unknown Verified 10/23/18 10:07 Childhood Review of Systems ROS Statement: Those systems with pertinent positive or pertinent negative responses have been documented in the HPI. ROS Other: All systems not noted in ROS Statement are negative. 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 Last Myocardial Infarction Date:: 2005 History of Any Multi-Drug Resistant Organisms: None Reported Past Surgical History: Adenoidectomy, Heart Catheterization With Stent, Tonsillectomy Additional Past Surgical History / Comment(s): 2005 Cardiac cath with stenting of LAD, anal fistula surgery, cardiac stents x2 Past Anesthesia/Blood Transfusion Reactions: No Reported Reaction Additional Past Anesthesia/Blood Transfusion Reaction / Comment(s): Pt has never received blood. Date of Last Stent Placement:: 2015 Past Psychological History: Anxiety Smoking Status: Former smoker Past Alcohol Use History: Rare Past Drug Use History: None Reported - Past Family History Father Family Medical History: Coronary Artery Disease (CAD), Myocardial Infarction ([place]) Additional Family Medical History / Comment(s): Father of [place] Mother Family Medical History: Dementia Additional Family Medical History / Comment(s): Mother of alzhiemer's Brother(s) Family Medical History: Cancer, Myocardial Infarction ([place]) Additional Family Medical History / Comment(s): Brother of [place] at age 55yrs but had used cocaine and other drugs. Sister(s) Family Medical History: Cancer Son(s) Family Medical History: No Reported History General Exam - General Exam Comments Initial Comments: GENERAL: Patient is well-developed and well-nourished. Patient is nontoxic and well- hydrated and is in no acute distress. ENT: Neck is soft and supple. No significant lymphadenopathy is noted. Oropharynx is clear. Moist mucous membranes. Neck has full range of motion without eliciting any pain. EYES: The sclera were anicteric and conjunctiva were pink and moist. Extraocular movements were intact and pupils were equal round and reactive to light. Eyelids were unremarkable. PULMONARY: Unlabored respirations. Good breath sounds bilaterally. No audible rales rhonchi or wheezing was noted. CARDIOVASCULAR: There is a regular rate and rhythm without any murmurs gallops or rubs. ABDOMEN: Soft and nontender with normal bowel sounds. SKIN: Skin is clear with no lesions or rashes and otherwise unremarkable. NEUROLOGIC: Patient is alert and oriented x3. Cranial nerves II through XII are grossly intact. Motor and sensory are also intact. Normal speech, volume and content. Symmetrical smile. MUSCULOSKELETAL: Normal extremities with adequate strength and full range of motion. LYMPHATICS: No significant lymphadenopathy is noted PSYCHIATRIC: Normal psychiatric evaluation. Limitations: no limitations Course Vital Signs 10/31/19 10/31/19 09:59 10:57 Temperature 98.3 F Pulse Rate 79 70 Respiratory 18 18 Rate Blood Pressure 180/85 148/69 O2 Sat by Pulse 97 97 Oximetry Medical Decision Making - Medical Decision Making CT of the abdomen and pelvis showed no acute abnormality. Patient was pain-free throughout his ED stay. - Lab Data Result diagrams: 10/31/19 10:43 10/31/19 10:43 Lab Results 10/31/19 10/31/19 10/31/19 Range/Units 10:43 10:43 10:43 WBC 6.5 (3.8-10.6) k/uL RBC 4.39 (4.30-5.90) m/uL Hgb 13.2 (13.0-17.5) gm/dL Hct 41.1 (39.0-53.0) % MCV 93.6 (80.0-100.0) fL MCH 30.0 (25.0-35.0) pg MCHC 32.0 (31.0-37.0) g/dL RDW 12.8 (11.5-15.5) % Plt Count 234 (150-450) k/uL Neutrophils % 67 % Lymphocytes % 21 % Monocytes % 6 % Eosinophils % 3 % Basophils % 1 % Neutrophils # 4.4 (1.3-7.7) k/uL Lymphocytes # 1.4 (1.0-4.8) k/uL Monocytes # 0.4 (0-1.0) k/uL Eosinophils # 0.2 (0-0.7) k/uL Basophils # 0.0 (0-0.2) k/uL Sodium 136 L (137-145) mmol/L Potassium 4.3 (3.5-5.1) mmol/L Chloride 103 (98-107) mmol/L Carbon Dioxide 26 (22-30) mmol/L Anion Gap 7 mmol/L BUN 14 (9-20) mg/dL Creatinine 0.70 (0.66-1.25) mg/dL Est GFR (CKD-EPI)AfAm >90 (>60 ml/min/1.73 sqM) Est GFR (CKD-EPI)NonAf >90 (>60 ml/min/1.73 sqM) Glucose 123 H (74-99) mg/dL Calcium 9.1 (8.4-10.2) mg/dL Total Bilirubin 0.5 (0.2-1.3) mg/dL AST 24 (17-59) U/L ALT 19 (4-49) U/L Alkaline Phosphatase 67 (38-126) U/L Total Protein 6.8 (6.3-8.2) g/dL Albumin 4.1 (3.5-5.0) g/dL Amylase 50 (30-110) U/L Lipase 69 (23-300) U/L Urine Color Yellow Urine Appearance Clear (Clear) Urine pH 6.5 (5.0-8.0) Ur Specific [place] 1.011 (1.001-1.035) Urine Protein Negative (Negative) Urine Glucose (UA) Negative (Negative) Urine Ketones Negative (Negative) Urine Blood Negative (Negative) Urine Nitrite Negative (Negative) Urine Bilirubin Negative (Negative) Urine Urobilinogen <2.0 (<2.0) mg/dL Ur Leukocyte Esterase Negative (Negative) Disposition Clinical Impression: Abdominal pain Disposition: HOME SELF-CARE Condition: Good Instructions (If sedation given, give patient instructions): Abdominal Pain (ED) Is patient prescribed a controlled substance at d/c from ED?: No Referrals: Jeff Medina DO [Primary Care Provider] - 1-2 days Time of Disposition: 12:20
[2019-10-31 11:06] LABS: Appearance,Urine Clear (Clear); Basophils % (A) 1 %; Bilirubin,Urine Negative (Negative); Blood,Urine Negative (Negative); Color,Urine Yellow; Eosinophils # (A) 0.2 k/uL (0-0.7); Eosinophils % (A) 3 %; Glucose,Urine (UA) Negative (Negative); HCT 41.1 % (39.0-53.0); HGB 13.2 gm/dL (13.0-17.5); Ketones,Urine Negative (Negative); Leukocyte Esterase,Urine Negative (Negative); Lymphocytes # (A) 1.4 k/uL (1.0-4.8); Lymphocytes % (A) 21 %; MCV 93.6 fL (80.0-100.0); Mean Platelet Volume 7.9; Monocytes # (A) 0.4 k/uL (0-1.0); Monocytes % (A) 6 %; Neutrophils # (A) 4.4 k/uL (1.3-7.7); Neutrophils % (A) 67 %; Nitrite,Urine Negative (Negative); PH, Urine 6.5 (5.0-8.0); Platelet Count 234 k/uL (150-450); Protein,Urine Negative (Negative); RBC 4.39 m/uL (4.30-5.90); RDW 12.8 % (11.5-15.5); Specific Gravity,Urine 1.011 (1.001-1.035); Urobilinogen,Urine <2.0 mg/dL (<2.0); WBC 6.5 k/uL (3.8-10.6)
[2019-10-31 11:25] LABS: ALT 19 U/L (4-49); AST 24 U/L (17-59); African American GFR (CKD) >90 (>60 ml/min/1.73 sqM); Albumin 4.1 g/dL (3.5-5.0); Alkaline Phosphatase 67 U/L (38-126); Amylase 50 U/L (30-110); Anion Gap 7 mmol/L; Blood Urea Nitrogen 14 mg/dL (9-20); Calcium 9.1 mg/dL (8.4-10.2); Carbon Dioxide 26 mmol/L (22-30); Chloride 103 mmol/L (98-107); Glucose 123 mg/dL (74-99); Non-African American GFR(CKD) >90 (>60 ml/min/1.73 sqM); Potassium 4.3 mmol/L (3.5-5.1); Sodium 136 mmol/L (137-145); Total Bilirubin 0.5 mg/dL (0.2-1.3); Total Protein 6.8 g/dL (6.3-8.2)
--- NOTE | 2019-10-31 11:55 | CT ---
EXAMINATION TYPE: CT abdomen pelvis wo con DATE OF EXAM: 10/31/2019 COMPARISON: 02/28/2018 CT HISTORY: Crohn's disease and abdominal pain. CT DLP: 754.8 mGycm Automated exposure control for dose reduction was used. TECHNIQUE: Helical acquisition of images was performed from the lung bases through the pelvis. FINDINGS: Lack of intravenous and oral contrast limit evaluation of both the hollow and solid viscera . LUNG BASES: Multifocal pleural parenchymal scarring of the lung bases. Severe coronary artery calcifi cation is partially visualized. LIVER/GB: Too small to accurately characterize 4 mm hypoattenuated hepatic lesion on image 46 of the inferior margin of the right hepatic lobe questionably subtly seen in 2018 therefore likely a small c yst. Gallbladder is unremarkable. PANCREAS: No significant abnormality is seen. SPLEEN: Small splenule adjacent to the cachil dehe spleen. ADRENALS: No significant abnormality is seen. KIDNEYS: Exophytic 2.7 cm left upper pole renal cyst. No hydronephrosis or nephrolithiasis of either kidney. FREE AIR: No free air is visualized ADENOPATHY: No greater than 1 cm short axis lymph node in the abdomen or pelvis. OSSEOUS STRUCTURES: Moderate to severe degenerative disc disease of the spine and are moderate to se dominik arthropathy of the hips. BOWEL: Bowel is suboptimally evaluated without contrast. There is high density in the appendix sugge sting an appendicolith without periappendiceal fat stranding or enlargement of the appendix. Terminal ileum is decompressed and demonstrates no surrounding fat stranding. No dilated large or small bowel seen. On coronal images there is submucosal fat deposition in the terminal ileum typically seen in c hronic enteritis on coronal image 33 and 34. OTHER: Moderate atherosclerosis of the abdominal aorta and its branches. IMPRESSION: 1. NO ACTIVE DISCRETE INFLAMMATORY PROCESS IN THE ABDOMEN NOR BOWEL OBSTRUCTION. APPENDICOLITH IS SEE N WITHIN THE APPENDIX HOWEVER THERE IS NO PERIAPPENDICEAL FAT STRANDING OR APPENDICEAL ENLARGEMENT. 2. SUBMUCOSAL DEPOSITION OF FAT IN THE TERMINAL ILEUM IS TYPICALLY SEEN IN CHRONIC ENTERITIS COMPATIB LE WITH THIS PATIENT'S KNOWN CROHN'S DISEASE.
[2019-10-31 12:48] VITALS: BP 152/67; PULSE 65; RESP 16
== END 2019-10-31 12:48 | disposition home or self-care (01) ==
LOC: EC 09:58
DX: R10.9 Unspecified abdominal pain (principal); I10 Essential (primary) hypertension; E78.5 Hyperlipidemia, unspecified; G51.0 Bell's palsy; I25.2 Old myocardial infarction; Z79.82 Long term (current) use of aspirin; Z79.02 Long term (current) use of antithrombotics/antiplatelets; Z79.899 Other long term (current) drug therapy; Z88.0 Allergy status to penicillin; Z88.7 Allergy status to serum and vaccine; Z95.5 Presence of coronary angioplasty implant and graft; Z87.891 Personal history of nicotine dependence
CPT/HCPCS: 36415; 74176; 80053; 81003; 82150; 83690; 85025; 99284

== ENCOUNTER 2019-12-02 06:27 | Emergency (ER) | payer MEDICARE ==
[2019-12-02 06:37] VITALS: RESP 18; TEMP 98.2
--- NOTE | 2019-12-02 06:57 | ED ---
General Adult HPI - General Chief complaint: Headache Stated complaint: Headache Time Seen by Provider: 12/02/19 06:40 Source: patient Mode of arrival: ambulatory Limitations: no limitations - History of Present Illness Initial comments: 79 yo male presenting today for cc of head pain. Patient states that he put in a new sink on Sunday and was doing some heavy lifting, morning he noticed in the morning that he would have occasional electrocuting brief episodes of pain in the back of neck radiating towards the posterior aspect of head. He states that he went to [employer] that day and tripped (he states unrelated to any symptoms or the head pain) and he states that he was able to cach self but noticed a slight increase in the neck/head "shocks". He states this is not a headache, denies n/v/vision changes, fevers, denies radiation down arms, or weakness of the UE b/l. Denies consistent pain. He states it occurs with movement of the neck. Denies falls direct trauma to the head. Pt states he felt this was due to his neck but was concerned and made him come to the ER. Patient has no additional complaints, patient has no current symptoms on arrival. He appears well in no distress. - Related Data Home Medications Medication Instructions Recorded Confirmed B Complex-Vit C-Vit E-Zinc [Z-Bec] 1 tab PO DAILY 10/14/14 10/23/18 Nitroglycerin Sl Tabs [Nitrostat] 0.4 mg SL Q5M PRN 10/14/14 10/23/18 Quinapril HCl [Accupril] 20 mg PO BID 10/14/14 10/23/18 Aspirin 81 mg PO HS 02/04/15 10/23/18 Clopidogrel [Plavix] 75 mg PO DAILY 02/04/15 10/23/18 sulfaSALAzine [Azulfidine] 1,000 mg PO TID 02/04/15 10/23/18 Cholecalciferol [Vitamin D3 (25 1,000 unit PO DAILY 09/27/15 10/23/18 Mcg = 1000 Iu)] Multivit-Mins/Iron/Folic/Lycop 1 tab PO DAILY 01/18/16 10/23/18 [Centrum Men's Tablet] Rosuvastatin [Crestor] 20 mg PO HS 01/18/16 10/23/18 Ubidecarenone [Co Q-10] 100 mg PO DAILY 01/01/18 10/23/18 Previous Rx's Medication Instructions Recorded Metoprolol Tartrate [Lopressor] 50 mg PO BID #60 tab 10/15/14 Allergies Allergy/AdvReac Type Severity Reaction Status Date / Time influenza virus vaccine, Allergy Unknown Verified 12/02/19 06:33 specific [influenza virus vacc,specific] Penicillins AdvReac Unknown Verified 12/02/19 06:33 Childhood Review of Systems ROS Statement: Those systems with pertinent positive or pertinent negative responses have been documented in the HPI. ROS Other: All systems not noted in ROS Statement are negative. 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 Last Myocardial Infarction Date:: 2005 History of Any Multi-Drug Resistant Organisms: None Reported Past Surgical History: Adenoidectomy, Heart Catheterization With Stent, Tonsillectomy Additional Past Surgical History / Comment(s): 2005 Cardiac cath with stenting of LAD, anal fistula surgery, cardiac stents x2 Past Anesthesia/Blood Transfusion Reactions: No Reported Reaction Additional Past Anesthesia/Blood Transfusion Reaction / Comment(s): Pt has never received blood. Date of Last Stent Placement:: 2015 Past Psychological History: Anxiety Smoking Status: Former smoker Past Alcohol Use History: Rare Past Drug Use History: None Reported - Past Family History Father Family Medical History: Coronary Artery Disease (CAD), Myocardial Infarction ([place]) Additional Family Medical History / Comment(s): Father of [place] Mother Family Medical History: Dementia Additional Family Medical History / Comment(s): Mother of alzhiemer's Brother(s) Family Medical History: Cancer, Myocardial Infarction ([place]) Additional Family Medical History / Comment(s): Brother of [place] at age 55yrs but had used cocaine and other drugs. Sister(s) Family Medical History: Cancer Son(s) Family Medical History: No Reported History General Exam - General Exam Comments Initial Comments: General: The patient is awake and alert, in no distress, and does not appear acutely ill. Eye: +3 mm pupils are equal, round and reactive to light, extra-ocular movements are intact. No nystagmus. There is normal conjunctiva bilaterally. No signs of icterus. Ears, nose, mouth and throat: There are moist mucous membranes and no oral lesions. Neck: The neck is supple, there is no tenderness or JVD. Some paravertebral tenderness of the cervical spine. Cardiovascular: There is a regular rate and rhythm. No murmur, rub or gallop is appreciated. Respiratory: Lungs are clear to auscultation, respirations are non-labored, breath sounds are equal. No wheezes, stridor, rales, or rhonchi. Musculoskeletal: + right sided spurlings. Normal ROM of the cervical spine, some tenderness with rotation to the left Strength 5/5 of the UE b/l. Sensation intact of the UE b/l. Radial pulses equal bilaterally 2+. Neurological: A&O x 3. CN II-XII intact, memory intact to immediately, intermediate and care home recall. Able to follow simple verbal. Able to name a common object (pen). High quality, labial (pa) and lingual (la) speech. Low quality posterior pharynx/larynx (ga) voice sounds. Able to express general knowledge. No hemineglect or inattention noted. Finger agnosia (-) and spatially oriented. Light touch present over the face, chest, abdomen, back, UE bilaterally, and LE bilaterally.No visible bulk atrophy, hypertrophy, fasciculations, or myoclonus of the UE or LE b/l. Full PROM in UE and LE b/l. Bilateral muscle strength 5/5 for the following muscles: deltoid, biceps, triceps, brachioradialis, wrist extensors/flexor, hip flexor, hip abductors/addu ctors, hamstrings, quadriceps, feet dorsiflexors/plantar flexors. Finger to nose, finger to the examiners finger, and heel to [place] coordinated and accurate b/l. Coordinated and even demonstration of hand flip, finger to thumb, and toe tap b/l. Gait is coordinated and even in stride with walk. (-) pronator drift. No nuchal rigidity. Skin: Skin is warm and dry and no rashes or lesions are noted. Psychiatric: Cooperative, appropriate mood & affect, normal judgment. Limitations: no limitations Course Vital Signs 12/02/19 12/02/19 12/02/19 06:33 06:49 08:42 Temperature 98.2 F Pulse Rate 73 68 63 Respiratory 18 18 18 Rate Blood Pressure 175/94 155/79 142/69 O2 Sat by Pulse 97 97 98 Oximetry Medical Decision Making - Medical Decision Making 79-year-old male no current symptoms currently presenting for shock like sensation with movement of his neck, posterior. + spurling. began after lifting heavy sink. Patient CT (-) for acute process, pt clinically does not appears to have proptosis, but this is noted on today CT as well as previous. No additional symptoms. Patient appears well without focal neurological deficits. Will be dsicharged with symptomatic treatment instruction PCP f/u. recommended neurology f/u. Patient discharged appearing well after discussing case with Dr. Herrera who is agreeable to care plan and discharge today. Disposition Clinical Impression: Head pain, Neck pain Disposition: HOME SELF-CARE Condition: Good Instructions (If sedation given, give patient instructions): Neck Pain (ED) Additional Instructions: Please use medication as discussed. Please follow-up with family doctor in the next 2 days. Please return to emergency room if the symptoms increase or worsen or for any other concerns. Is patient prescribed a controlled substance at d/c from ED?: No Referrals: Jeff Medina DO [Primary Care Provider] - 1-2 days Time of Disposition: 08:36
--- NOTE | 2019-12-02 08:32 | CT ---
EXAM: CT Head Without Intravenous Contrast CLINICAL HISTORY: neck/head pain. Patient had done some heavy lifting sunday. Sunday he felt electrocuting in the back of the head and neck. TECHNIQUE: Axial computed tomography images of the head/brain without intravenous contrast. CTDI is 45.2 mGy and DLP is 1010 mGy-cm. This CT exam was performed using one or more of the following dose reduction techniques: automated exposure control, adjustment of the mA and/or kV according to patient size, and/or use of iterative reconstruction technique. COMPARISON: 08/26/2017. FINDINGS: Brain: Unchanged. No hemorrhage. No significant white matter disease. No edema. Ventricles: Unremarkable. No ventriculomegaly. Bones/joints: Unremarkable. No acute fracture. Soft tissues: Unremarkable. Sinuses: A 2.4 cm mucous retention cyst versus polyp is again seen within the left maxillary sinus. Mastoid air cells: Unremarkable as visualized. No mastoid effusion. Orbits: Bilateral proptosis. IMPRESSION: 1. No CT evidence of acute intracranial pathology without significant interval change. 2. Bilateral proptosis. Correlate clinically. EXAM: CT Cervical Spine Without Intravenous Contrast CLINICAL HISTORY: neck/head pain. Patient had done some heavy lifting sunday. Sunday he felt electrocuting in the back of the head and neck. TECHNIQUE: Axial computed tomography images of the cervical spine without intravenous contrast. CTDI is 11.9 mGy and DLP is 348.5 mGy-cm. This CT exam was performed using one or more of the following dose reduction techniques: automated exposure control, adjustment of the mA and/or kV according to patient size, and/or use of iterative reconstruction technique. COMPARISON: No relevant prior studies available. FINDINGS: Vertebrae: No evidence of acute fracture or traumatic malalignment. Cervical spondylosis with varying degrees of central canal and foramina stenoses, most notable at C5-C6 and C6-C7. Discs/spinal canal/neural foramina: See above. Soft tissues: Unremarkable. Lung apices: Biapical scarring with subpleural blebs. IMPRESSION: 1. No evidence of acute fracture or traumatic malalignment. 2. Cervical spondylosis with varying degrees of central canal and foramina stenoses, most notable at C5-C6 and C6-C7. Given the history, MRI of the cervical spine is recommended for further evaluation.
[2019-12-02 08:43] VITALS: BP 142/69; PULSE 63
== END 2019-12-02 08:47 | disposition home or self-care (01) ==
LOC: EC 06:27
DX: R51 Headache (principal); M54.2 Cervicalgia; E78.5 Hyperlipidemia, unspecified; I10 Essential (primary) hypertension; I25.2 Old myocardial infarction; Z95.5 Presence of coronary angioplasty implant and graft; Z87.891 Personal history of nicotine dependence; Z79.82 Long term (current) use of aspirin; Z79.02 Long term (current) use of antithrombotics/antiplatelets; Z79.899 Other long term (current) drug therapy; Z88.7 Allergy status to serum and vaccine; Z88.0 Allergy status to penicillin
CPT/HCPCS: 70450; 72125; 99284

== ENCOUNTER 2020-07-15 14:15 | Observation (INO) | payer MEDICARE ==
[2020-07-15] MEDS ORDERED: NITROGLYCERIN OINT 1 INCH/GM PACKET TOPICAL STA (14:34)
[2020-07-15] MEDS ORDERED: ASPIRIN 81 MG PO STA (14:34)
--- NOTE | 2020-07-15 14:43 | ED ---
General Adult HPI - General Chief complaint: Dizziness Stated complaint: Sweating/Hypotension Time Seen by Provider: 07/15/20 14:15 Source: patient, RN notes reviewed, old records reviewed Mode of arrival: wheelchair Limitations: no limitations - History of Present Illness Initial comments: This is an 80-year-old male with a past medical history significant for coronary artery disease with multiple stents, patient also has high blood pressure. Patient comes in today because she states after he was done walking on his treadmill which she does 5 days a week he states about 10 minutes after he had a diaphoretic episode that last between 5 and 10 minutes which was pretty significant. Patient states while he was having he did take his blood pressure was elevated and after it resolved he continued to have high blood pressure and that significantly concerned patient denies any chest pain or palpitations patient denies any difficulty breathing shortness of breath per patient states this reminded him of the episode he had when he did have his heart attack however there was some slight chest pain back then and there was none today. Patient denies any swelling to the legs or calf tenderness. Patient states while on the treadmill he used the same settings as he normally does. Patient currently feels at his baseline. - Related Data Home Medications Medication Instructions Recorded Confirmed B Complex-Vit C-Vit E-Zinc [Z-Bec] 1 tab PO DAILY 10/14/14 10/23/18 Nitroglycerin Sl Tabs [Nitrostat] 0.4 mg SL Q5M PRN 10/14/14 10/23/18 Quinapril HCl [Accupril] 20 mg PO BID 10/14/14 10/23/18 Aspirin 81 mg PO HS 02/04/15 10/23/18 Clopidogrel [Plavix] 75 mg PO DAILY 02/04/15 10/23/18 sulfaSALAzine [Azulfidine] 1,000 mg PO TID 02/04/15 10/23/18 Cholecalciferol [Vitamin D3 (25 1,000 unit PO DAILY 09/27/15 10/23/18 Mcg = 1000 Iu)] Multivit-Mins/Iron/Folic/Lycop 1 tab PO DAILY 01/18/16 10/23/18 [Centrum Men's Tablet] Rosuvastatin [Crestor] 20 mg PO HS 01/18/16 10/23/18 Ubidecarenone [Co Q-10] 100 mg PO DAILY 01/01/18 10/23/18 Previous Rx's Medication Instructions Recorded Metoprolol Tartrate [Lopressor] 50 mg PO BID #60 tab 10/15/14 Allergies Allergy/AdvReac Type Severity Reaction Status Date / Time influenza virus vaccine, Allergy Unknown Verified 07/15/20 14:23 specific [influenza virus vacc,specific] Penicillins AdvReac Unknown Verified 07/15/20 14:23 Childhood Review of Systems ROS Statement: Those systems with pertinent positive or pertinent negative responses have been documented in the HPI. ROS Other: All systems not noted in ROS Statement are negative. 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 Last Myocardial Infarction Date:: 2005 History of Any Multi-Drug Resistant Organisms: None Reported Past Surgical History: Adenoidectomy, Heart Catheterization With Stent, Tonsillectomy Additional Past Surgical History / Comment(s): 2006 Cardiac cath with stenting of LAD, anal fistula surgery, cardiac stents x2 Past Anesthesia/Blood Transfusion Reactions: No Reported Reaction Additional Past Anesthesia/Blood Transfusion Reaction / Comment(s): Pt has never received blood. Date of Last Stent Placement:: 2015 Past Psychological History: Anxiety Smoking Status: Never smoker Past Alcohol Use History: Rare Past Drug Use History: None Reported - Past Family History Father Family Medical History: Coronary Artery Disease (CAD), Myocardial Infarction ([place]) Additional Family Medical History / Comment(s): Father of [place] Mother Family Medical History: Dementia Additional Family Medical History / Comment(s): Mother of alzhiemer's Brother(s) Family Medical History: Cancer, Myocardial Infarction ([place]) Additional Family Medical History / Comment(s): Brother of [place] at age 55yrs but had used cocaine and other drugs. Sister(s) Family Medical History: Cancer Son(s) Family Medical History: No Reported History General Exam - General Exam Comments Initial Comments: GENERAL: Patient is well-developed and well-nourished. Patient is nontoxic and well- hydrated and is in no acute distress. ENT: Neck is soft and supple. No significant lymphadenopathy is noted. Oropharynx is clear. Moist mucous membranes. Neck has full range of motion without eliciting any pain. EYES: The sclera were anicteric and conjunctiva were pink and moist. Extraocular movements were intact and pupils were equal round and reactive to light. Eyelids were unremarkable. PULMONARY: Unlabored respirations. Good breath sounds bilaterally. No audible rales rhonchi or wheezing was noted. CARDIOVASCULAR: There is a regular rate and rhythm without any murmurs gallops or rubs. ABDOMEN: Soft and nontender with normal bowel sounds. SKIN: Skin is clear with no lesions or rashes and otherwise unremarkable. NEUROLOGIC: Patient is alert and oriented x3. Cranial nerves II through XII are grossly intact. Motor and sensory are also intact. Normal speech, volume and content. Symmetrical smile. MUSCULOSKELETAL: Normal extremities with adequate strength and full range of motion. No lower ex tremity swelling or edema. No calf tenderness. LYMPHATICS: No significant lymphadenopathy is noted PSYCHIATRIC: Normal psychiatric evaluation. Limitations: no limitations Course Vital Signs 07/15/20 07/15/20 07/15/20 14:17 14:30 15:18 Temperature 97.8 F 98.7 F Pulse Rate 70 75 69 Respiratory 18 18 16 Rate Blood Pressure 165/73 158/67 O2 Sat by Pulse 98 96 Oximetry 07/15/20 17:00 Temperature Pulse Rate 57 L Respiratory 16 Rate Blood Pressure 139/80 O2 Sat by Pulse 96 Oximetry Medical Decision Making - Medical Decision Making EKG shows a normal sinus rhythm at 64 bpm DE interval is 194 QRS is 154 QT interval 446 QTC is 460 per patient's EKG shows no ST segment elevation or depression Chest x-ray shows no acute abnormalities. I spoke with Dr. Ford he agreed to admit the patient admitted the patient wrote admitting orders. - Lab Data Result diagrams: 07/15/20 14:58 07/15/20 14:58 Lab Results 07/15/20 07/15/20 07/15/20 Range/Units 14:58 14:58 14:58 WBC 12.8 H (3.8-10.6) k/uL RBC 5.01 (4.30-5.90) m/uL Hgb 14.7 (13.0-17.5) gm/dL Hct 43.1 (39.0-53.0) % MCV 86.1 (80.0-100.0) fL MCH 29.4 (25.0-35.0) pg MCHC 34.2 (31.0-37.0) g/dL RDW 12.8 (11.5-15.5) % Plt Count 236 (150-450) k/uL MPV 7.7 Neutrophils % 83 % Lymphocytes % 10 % Monocytes % 4 % Eosinophils % 1 % Basophils % 1 % Neutrophils # 10.6 H (1.3-7.7) k/uL Lymphocytes # 1.3 (1.0-4.8) k/uL Monocytes # 0.6 (0-1.0) k/uL Eosinophils # 0.2 (0-0.7) k/uL Basophils # 0.1 (0-0.2) k/uL PT 10.1 (9.0-12.0) sec INR 0.9 (<1.2) APTT 22.5 (22.0-30.0) sec Sodium 137 (137-145) mmol/L Potassium 4.2 (3.5-5.1) mmol/L Chloride 102 (98-107) mmol/L Carbon Dioxide 29 (22-30) mmol/L Anion Gap 6 mmol/L BUN 21 H (9-20) mg/dL Creatinine 0.92 (0.66-1.25) mg/dL Est GFR (CKD-EPI)AfAm >90 (>60 ml/min/1.73 sqM) Est GFR (CKD-EPI)NonAf 78 (>60 ml/min/1.73 sqM) Glucose 153 H (74-99) mg/dL Calcium 9.5 (8.4-10.2) mg/dL Magnesium 2.2 (1.6-2.3) mg/dL Total Bilirubin 0.6 (0.2-1.3) mg/dL AST 28 (17-59) U/L ALT 21 (4-49) U/L Alkaline Phosphatase 78 (38-126) U/L Troponin I (0.000-0.034) ng/mL Total Protein 7.4 (6.3-8.2) g/dL Albumin 4.3 (3.5-5.0) g/dL 07/15/20 Range/Units 14:58 WBC (3.8-10.6) k/uL RBC (4.30-5.90) m/uL Hgb (13.0-17.5) gm/dL Hct (39.0-53.0) % MCV (80.0-100.0) fL MCH (25.0-35.0) pg MCHC (31.0-37.0) g/dL RDW (11.5-15.5) % Plt Count (150-450) k/uL MPV Neutrophils % % Lymphocytes % % Monocytes % % Eosinophils % % Basophils % % Neutrophils # (1.3-7.7) k/uL Lymphocytes # (1.0-4.8) k/uL Monocytes # (0-1.0) k/uL Eosinophils # (0-0.7) k/uL Basophils # (0-0.2) k/uL PT (9.0-12.0) sec INR (<1.2) APTT (22.0-30.0) sec Sodium (137-145) mmol/L Potassium (3.5-5.1) mmol/L Chloride (98-107) mmol/L Carbon Dioxide (22-30) mmol/L Anion Gap mmol/L BUN (9-20) mg/dL Creatinine (0.66-1.25) mg/dL Est GFR (CKD-EPI)AfAm (>60 ml/min/1.73 sqM) Est GFR (CKD-EPI)NonAf (>60 ml/min/1.73 sqM) Glucose (74-99) mg/dL Calcium (8.4-10.2) mg/dL Magnesium (1.6-2.3) mg/dL Total Bilirubin (0.2-1.3) mg/dL AST (17-59) U/L ALT (4-49) U/L Alkaline Phosphatase (38-126) U/L Troponin I <0.012 (0.000-0.034) ng/mL Total Protein (6.3-8.2) g/dL Albumin (3.5-5.0) g/dL Disposition Clinical Impression: Atypical angina Disposition: ADMITTED IP TO THIS [facility] Referrals: Jeff Medina DO [Primary Care Provider] - 1-2 days Time of Disposition: 17:19
[2020-07-15 15:05] LABS: Basophils # (A) 0.1 k/uL (0-0.2); Basophils % (A) 1 %; Eosinophils # (A) 0.2 k/uL (0-0.7); Eosinophils % (A) 1 %; HCT 43.1 % (39.0-53.0); HGB 14.7 gm/dL (13.0-17.5); Lymphocytes # (A) 1.3 k/uL (1.0-4.8); Lymphocytes % (A) 10 %; MCH 29.4 pg (25.0-35.0); MCHC 34.2 g/dL (31.0-37.0); MCV 86.1 fL (80.0-100.0); Mean Platelet Volume 7.7; Monocytes # (A) 0.6 k/uL (0-1.0); Monocytes % (A) 4 %; Neutrophils # (A) 10.6 k/uL (1.3-7.7); Neutrophils % (A) 83 %; Platelet Count 236 k/uL (150-450); RBC 5.01 m/uL (4.30-5.90); RDW 12.8 % (11.5-15.5); WBC 12.8 k/uL (3.8-10.6)
[2020-07-15 15:13] LABS: INR 0.9 (<1.2); Partial Thromboplastin Time 22.5 sec (22.0-30.0); Prothrombin Time 10.1 sec (9.0-12.0)
[2020-07-15 15:14] LABS: ALT 21 U/L (4-49); AST 28 U/L (17-59); African American GFR (CKD) >90 (>60 ml/min/1.73 sqM); Albumin 4.3 g/dL (3.5-5.0); Alkaline Phosphatase 78 U/L (38-126); Anion Gap 6 mmol/L; Blood Urea Nitrogen 21 mg/dL (9-20); Calcium 9.5 mg/dL (8.4-10.2); Carbon Dioxide 29 mmol/L (22-30); Chloride 102 mmol/L (98-107); Glucose 153 mg/dL (74-99); Magnesium 2.2 mg/dL (1.6-2.3); Non-African American GFR(CKD) 78 (>60 ml/min/1.73 sqM); Potassium 4.2 mmol/L (3.5-5.1); Sodium 137 mmol/L (137-145); Total Bilirubin 0.6 mg/dL (0.2-1.3); Total Protein 7.4 g/dL (6.3-8.2)
--- NOTE | 2020-07-15 15:27 | XR ---
EXAMINATION TYPE: XR chest 2V DATE OF EXAM: 07/15/2020 COMPARISON: 10/23/2018 HISTORY: 80-year-old male with chest pain TECHNIQUE: PA and lateral views FINDINGS: The cardiomediastinal silhouette, aorta, and pulmonary vasculature are within normal limits. Mild hyp erinflation. Some strandy atelectasis in the lower lungs. Otherwise, lungs and pleural spaces are anastasia ar. IMPRESSION: Correlate for underlying COPD. No acute cardiopulmonary process.
[2020-07-15] MEDS ORDERED: NITROGLYCERIN SL TABS 0.4 MG TAB SUBLINGUAL PRN ×2 (17:19→20:51)
[2020-07-15] MEDS: NITROGLYCERIN OINT 1 INCH/GM PACKET TOPICAL SCH (18:05)
--- NOTE | 2020-07-15 21:06 | P.HPIM ---
History of Present Illness H&P Date: 07/15/20 Chief Complaint: Chest pain and angina, CAD, hypertension, hyperlipidemia 80-year-old male one of Dr. Medina patient with multiple medical problem known to have history of coronary artery disease post multiple stent placement in the past, history of hypertension and hyperlipidemia who presented to [facility] department today 07/15/2020 with complain of significant chest pain and discomfort with exertion according to him after he is done walking on his treadmill for about 5 minutes start become diaphoretic and had an episode of chest pain and discomfort between his shoulder blade lasted for about 10 minutes his blood pressure was elevated the time left chest pain resolved continue to have significant elevated blood pressure reading in the time. Patient denies any shortness of breath no cough or wheezes no nausea or vomiting or stomach pain or major palpitation. With the recurrent episode of chest pain with exertion patient was reminded of his coronary artery disease and the presentation from last time he was in for his stent. Ended up coming to the emergency department at [facility] with troponin was negative Sunday elevated blood sugar of the time with WBC of 12.8. 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 Review of Systems CONSTITUTIONAL: Well-developed no acute respiratory distress. EYES: No icterus sclerae, no conjunctivitis. EARS, NOSE, MOUTH, THROAT, and FACE: No sore throat, lymphadenopathy, carotid bruits or deformity. RESPIRATORY: No SOB cough or wheezes, slight chest pain and discomfort mostly cardiac CARDIOVASCULAR: Positive angina with mild PND and orthopnea. GASTROINTESTINAL: No Abd pain, Nausea or vomiting, no Diarrhea or constipation, No GI Bleed, no distention or masses. GENITOURINARY: Negative for Hematuria or UTI, no kidney stones. INTEGUMENT/BREAST: Negative for any muscular injury with mild osteoarthritis.. HEMATOLOGIC/LYMPHATIC: Negative for bleed or purpura. MUSCULOSKELTAL: Negative for Myalgia or arthralgia. NEURLOGICAL: No LOC, Sz or syncope, blurred vision dizziness or abnormality.. BEHAVIORAL/PSYCH: Negative. ENDOCRINE: Negative. 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 Last Myocardial Infarction Date:: 2005 History of Any Multi-Drug Resistant Organisms: None Reported Past Surgical History: Adenoidectomy, Heart Catheterization With Stent, Tonsillectomy Additional Past Surgical History / Comment(s): 2005 Cardiac cath with stenting o f LAD, anal fistula surgery, cardiac stents x2 Past Anesthesia/Blood Transfusion Reactions: No Reported Reaction Additional Past Anesthesia/Blood Transfusion Reaction / Comment(s): Pt has never received blood. Date of Last Stent Placement:: 2015 Past Psychological History: Anxiety Smoking Status: Never smoker Past Alcohol Use History: Rare Past Drug Use History: None Reported - Past Family History Father Family Medical History: Coronary Artery Disease (CAD), Myocardial Infarction ([place]) Additional Family Medical History / Comment(s): Father of [place] Mother Family Medical History: Dementia Additional Family Medical History / Comment(s): Mother of alzhiemer's Brother(s) Family Medical History: Cancer, Myocardial Infarction ([place]) Additional Family Medical History / Comment(s): Brother of [place] at age 55yrs but had used cocaine and other drugs. Sister(s) Family Medical History: Cancer Son(s) Family Medical History: No Reported History Medications and Allergies Home Medications Medication Instructions Recorded Confirmed Type Nitroglycerin Sl Tabs [Nitrostat] 0.4 mg SL Q5M PRN 10/14/14 07/15/20 History Quinapril HCl [Accupril] 20 mg PO BID 10/14/14 07/15/20 History Metoprolol Tartrate [Lopressor] 50 mg PO BID #60 tab 10/15/14 07/15/20 Rx Aspirin 81 mg PO HS 02/04/15 07/15/20 History Clopidogrel [Plavix] 75 mg PO DAILY 02/04/15 07/15/20 History Cholecalciferol [Vitamin D3 (25 1,000 unit PO DAILY 09/27/15 07/15/20 History Mcg = 1000 Iu)] Multivit-Mins/Iron/Folic/Lycop 1 tab PO DAILY 01/18/16 07/15/20 History [Centrum Men's Tablet] Rosuvastatin [Crestor] 20 mg PO Q48H 01/18/16 07/15/20 History Ubidecarenone [Co Q-10] 100 mg PO DAILY 01/01/18 07/15/20 History Vitamin B Complex 1 tab PO DAILY 07/15/20 07/15/20 History hydroCHLOROthiazide [Hydrodiuril] 25 mg PO DAILY 07/15/20 07/15/20 History Allergies Allergy/AdvReac Type Severity Reaction Status Date / Time influenza virus vaccine, Allergy Unknown Verified 07/15/20 17:27 specific [influenza virus vacc,specific] Penicillins AdvReac Unknown Verified 07/15/20 17:27 Childhood Physical Exam Vitals: Vital Signs Temp Pulse Pulse Resp BP BP Pulse Ox 07/15/20 18:45 98.4 F 62 68 18 123/65 185/76 98 07/15/20 17:00 57 L 16 139/80 96 07/15/20 15:18 69 16 158/67 96 07/15/20 14:30 98.7 F 75 18 07/15/20 14:17 97.8 F 70 18 165/73 98 Intake and Output 07/15/20 07/15/20 07/15/20 06:59 14:59 22:59 Other: Weight 87.09 kg General Appearance: Alert, cooperative, no distress, appears stated age. Neck HEENT: Supple, no lymphadenopathy, no thyroid enlargement, no carotid bruits. Lungs: Clear to auscultation without crackles or wheezes no rhonchi, no deformity. Chest Wall: Chest wall normal expansion with deep inspiration no tenderness and no deformity was found on exam, no costochondral pain or discomfort. Heart: Regular rate and rhythm, S1, S2 positive systolic murmur, Back: Symmetric, no curvature, ROM normal, no CVA tenderness. Abdomen: Soft, non-tender, bowel sounds active all four quadrants, no masses, no organomegaly. Extremities: Extremities normal, atraumatic, no cyanosis or edema. Pulses: 2+ and symmetric. Skin: Skin color, texture, tugor normal, no rashes or lesions. Neurologic: Alert oriented x3 cranial nerves II through XII intact, no motor deficit, no abnormal balance or gait. Results CBC & Chem 7: 07/15/20 14:58 07/15/20 14:58 Labs: Abnormal Lab Results - Last 24 Hours (Table) 07/15/20 07/15/20 Range/Units 14:58 14:58 WBC 12.8 H (3.8-10.6) k/uL Neutrophils # 10.6 H (1.3-7.7) k/uL BUN 21 H (9-20) mg/dL Glucose 153 H (74-99) mg/dL Thrombosis Risk Factor Assmnt - DVT/VTE Prophylaxis DVT/VTE Prophylaxis: Pharmacologic Prophylaxis ordered, Mechanical Prophylaxis ordered Assessment and Plan Assessment: 1 acute chest pain anginal type with worsening symptom with exertion, patient be hospitalized was be seeing cardiology troponin 3 be done might order an echocardiogram depending on the result next few hours might determine whether patient need to go to the director of cath lab or to do stress test conservative management. 2 history of CAD post coronary artery angiogram and stent of total time, continue medical management is seeing cardiology. 3 hypertension: Remain on metoprolol and quinapril. 4 hyperlipidemia: Remain on Crestor 20 mg every 48 hours. 5 chronic edema has been on hydrochlorothiazide 25 mg daily. 6 GI prophylaxis: Patient be on Pepcid 20 mg daily. 7 DVT prophylaxis: Patient will be on heparin. CODE STATUS: Full code. Admit patient to the inpatient service for more than 2 night stay.
[2020-07-15] MEDS: lisinopriL 20 MG TAB PO SCH (21:54)
[2020-07-15] MEDS: METOPROLOL TARTRATE 50 MG TAB PO SCH (21:54)
[2020-07-16] MEDS: NITROGLYCERIN OINT 1 INCH/GM PACKET TOPICAL SCH ×2 (01:26→06:38)
[2020-07-16 03:39] LABS: Cholesterol 177 mg/dL (<200); HDL Cholesterol 55 mg/dL (40-60); LDL Cholesterol,Calculated 89 mg/dL (0-99); Triglycerides 164 mg/dL (<150)
[2020-07-16 08:49] VITALS: RESP 17
[2020-07-16] MEDS ORDERED: MULTIVITAMINS, THERA 1 EACH TAB PO SCH (09:00)
[2020-07-16] MEDS ORDERED: ATORVASTATIN 40 MG TAB PO SCH ×2 (09:00→21:00)
[2020-07-16] MEDS ORDERED: ASPIRIN 325 MG TAB PO SCH (09:00)
[2020-07-16] MEDS ORDERED: CLOPIDOGREL 75 MG TAB PO SCH (09:00)
[2020-07-16] MEDS ORDERED: CHOLECALCIFEROL 25 MCG (1000 IU) TABLET PO SCH (09:00)
[2020-07-16] MEDS ORDERED: hydroCHLOROthiazide 25 MG TAB PO SCH (09:00)
[2020-07-16] MEDS ORDERED: NON FORMULARY DRUG (Ubidecarenone [Co Q-10] 100 MG Capsule) PO SCH (09:00)
[2020-07-16] MEDS ORDERED: NON FORMULARY DRUG (Vitamin B Complex [Vitamin B Complex] 1 EACH Capsule) PO SCH (09:00)
[2020-07-16] MEDS: lisinopriL 20 MG TAB PO SCH (09:10)
--- NOTE | 2020-07-16 11:00 | ECHOF ---
Referral Reason:LV function MEASUREMENTS -------- HEIGHT: 177.8 cm WEIGHT: 86.2 kg BP: 134/70 IVSd: 1.4 cm (0.6 - 1.1) LVIDd: 4.1 cm (3.9 - 5.3) LVPWd: 1.2 cm (0.6 - 1.1) IVSs: 1.8 cm LVIDs: 1.9 cm LVPWs: 1.6 cm LAESV Index (A-L): 31.83 ml/m Ao Diam: 3.2 cm (2.0 - 3.7) AV Cusp: 1.5 cm (1.5 - 2.6) MV EXCURSION: 19.089 mm (> 18.000) MV EF SLOPE: 59 mm/s (70 - 150) EPSS: 0.6 cm MV E Elieser: 0.54 m/s MV DecT: 314 ms MV A Elieser: 0.85 m/s MV E/A Ratio: 0.64 RAP: 5.00 mmHg RVSP: 21.52 mmHg FINDINGS -------- Sinus rhythm. This was a technically adequate study. The left ventricular size is normal. There is moderate concentric left ventricular hypertrophy. O verall left ventricular systolic function is normal with, an EF between 55 - 60 %. The diastolic fi lling pattern is normal for the age of the patient 10.06. The right ventricle is normal in size. LA is midly dilated 29-33ml/m2. The right atrial size is normal. Interatrial and interventricular septum intact. There is mild aortic valve sclerosis. There is no evidence of aortic regurgitation. There is no e vidence of aortic stenosis. Mild mitral annular calcification present. Mild mitral regurgitation is present. The tricuspid valve appears structurally normal. Mild tricuspid regurgitation present. There is n o evidence of pulmonary hypertension. The right ventricular systolic pressure, as measured by Doppl er, is 21.52mmHg. There is no pulmonic regurgitation present. The aortic root size is normal. IVC Not well visulized. There is no pericardial effusion. CONCLUSIONS -------- 1. There is moderate concentric left ventricular hypertrophy. 2. Overall left ventricular systolic function is normal with, an EF between 55 - 60 %. 3. LA is midly dilated 29-33ml/m2. 4. There is mild aortic valve sclerosis. 5. Mild mitral regurgitation is present. 6. Mild tricuspid regurgitation present. EDUCATION RESEARCH ANALYST: Kim Jacobs RDCS
[2020-07-16] MEDS: METOPROLOL TARTRATE 50 MG TAB PO SCH (11:34)
--- NOTE | 2020-07-16 12:29 | P.CRDCN ---
History of Present Illness Consult date: 07/16/20 History of present illness: CHIEF COMPLAINT: Atypical angina HISTORY OF PRESENT ILLNESS: This is a 80-year-old male with a past medical history significant for hypertension, hyperlipidemia, coronary artery disease with previous stent placed to the LAD in 2005 and 2014. Patient follows in the office with Dr. Kirby. We have been asked to see the patient in consultation for atypical angina. Patient states he was walking on his treadmill yesterday for about 40 minutes at a pace of 2 miles per hour. He states he was not having any chest pain or shortness of breath during that time. After he was done walking he states he was was sitting down at the computer reading an email him and he went into the bathroom and noticed that he was diaphoretic. He reports taking his blood pressure and noticed it to be higher than normal. DIAGNOSTICS: EKG reveals sinus mechanism with heart rate in the 60s Chest xray correlate for underlying COPD. No acute process. Laboratory data: WBC 12.8. Hemoglobin 14.7. Platelet count 236. Sodium 137. Potassium 4.2. BUN 21. Creatinine 0.92. Magnesium 2.2. Troponin negative 3. Current home cardiac medications include hydrochlorothiazide 25 mg daily, Crestor 20 mg every 48 hours, quinapril 20 mg twice a day, metoprolol 50 g twice a day, Plavix 75 mg daily, and aspirin 81 mg daily REVIEW OF SYSTEMS: At the time of my exam: CONSTITUTIONAL: Denies fever or chills. HEENT: Denies blurred vision, vision changes, or eye pain. Denies hemoptysis CARDIOVASCULAR: Denies chest pain, orthopnea, PND or palpitations RESPIRATORY: No shortness of breath. GASTROINTESTINAL: Denies abdominal pain. Denies nausea or vomiting. HEMATOLOGIC: Denies bleeding disorders. GENITOURINARY: Denies any blood in urine. SKIN: Denies pruitis. Denies rash. PHYSICAL EXAM: VITAL SIGNS: Reviewed. GENERAL: Well-developed in no acute distress. HEENT: Head is normocephalic. Pupils are equal, round. Sclerae anicteric. Mucous membranes of the mouth are moist. Neck supple. No JVD or thyromegaly LUNGS: Respirations even and unlabored. Lungs essentially clear to auscultation bilaterally. HEART: Regular rate and rhythm. S1 and S2 heard. ABDOMEN: Soft. Nondistended. Nontender. EXTREMITIES: Normal range of motion. No clubbing or cyanosis. Peripheral pulses intact. No lower extremity edema NEUROLOGIC: Awake and alert. Oriented x 3. ASSESSMENT: Diaphoresis, patient denied any chest pain Coronary artery disease with previous PCI to LAD in 2015 2014 Hypertension Hyperlipidemia PLAN: An acute coronary event has been ruled out Resume home cardiac medications Obtain 2-D echo to assess cardiac structure and function Patient to undergo stress echo today to assess for reversible ischemia If echocardiogram does not reveal any significant abnormalities and stress test is negative, the patient may be discharged home today and follow up outpatient with Dr. Kirby Nurse practitioner note has been reviewed by physician. Signing provider agrees with the documented findings, assessment, and plan of care. 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 Last Myocardial Infarction Date:: 2005 History of Any Multi-Drug Resistant Organisms: None Reported Past Surgical History: Adenoidectomy, Heart Catheterization With Stent, Tonsillectomy Additional Past Surgical History / Comment(s): 2006 Cardiac cath with stenting of LAD, anal fistula surgery, cardiac stents x2 Past Anesthesia/Blood Transfusion Reactions: No Reported Reaction Additional Past Anesthesia/Blood Transfusion Reaction / Comment(s): Pt has never received blood. Date of Last Stent Placement:: 2015 Past Psychological History: Anxiety Smoking Status: Never smoker Past Alcohol Use History: Rare Past Drug Use History: None Reported - Past Family History Father Family Medical History: Coronary Artery Disease (CAD), Myocardial Infarction ([place]) Additional Family Medical History / Comment(s): Father of [place] Mother Family Medical History: Dementia Additional Family Medical History / Comment(s): Mother of alzhiemer's Brother(s) Family Medical History: Cancer, Myocardial Infarction ([place]) Additional Family Medical History / Comment(s): Brother of [place] at age 55yrs but had used cocaine and other drugs. Sister(s) Family Medical History: Cancer Son(s) Family Medical History: No Reported History Medications and Allergies Home Medications Medication Instructions Recorded Confirmed Type Nitroglycerin Sl Tabs [Nitrostat] 0.4 mg SL Q5M PRN 10/14/14 07/15/20 History Quinapril HCl [Accupril] 20 mg PO BID 10/14/14 07/15/20 History Metoprolol Tartrate [Lopressor] 50 mg PO BID #60 tab 10/15/14 07/15/20 Rx Aspirin 81 mg PO HS 02/04/15 07/15/20 History Clopidogrel [Plavix] 75 mg PO DAILY 02/04/15 07/15/20 History Cholecalciferol [Vitamin D3 (25 1,000 unit PO DAILY 09/27/15 07/15/20 History Mcg = 1000 Iu)] Multivit-Mins/Iron/Folic/Lycop 1 tab PO DAILY 01/18/16 07/15/20 History [Centrum Men's Tablet] Rosuvastatin [Crestor] 20 mg PO Q48H 01/18/16 07/15/20 History Ubidecarenone [Co Q-10] 100 mg PO DAILY 01/01/18 07/15/20 History Vitamin B Complex 1 tab PO DAILY 07/15/20 07/15/20 History hydroCHLOROthiazide [Hydrodiuril] 25 mg PO DAILY 07/15/20 07/15/20 History Allergies Allergy/AdvReac Type Severity Reaction Status Date / Time influenza virus vaccine, Allergy Unknown Verified 07/15/20 17:27 specific [influenza virus vacc,specific] Penicillins AdvReac Unknown Verified 07/15/20 17:27 Childhood Physical Exam Vitals: Vital Signs Temp Pulse Pulse Resp BP BP Pulse Ox 07/16/20 08:00 97.7 F 72 17 173/83 96 07/16/20 00:38 66 16 134/70 98 07/15/20 20:00 68 18 07/15/20 18:45 98.4 F 62 68 18 123/65 185/76 98 07/15/20 18:29 98.2 F 75 16 157/75 98 07/15/20 17:00 57 L 16 139/80 96 07/15/20 15:18 69 16 158/67 96 07/15/20 14:30 98.7 F 75 18 07/15/20 14:17 97.8 F 70 18 165/73 98 Intake and Output 07/15/20 07/16/20 07/16/20 22:59 06:59 14:59 Output Total 400 Balance -400 Output: Urine 400 Other: Voiding Method Toilet Toilet # Voids 1 Weight 87.09 kg 86.3 kg 86.3 kg Results 07/15/20 14:58 07/15/20 14:58 Cardiac Enzymes 07/15/20 07/15/20 07/15/20 Range/Units 14:58 14:58 18:03 AST 28 (17-59) U/L Troponin I <0.012 <0.012 (0.000-0.034) ng/mL 07/15/20 Range/Units 20:34 AST (17-59) U/L Troponin I <0.012 (0.000-0.034) ng/mL Coagulation 07/15/20 Range/Units 14:58 PT 10.1 (9.0-12.0) sec APTT 22.5 (22.0-30.0) sec Lipids 07/15/20 Range/Units 14:58 Triglycerides 164 H (<150) mg/dL Cholesterol 177 (<200) mg/dL HDL Cholesterol 55 (40-60) mg/dL CBC 07/15/20 Range/Units 14:58 WBC 12.8 H (3.8-10.6) k/uL RBC 5.01 (4.30-5.90) m/uL Hgb 14.7 (13.0-17.5) gm/dL Hct 43.1 (39.0-53.0) % Plt Count 236 (150-450) k/uL Comprehensive Metabolic Panel 07/15/20 Range/Units 14:58 Sodium 137 (137-145) mmol/L Potassium 4.2 (3.5-5.1) mmol/L Chloride 102 (98-107) mmol/L Carbon Dioxide 29 (22-30) mmol/L BUN 21 H (9-20) mg/dL Creatinine 0.92 (0.66-1.25) mg/dL Glucose 153 H (74-99) mg/dL Calcium 9.5 (8.4-10.2) mg/dL AST 28 (17-59) U/L ALT 21 (4-49) U/L Alkaline Phosphatase 78 (38-126) U/L Total Protein 7.4 (6.3-8.2) g/dL Albumin 4.3 (3.5-5.0) g/dL Current Medications Generic Name Dose Route Start Last Admin Trade Name Freq PRN Reason Stop Dose Admin Aspirin 81 mg 07/16/20 21:00 Aspirin 81 Mg PO HS [facility] Atorvastatin Calcium 40 mg 07/16/20 21:00 Atorvastatin 40 Mg Tab PO Q48H [facility] Cholecalciferol 25 mcg 07/16/20 09:00 07/16/20 09:10 Cholecalciferol 25 Mcg (1000 Iu) Tablet PO 25 mcg DAILY [facility] Administration Clopidogrel Bisulfate 75 mg 07/16/20 09:00 07/16/20 09:10 Clopidogrel 75 Mg Tab PO 75 mg DAILY [facility] Administration Hydrochlorothiazide 25 mg 07/16/20 09:00 07/16/20 09:10 Hydrochlorothiazide 25 Mg Tab PO 25 mg DAILY [facility] Administration Lisinopril 20 mg 07/15/20 21:00 07/16/20 09:10 Lisinopril 20 Mg Tab PO 20 mg BID [facility] Administration Metoprolol Tartrate 50 mg 07/15/20 21:00 07/16/20 11:34 Metoprolol Tartrate 50 Mg Tab PO 50 mg BID [facility] Administration Multivitamins 1 each 07/16/20 09:00 07/16/20 09:10 Multivitamins, Thera 1 Each Tab PO 1 each DAILY [facility] Administration Nitroglycerin 0.4 mg 07/15/20 20:51 Nitroglycerin Sl Tabs 0.4 Mg Tab SUBLINGUAL Q5M PRN Chest Pain Intake and Output 07/15/20 07/16/20 07/16/20 22:59 06:59 14:59 Output Total 400 Balance -400 Output: Urine 400 Other: Voiding Method Toilet Toilet # Voids 1 Weight 87.09 kg 86.3 kg 86.3 kg Patient Weight 07/17/20 06:59 Weight 86.3 kg 07/15/20 14:58 07/15/20 14:58
--- NOTE | 2020-07-16 13:46 | P.DS ---
Providers Date of admission: 07/15/20 17:19 Expected date of discharge: 07/16/20 Attending physician: Aldair Ford Consults: 07/15/20 17:19 Consult Physician Urgent Consulting Provider: [facility] Consult Reason/Comments: Atypical angina Do you want consulting provider notified?: Yes Primary care physician: Jeff Medina [facility] Course: HISTORY OF PRESENT ILLNESS 80-year-old male one of Dr. Medina patient with multiple medical problem known to have history of coronary artery disease post multiple stent placement in the past, history of hypertension and hyperlipidemia [facility] with complain of significant chest pain and discomfort with exertion according to him after he is done walking on his treadmill for about 5 minutes start become diaphoretic and had an episode of chest pain and discomfort between his shoulder blade lasted for about 10 minutes his blood pressure was elevated the time left chest pain resolved continue to have significant elevated blood pressure reading in the time. Patient denies any shortness of breath no cough or wheezes no nausea or vomiting or stomach p ain or major palpitation. With the recurrent episode of chest pain with exertion patient was reminded of his coronary artery disease and the presentation from last time he was in for his stent. Ended up coming to the emergency department at [facility] with troponin was negative Sunday elevated blood sugar of the time with WBC of 12.8. 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 07/16: Patient has been seen by cardiology and underwent stress test which was normal. Patient is cleared for discharge home today. Patient denies having any chest pain, lightheadedness or dizziness. He denies any diaphoresis. She has been afebrile, heart rate 72, blood pressure 173/83, pulse ox 96% on room air. Troponins are negative on 3 draws. Triglycerides 164, cholesterol 177, LDL 89, HDL 55. Patient will be discharged home today in stable condition. ASSESSMENT AND PLAN 1 acute chest pain anginal type with worsening symptom with exertion, acute coronary syndrome ruled out 2 history of CAD post coronary artery angiogram and stent 3 hypertension 4 hyperlipidemia 5 chronic edema DISCHARGE PLAN Home Impression and plan of care have been directed as dictated by the signing physician. Savana Alcaraz nurse practitioner acting as scribe for signing physician. Patient Condition at Discharge: Good Plan - Discharge Summary Discharge Rx Participant: No New Discharge Prescriptions: Continue Quinapril HCl [Accupril] 20 mg PO BID Nitroglycerin Sl Tabs [Nitrostat] 0.4 mg SL Q5M PRN PRN Reason: Chest Pain Metoprolol Tartrate [Lopressor] 50 mg PO BID #60 tab Aspirin 81 mg PO HS Clopidogrel [Plavix] 75 mg PO DAILY Cholecalciferol [Vitamin D3 (25 Mcg = 1000 Iu)] 1,000 unit PO DAILY Rosuvastatin [Crestor] 20 mg PO Q48H Multivit-Mins/Iron/Folic/Lycop [Centrum Men's Tablet] 1 tab PO DAILY Ubidecarenone [Co Q-10] 100 mg PO DAILY hydroCHLOROthiazide [Hydrodiuril] 25 mg PO DAILY Vitamin B Complex 1 tab PO DAILY Discharge Medication List Nitroglycerin Sl Tabs [Nitrostat] 0.4 mg SL Q5M PRN 10/14/14 [History] Quinapril HCl [Accupril] 20 mg PO BID 10/14/14 [History] Metoprolol Tartrate [Lopressor] 50 mg PO BID #60 tab 10/15/14 [Rx] Aspirin 81 mg PO HS 02/04/15 [History] Clopidogrel [Plavix] 75 mg PO DAILY 02/04/15 [History] Cholecalciferol [Vitamin D3 (25 Mcg = 1000 Iu)] 1,000 unit PO DAILY 09/27/15 [History] Multivit-Mins/Iron/Folic/Lycop [Centrum Men's Tablet] 1 tab PO DAILY 01/18/16 [History] Rosuvastatin [Crestor] 20 mg PO Q48H 01/18/16 [History] Ubidecarenone [Co Q-10] 100 mg PO DAILY 01/01/18 [History] Vitamin B Complex 1 tab PO DAILY 07/15/20 [History] hydroCHLOROthiazide [Hydrodiuril] 25 mg PO DAILY 07/15/20 [History] Follow up Appointment(s)/Referral(s): Morelia Kirby MD [STAFF PHYSICIAN] - 1 Week Jeff Medina DO [Primary Care Provider] - 1 Week (has appointment Sunday) Discharge Disposition: HOME SELF-CARE
[2020-07-16 14:34] VITALS: BP 137/73; PULSE 77; TEMP 98.4
[2020-07-16] MEDS ORDERED: ASPIRIN 81 MG PO SCH (21:00)
--- NOTE | 2020-07-19 08:45 | ECHOS ---
STRESS ECHOCARDIOGRAM LUMASON: Vial INDICATIONS: CAD MEDICATIONS: BASELINE HEART RATE 79 BASELINE BLOOD PRESSURE: 164/84 MAXIMUM HEART RATE: 131. MAXIMUM BLOOD PRESSURE: 211/91 85% MPHR: 119 100% MPHR: 140 METS: 7.1 MAXIMUM STAGE REACHED: 2 TOTAL EXERCISE TIME: 6 minutes CLINICAL INFORMATION: Baseline rhythm is sinus mechanism, right bundle branch block, rate of 79. Baseline blood pressure 169/84 mmHg. Patient exercised on Ant protocol for 6 minutes reaching peak rate 131 beats per minute which is equal to 94% maximum predicted heart rate. Peak blood pressure 211/91 mmHg. Test was terminated secondary to fatigue. There was no chest pain. Electrocardiograph monitoring revealed occasional PVCs and couplets. There was no evidence of diagnostic ischemic ST deviation. Baseline echocardiogram revealed normal wall motion. At peak exercise, there was normal wall motion augmentation with no hypokinesis or dyskinesis. CONCLUSION: 1. Good exercise tolerance with nondiagnostic electrocardiograph stress testing secondary to baseline EKG abnormality with occasional PVCs and couplets. 2. Normal stress echocardiogram with no evidence of stress-induced ischemia. MMODL / IJN: [id number] /
== END 2020-07-16 15:11 | disposition home or self-care (01) ==
LOC: EC 14:15 → 6NMEDSUR 17:19 → 3SCARD 18:33
PROVIDERS: ADMIT Internal Medicine Geriatric Medicine; ATTEND Internal Medicine Geriatric Medicine
DX: I25.118 Atherosclerotic heart disease of native coronary artery with other forms of angina pectoris (principal); I10 Essential (primary) hypertension; E78.5 Hyperlipidemia, unspecified; R60.9 Edema, unspecified; Z95.5 Presence of coronary angioplasty implant and graft; I25.2 Old myocardial infarction; I45.10 Unspecified right bundle-branch block; I51.7 Cardiomegaly; G51.0 Bell's palsy; K50.90 Crohn's disease, unspecified, without complications; Z98.890 Other specified postprocedural states; F41.9 Anxiety disorder, unspecified; Z82.49 Family history of ischemic heart disease and other diseases of the circulatory system; Z81.8 Family history of other mental and behavioral disorders; Z79.02 Long term (current) use of antithrombotics/antiplatelets; Z79.82 Long term (current) use of aspirin; Z79.899 Other long term (current) drug therapy; Z88.0 Allergy status to penicillin; Z88.7 Allergy status to serum and vaccine
CPT/HCPCS: 93005 ×2; 99285; 36415; 93306; 93351; 80061; 80053; 83735; 84484; 85025; 85610; 85730; 71046; G0378 ×3

== ENCOUNTER 2020-10-02 16:30 | Emergency (ER) | payer MEDICARE ==
[2020-10-02 16:50] VITALS: BP 153/74; PULSE 71; RESP 18; TEMP 98.2
--- NOTE | 2020-10-02 16:58 | ED ---
General Adult HPI - General Chief complaint: Headache Stated complaint: Head pain Source: patient Mode of arrival: ambulatory Limitations: no limitations - History of Present Illness Initial comments: Patient presents the ED complaining of having an intermittent headache for the past 4 months or so, which is become worse over the past couple of days. Patient states that the pain was initially in his right parietal head, but is now in his left parietal and left frontal headache. Patient states that he has a history of headaches, but this headache has been distantly different than his usual headaches. Patient denies trauma or injury, sudden onset of headache, LOC, neck pain or stiffness, fever or chills, focal numbness/weakness/neuro deficit, visual changes, speech difficulty, sore throat, cough or cold symptoms, chest pain, dyspnea, dizziness, abdominal pain, nausea/vomiting/diarrhea, dysuria or urinary symptoms, or any other symptoms or complaints. Patient state s that his pain is 8/10 in severity when it its worst. Patient states that he took a dose of Tylenol this morning without much relief. - Related Data Home Medications Medication Instructions Recorded Confirmed Nitroglycerin Sl Tabs [Nitrostat] 0.4 mg SL Q5M PRN 10/14/14 07/15/20 Quinapril HCl [Accupril] 20 mg PO BID 10/14/14 07/15/20 Aspirin 81 mg PO HS 02/04/15 07/15/20 Clopidogrel [Plavix] 75 mg PO DAILY 02/04/15 07/15/20 Cholecalciferol [Vitamin D3 (25 1,000 unit PO DAILY 09/27/15 07/15/20 Mcg = 1000 Iu)] Multivit-Mins/Iron/Folic/Lycop 1 tab PO DAILY 01/18/16 07/15/20 [Centrum Men's Tablet] Rosuvastatin [Crestor] 20 mg PO Q48H 01/18/16 07/15/20 Ubidecarenone [Co Q-10] 100 mg PO DAILY 01/01/18 07/15/20 Vitamin B Complex 1 tab PO DAILY 07/15/20 07/15/20 hydroCHLOROthiazide [Hydrodiuril] 25 mg PO DAILY 07/15/20 07/15/20 Previous Rx's Medication Instructions Recorded Metoprolol Tartrate [Lopressor] 50 mg PO BID #60 tab 10/15/14 Allergies Allergy/AdvReac Type Severity Reaction Status Date / Time influenza virus vaccine, Allergy Unknown Verified 10/02/20 16:50 specific [influenza virus vacc,specific] Penicillins AdvReac Unknown Verified 10/02/20 16:50 Childhood Review of Systems ROS Statement: Those systems with pertinent positive or pertinent negative responses have been documented in the HPI. ROS Other: All systems not noted in ROS Statement are negative. 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 Last Myocardial Infarction Date:: 2005 History of Any Multi-Drug Resistant Organisms: None Reported Past Surgical History: Adenoidectomy, Heart Catheterization With Stent, Tonsillectomy Additional Past Surgical History / Comment(s): 2005 Cardiac cath with stenting of LAD, anal fistula surgery, cardiac stents x2 Past Anesthesia/Blood Transfusion Reactions: No Reported Reaction Additional Past Anesthesia/Blood Transfusion Reaction / Comment(s): Pt has never received blood. Date of Last Stent Placement:: 2015 Past Psychological History: Anxiety Smoking Status: Never smoker Past Alcohol Use History: Rare Past Drug Use History: None Reported - Past Family History Father Family Medical History: Coronary Artery Disease (CAD), Myocardial Infarction ([place]) Additional Family Medical History / Comment(s): Father of [place] Mother Family Medical History: Dementia Additional Family Medical History / Comment(s): Mother of alzhiemer's Brother(s) Family Medical History: Cancer, Myocardial Infarction ([place]) Additional Family Medical History / Comment(s): Brother of [place] at age 55yrs but had used cocaine and other drugs. Sister(s) Family Medical History: Cancer Son(s) Family Medical History: No Reported History General Exam Limitations: no limitations General appearance: alert, in no apparent distress Head exam: Present: atraumatic, normocephalic, other (No head or scalp swelling or tenderness is noted on examination) Eye exam: Present: normal appearance, PERRL, EOMI ENT exam: Present: normal oropharynx, mucous membranes moist Neck exam: Present: other (Trachea is in midline; no meningeal signs are present on examination). Absent: tenderness, meningismus Respiratory exam: Present: normal lung sounds bilaterally. Absent: respiratory distress, wheezes, rales, rhonchi, stridor Cardiovascular Exam: Present: regular rate, normal rhythm, normal heart sounds, other (Normal radial pulses bilaterally) GI/Abdominal exam: Present: soft. Absent: distended, tenderness, guarding Extremities exam: Absent: pedal edema Neurological exam: Present: alert, oriented X3, CN II-XII intact. Absent: motor sensory deficit Psychiatric exam: Present: normal affect, normal mood Skin exam: Present: warm, dry, intact, normal color Course Vital Signs 10/02/20 16:46 Temperature 98.2 F Pulse Rate 71 Respiratory 18 Rate Blood Pressure 153/74 O2 Sat by Pulse 96 Oximetry - Reevaluation(s) Reevaluation #1: 10/02/20 18:11 Case, H&P and test results were discussed with an ED resident at [facility]. Ambulance transfer to their ED was accepted by Dr. Quispe (physician). No further recommendations at this time. 10/02/20 18:14 Patient denies development of any new symptoms while in the ED. Patient remains alert and breathing comfortably. Patient continues to have a normal/nonfocal neurological exam. Patient continues to deny sustaining any trauma recently. Patient states that the only anticoagulant medication that he takes his Plavix. Patient is aware of his results and my discussion as above, and he agrees with ambulance transfer to the [facility] ED at this time. Medical Decision Making - Medical Decision Making Patient has developed a nontraumatic left subdural hematoma. Patient's only anticoagulant medication use is Plavix. Patient is alert and breathing co mfortably in the ED, and he has a normal/nonfocal neurological exam. Patient's blood pressure has been under control while in the ED. Patient's labs are fairly unremarkable. Patient has been accepted for ambulance transfer to the [facility] ED. - Lab Data Result diagrams: 10/02/20 Unknown 10/02/20 Unknown Lab Results 10/02/20 10/02/20 10/02/20 Range/Units Unknown Unknown Unknown WBC 8.2 (3.8-10.6) k/uL RBC 4.28 L (4.30-5.90) m/uL Hgb 12.9 L (13.0-17.5) gm/dL Hct 37.0 L (39.0-53.0) % MCV 86.3 (80.0-100.0) fL MCH 30.2 (25.0-35.0) pg MCHC 35.0 (31.0-37.0) g/dL RDW 12.7 (11.5-15.5) % Plt Count 199 (150-450) k/uL MPV 8.0 Neutrophils % 66 % Lymphocytes % 23 % Monocytes % 6 % Eosinophils % 3 % Basophils % 0 % Neutrophils # 5.4 (1.3-7.7) k/uL Lymphocytes # 1.9 (1.0-4.8) k/uL Monocytes # 0.5 (0-1.0) k/uL Eosinophils # 0.2 (0-0.7) k/uL Basophils # 0.0 (0-0.2) k/uL PT 10.2 (9.0-12.0) sec INR 0.9 (<1.2) APTT 22.8 (22.0-30.0) sec Sodium 134 L (137-145) mmol/L Potassium 4.0 (3.5-5.1) mmol/L Chloride 99 (98-107) mmol/L Carbon Dioxide 27 (22-30) mmol/L Anion Gap 8 mmol/L BUN 17 (9-20) mg/dL Creatinine 0.71 (0.66-1.25) mg/dL Est GFR (CKD-EPI)AfAm >90 (>60 ml/min/1.73 sqM) Est GFR (CKD-EPI)NonAf 89 (>60 ml/min/1.73 sqM) Glucose 153 H (74-99) mg/dL Calcium 9.1 (8.4-10.2) mg/dL - Radiology Data Radiology results: report reviewed (Noncontrast head CT: Small to moderate left hemispheric subdural hematoma with minimal rightward midline shift) Critical Care Time Critical Care Time: Yes Total Critical Care Time: 70 (Subdural hematoma) Disposition Clinical Impression: Headache, Subdural hematoma Disposition: OTHER INSTITUTION NOT DEFINED Condition: Stable Is patient prescribed a controlled substance at d/c from ED?: No Referrals: Jeff Medina DO [Primary Care Provider] - 1-2 days Time of Disposition: 18:15 - Out of Hospital Transfer - Req. Specs Out of Hospital Transfer - Requested Specifics: Other Emergency Center ([facility])
[2020-10-02] MEDS ORDERED: SODIUM CHLORIDE 0.9% 500 ML 500 ML IV STA (17:10)
[2020-10-02] MEDS ORDERED: METOCLOPRAMIDE 5 MG/ML 2 ML VIAL IVP STA (17:10)
[2020-10-02] MEDS ORDERED: diphenhydrAMINE 50 MG/ML 1 ML VIAL IVP STA (17:10)
[2020-10-02 17:41] LABS: Basophils % (A) 0 %; Eosinophils # (A) 0.2 k/uL (0-0.7); Eosinophils % (A) 3 %; HGB 12.9 gm/dL (13.0-17.5); Lymphocytes # (A) 1.9 k/uL (1.0-4.8); Lymphocytes % (A) 23 %; MCH 30.2 pg (25.0-35.0); MCV 86.3 fL (80.0-100.0); Monocytes # (A) 0.5 k/uL (0-1.0); Monocytes % (A) 6 %; Neutrophils # (A) 5.4 k/uL (1.3-7.7); Neutrophils % (A) 66 %; Platelet Count 199 k/uL (150-450); RBC 4.28 m/uL (4.30-5.90); RDW 12.7 % (11.5-15.5); WBC 8.2 k/uL (3.8-10.6)
[2020-10-02 17:50] LABS: African American GFR (CKD) >90 (>60 ml/min/1.73 sqM); Anion Gap 8 mmol/L; Blood Urea Nitrogen 17 mg/dL (9-20); Calcium 9.1 mg/dL (8.4-10.2); Carbon Dioxide 27 mmol/L (22-30); Chloride 99 mmol/L (98-107); Glucose 153 mg/dL (74-99); Non-African American GFR(CKD) 89 (>60 ml/min/1.73 sqM); Sodium 134 mmol/L (137-145)
--- NOTE | 2020-10-02 17:59 | CT ---
EXAM: CT brain wo con CLINICAL HISTORY: Headache. COMPARISON: None TECHNIQUE: Contiguous axial noncontrast images of the brain were obtained. Coronal and sagittal refor mats were generated and reviewed. Automated dose control was used for this exam. FINDINGS: There is acute subdural hemorrhage overlying the left hemisphere measuring 7 mm in thickness. There i s mild 3 mm rightward midline shift. There is mild effacement of the left lateral ventricle. There is mild parenchymal volume loss and white matter disease. The paranasal sinuses posterior minimal disease. The mastoid air cells are clear. No evidence for calvarial fracture. IMPRESSION: Small to moderate left hemispheric subdural hematoma with minimal rightward midline shift. Medical team is aware of findings.
[2020-10-02 18:20] LABS: INR 0.9 (<1.2); Partial Thromboplastin Time 22.8 sec (22.0-30.0); Prothrombin Time 10.2 sec (9.0-12.0)
== END 2020-10-02 19:02 | disposition other institution (70) ==
LOC: EC 16:30
DX: I62.00 Nontraumatic subdural hemorrhage, unspecified (principal); E78.5 Hyperlipidemia, unspecified; I10 Essential (primary) hypertension; I25.2 Old myocardial infarction; G51.0 Bell's palsy; F41.9 Anxiety disorder, unspecified; R51.9 Headache, unspecified; Z79.82 Long term (current) use of aspirin; Z79.02 Long term (current) use of antithrombotics/antiplatelets; Z88.0 Allergy status to penicillin; Z88.7 Allergy status to serum and vaccine; Z79.899 Other long term (current) drug therapy; Z95.5 Presence of coronary angioplasty implant and graft
CPT/HCPCS: 36415; 80048; 85025; 85610; 85730; 70450; 96374; 96375; 96361; 99285; J1200; J2765

== ENCOUNTER 2020-12-09 05:05 | Emergency (ER) | payer MEDICARE ==
[2020-12-09 05:10] VITALS: RESP 18; TEMP 98.1
--- NOTE | 2020-12-09 05:20 | ED ---
ENT HPI - General Chief complaint: ENT Stated complaint: Nosebleed Time Seen by Provider: 12/09/20 05:06 Source: patient, RN notes reviewed, old records reviewed Mode of arrival: EMS Limitations: no limitations - History of Present Illness Initial comments: This is a 80-year-old male DF for evaluation of nosebleed. No blood thinners. Patient does suffer from high blood pressure. Patient's presents today for evaluation persistent bleeding that will from woke him up from sleeping for him this morning. Patient denies any symptoms lightheadedness dizziness or weakness. MD complaint: epistaxis -: hour(s) Location: nose Severity: moderate Severity scale (1-10): 4 Consistency: constant Improves with: none Worsens with: none Associated Symptoms: other (none) - Related Data Home Medications Medication Instructions Recorded Confirmed Nitroglycerin Sl Tabs [Nitrostat] 0.4 mg SL Q5M PRN 10/14/14 07/15/20 Quinapril HCl [Accupril] 20 mg PO BID 10/14/14 07/15/20 Aspirin 81 mg PO HS 02/04/15 07/15/20 Clopidogrel [Plavix] 75 mg PO DAILY 02/04/15 07/15/20 Cholecalciferol [Vitamin D3 (25 1,000 unit PO DAILY 09/27/15 07/15/20 Mcg = 1000 Iu)] Multivit-Mins/Iron/Folic/Lycop 1 tab PO DAILY 01/18/16 07/15/20 [Centrum Men's Tablet] Rosuvastatin [Crestor] 20 mg PO Q48H 01/18/16 07/15/20 Ubidecarenone [Co Q-10] 100 mg PO DAILY 01/01/18 07/15/20 Vitamin B Complex 1 tab PO DAILY 07/15/20 07/15/20 hydroCHLOROthiazide [Hydrodiuril] 25 mg PO DAILY 07/15/20 07/15/20 Previous Rx's Medication Instructions Recorded Metoprolol Tartrate [Lopressor] 50 mg PO BID #60 tab 10/15/14 Allergies Allergy/AdvReac Type Severity Reaction Status Date / Time influenza virus vaccine, Allergy Unknown Verified 10/02/20 16:50 specific [influenza virus vacc,specific] Penicillins AdvReac Unknown Verified 10/02/20 16:50 Childhood Review of Systems ROS Statement: Those systems with pertinent positive or pertinent negative responses have been documented in the HPI. ROS Other: All systems not noted in ROS Statement are negative. 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 brain bleed Last Myocardial Infarction Date:: 2005 History of Any Multi-Drug Resistant Organisms: None Reported Past Surgical History: Adenoidectomy, Heart Catheterization With Stent, Tonsillectomy Additional Past Surgical History / Comment(s): 2005 Cardiac cath with stenting of LAD, anal fistula surgery, cardiac stents x2, brain surgery for bleed Past Anesthesia/Blood Transfusion Reactions: No Reported Reaction Additional Past Anesthesia/Blood Transfusion Reaction / Comment(s): Pt has never received blood. Date of Last Stent Placement:: 2015 Past Psychological History: Anxiety Smoking Status: Never smoker Past Alcohol Use History: Rare Past Drug Use History: None Reported - Past Family History Father Family Medical History: Coronary Artery Disease (CAD), Myocardial Infarction ([place]) Additional Family Medical History / Comment(s): Father of [place] Mother Family Medical History: Dementia Additional Family Medical History / Comment(s): Mother of alzhiemer's Brother(s) Family Medical History: Cancer, Myocardial Infarction ([place]) Additional Family Medical History / Comment(s): Brother of [place] at age 55yrs but had used cocaine and other drugs. Sister(s) Family Medical History: Cancer Son(s) Family Medical History: No Reported History General Exam Limitations: no limitations General appearance: alert, in no apparent distress Head exam: Present: atraumatic, normocephalic, normal inspection Eye exam: Present: normal appearance, PERRL, EOMI. Absent: scleral icterus, co njunctival injection, periorbital swelling ENT exam: Present: normal exam, mucous membranes moist, other (Nose bleed has been packed) Neck exam: Present: normal inspection. Absent: tenderness, meningismus, lymphadenopathy Respiratory exam: Present: normal lung sounds bilaterally. Absent: respiratory distress, wheezes, rales, rhonchi, stridor Cardiovascular Exam: Present: regular rate, normal rhythm, normal heart sounds. Absent: systolic murmur, diastolic murmur, rubs, gallop, clicks GI/Abdominal exam: Present: soft, normal bowel sounds. Absent: distended, tenderness, guarding, rebound, rigid Extremities exam: Present: normal inspection, full ROM, normal capillary refill. Absent: tenderness, pedal edema, joint swelling, calf tenderness Back exam: Present: normal inspection Neurological exam: Present: alert, oriented X3, CN II-XII intact Psychiatric exam: Present: normal affect, normal mood Skin exam: Present: warm, dry, intact, normal color. Absent: rash Course Vital Signs 12/09/20 12/09/20 12/09/20 05:06 06:12 06:36 Temperature 98.1 F Pulse Rate 93 77 64 Respiratory 18 18 18 Rate Blood Pressure 186/96 164/81 131/69 O2 Sat by Pulse 97 98 95 Oximetry - Reevaluation(s) Reevaluation #1: Medical record is reviewed Patient symptoms are improved here in the emergency department Patient informed results, questions answered Medical Decision Making - Medical Decision Making 80 male DF for evaluation of left-sided epistaxis, nosebleed, nosebleed is packed and patient can be discharged home Disposition Clinical Impression: Left-sided epistaxis, Hypertension Disposition: HOME SELF-CARE Condition: Good Instructions (If sedation given, give patient instructions): Nosebleed (ED) Is patient prescribed a controlled substance at d/c from ED?: No Referrals: Jeff Medina DO [Primary Care Provider] - 1-2 days
[2020-12-09] MEDS ORDERED: OXYMETAZOLINE 0.05% NASL SPRAY 1 SPRAY BOTTLE NASAL STA (05:22)
[2020-12-09] MEDS ORDERED: cloNIDine HCL 0.1 MG TAB PO STA (05:30)
[2020-12-09 06:37] VITALS: BP 131/69; PULSE 64
== END 2020-12-09 06:55 | disposition home or self-care (01) ==
LOC: EC 05:05
DX: R04.0 Epistaxis (principal); I10 Essential (primary) hypertension; I25.2 Old myocardial infarction; E78.5 Hyperlipidemia, unspecified; Z88.0 Allergy status to penicillin; Z88.7 Allergy status to serum and vaccine; Z79.899 Other long term (current) drug therapy
CPT/HCPCS: 99283

== ENCOUNTER → 2021-06-06 | Outpatient (CLI) | payer MEDICARE ==
[2021-06-06 20:27] LABS: African American GFR (CKD) 97.7 (60.0-200.0); Anion Gap 9.4 mmol/L (10.00-18.00); BUN/Creat Ratio 24.37 Ratio (12.00-20.00); Blood Urea Nitrogen 19.2 mg/dL (9.0-27.0); Calcium 9.6 mg/dL (8.7-10.3); Carbon Dioxide 29.8 mmol/L (20.0-27.5); Non-African American GFR(CKD) 84.3 (60.0-200.0); Potassium 4.3 mmol/L (3.5-5.5)
== END | disposition home or self-care (01) ==
LOC: LABWHC1 10:13
PROVIDERS: ATTEND Nurse Practitioner
DX: I10 Essential (primary) hypertension (principal)
CPT/HCPCS: 36415; 80048

== ENCOUNTER 2021-08-02 06:23 | Emergency (ER) | payer MEDICARE ==
[2021-08-02 07:30] LABS: Basophils % (A) 1 %; Eosinophils # (A) 0.2 k/uL (0-0.7); Eosinophils % (A) 3 %; HCT 46.7 % (39.0-53.0); HGB 15.4 gm/dL (13.0-17.5); Lymphocytes # (A) 1.9 k/uL (1.0-4.8); Lymphocytes % (A) 27 %; MCH 30.2 pg (25.0-35.0); MCHC 33.1 g/dL (31.0-37.0); MCV 91.4 fL (80.0-100.0); Mean Platelet Volume 7.7; Monocytes # (A) 0.4 k/uL (0-1.0); Monocytes % (A) 5 %; Neutrophils # (A) 4.2 k/uL (1.3-7.7); Neutrophils % (A) 61 %; Platelet Count 277 k/uL (150-450); RBC 5.11 m/uL (4.30-5.90); RDW 13.4 % (11.5-15.5); WBC 6.9 k/uL (3.8-10.6)
--- NOTE | 2021-08-02 07:31 | ED ---
Arrhythmia/Palpitations HPI - General Chief Complaint: Arrhythmia/Palpitations Stated Complaint: arrhythmia Time Seen by Provider: 08/02/21 07:00 Source: patient, RN notes reviewed Mode of arrival: wheelchair Limitations: no limitations - History of Present Illness Initial Comments: This is a 81-year-old male with a history of heart disease hypertension and hyperlipidemia states he had the onset this morning around [birth year]26[birth year]1929 irregular heartbeat. States he got up to go the bathroom and when he got back to bed he notices heart was skipping. He denies any chest pain to his breath fevers chills sweats nausea vomiting dizziness or lightheadedness. He's never had this before. He was acting different recently he states his metoprolol was cut from 50 mg twice a day to 25 mg twice a day and was about 2 months ago. No other current complaints or modifying factors MD Complaint: "skipped beats", palpitations - Related Data Home Medications Medication Instructions Recorded Confirmed Nitroglycerin Sl Tabs [Nitrostat] 0.4 mg SL Q5M PRN 10/14/14 08/02/21 Quinapril HCl [Accupril] 20 mg PO BID 10/14/14 08/02/21 Aspirin 81 mg PO HS 02/04/15 08/02/21 Multivit-Mins/Iron/Folic/Lycop 1 tab PO DAILY 01/18/16 08/02/21 [Centrum Men's Tablet] Vitamin B Complex 1 tab PO DAILY 07/15/20 08/02/21 hydroCHLOROthiazide [Hydrodiuril] 25 mg PO DAILY 07/15/20 08/02/21 ALPRAZolam [Xanax] 0.5 mg PO HS 08/02/21 08/02/21 Cholecalciferol [Vitamin D3 (25 25 mcg PO DAILY 08/02/21 08/02/21 Mcg = 1000 Iu)] Metoprolol Tartrate [Lopressor] 25 mg PO BID 08/02/21 08/02/21 amLODIPine [Norvasc] 5 mg PO HS 08/02/21 08/02/21 Allergies Allergy/AdvReac Type Severity Reaction Status Date / Time influenza virus vaccine, Allergy Unknown Verified 08/02/21 07:44 specific [influenza virus vacc,specific] Penicillins AdvReac Unknown Verified 08/02/21 07:44 Childhood rosuvastatin [From Crestor] AdvReac muscle Verified 08/02/21 07:44 cramps Review of Systems ROS Statement: Those systems with pertinent positive or pertinent negative responses have been documented in the HPI. ROS Other: All systems not noted in ROS Statement are negative. 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 brain bleed Last Myocardial Infarction Date:: 2005 History of Any Multi-Drug Resistant Organisms: None Reported Past Surgical History: Adenoidectomy, Heart Catheterization With Stent, Tonsillectomy Additional Past Surgical History / Comment(s): 2005 Cardiac cath with stenting of LAD, anal fistula surgery, cardiac stents x2, brain surgery for bleed Past Anesthesia/Blood Transfusion Reactions: No Reported Reaction Additional Past Anesthesia/Blood Transfusion Reaction / Comment(s): Pt has never received blood. Date of Last Stent Placement:: 2015 Past Psychological History: Anxiety Smoking Status: Never smoker Past Alcohol Use History: Rare Past Drug Use History: None Reported - Past Family History Father Family Medical History: Coronary Artery Disease (CAD), Myocardial Infarction ([place]) Additional Family Medical History / Comment(s): Father of [place] Mother Family Medical History: Dementia Additional Family Medical History / Comment(s): Mother of alzhiemer's Brother(s) Family Medical History: Cancer, Myocardial Infarction ([place]) Additional Family Medical History / Comment(s): Brother of [place] at age 55yrs but had used cocaine and other drugs. Sister(s) Family Medical History: Cancer Son(s) Family Medical History: No Reported History General Exam - General Exam Comments Initial Comments: This is a well-developed well-nourished awake alert oriented 3 male Limitations: no limitations General appearance: alert, in no apparent distress Head exam: Present: atraumatic, normocephalic, normal inspection Eye exam: Present: normal appearance, PERRL, EOMI. Absent: scleral icterus, conjunctival injection, periorbital swelling ENT exam: Present: normal exam, mucous membranes moist Neck exam: Present: normal inspection, full ROM, other (No stridor JVD or bruits). Absent: tenderness, meningismus, lymphadenopathy Respiratory exam: Present: normal lung sounds bilaterally. Absent: respiratory distress, wheezes, rales, rhonchi, stridor Cardiovascular Exam: Present: regular rate, normal heart sounds, other (Intermittent pause noted). Absent: systolic murmur, diastolic murmur, rubs, gallop, clicks GI/Abdominal exam: Present: soft, normal bowel sounds. Absent: distended, tenderness, guarding, rebound, rigid, bruit, pulsatile mass Extremities exam: Present: normal inspection, full ROM, normal capillary refill. Absent: tenderness, pedal edema, joint swelling, calf tenderness Back exam: Present: normal inspection Neurological exam: Present: alert, oriented X3, CN II-XII intact Psychiatric exam: Present: normal affect, normal mood Skin exam: Present: warm, dry, intact, normal color. Absent: rash Course Vital Signs 08/02/21 06:32 Temperature 98.6 F Pulse Rate 74 Respiratory 18 Rate Blood Pressure 187/90 O2 Sat by Pulse 98 Oximetry - Reevaluation(s) Reevaluation #1: 08/02/21 07:32 EKG was compared with one dated 07/15/20 showing similar QRS morphology no PACs at that time Reevaluation #2: 08/02/21 09:29 Repeat EKG shows normal sinus rhythm 87 KS interval 197 QRS duration 145 daily since QTC 394/438 left exodeviation right bundle-branch block pattern septal changes as noted earlier. EKG Findings - EKG Results: EKG: interpreted by ERMD (Sinus tachycardia with frequent supraventricular premature complexes rate 106 KS interval 181 QRS 153 QT/QTC 294/356 left exodeviation right bundle-branch block pattern old septal changes noted) Medical Decision Making - Medical Decision Making I did discuss findings with the patient he has had no further symptoms the presentation appears consistent with paroxysmal PACs. Be discharged home with follow-up with his doctor and with his tow picker. - Lab Data Result diagrams: 08/02/21 07:16 08/02/21 07:16 Lab Results 08/02/21 08/02/21 08/02/21 Range/Units 07:16 07:16 07:16 WBC 6.9 (3.8-10.6) k/uL RBC 5.11 (4.30-5.90) m/uL Hgb 15.4 (13.0-17.5) gm/dL Hct 46.7 (39.0-53.0) % MCV 91.4 (80.0-100.0) fL MCH 30.2 (25.0-35.0) pg MCHC 33.1 (31.0-37.0) g/dL RDW 13.4 (11.5-15.5) % Plt Count 277 (150-450) k/uL MPV 7.7 Neutrophils % 61 % Lymphocytes % 27 % Monocytes % 5 % Eosinophils % 3 % Basophils % 1 % Neutrophils # 4.2 (1.3-7.7) k/uL Lymphocytes # 1.9 (1.0-4.8) k/uL Monocytes # 0.4 (0-1.0) k/uL Eosinophils # 0.2 (0-0.7) k/uL Basophils # 0.0 (0-0.2) k/uL PT 10.2 (9.0-12.0) sec INR 0.9 (<1.2) APTT 23.7 (22.0-30.0) sec Sodium 138 (137-145) mmol/L Potassium 4.0 (3.5-5.1) mmol/L Chloride 102 (98-107) mmol/L Carbon Dioxide 29 (22-30) mmol/L Anion Gap 7 mmol/L BUN 18 (9-20) mg/dL Creatinine 0.83 (0.66-1.25) mg/dL Est GFR (CKD-EPI)AfAm >90 (>60 ml/min/1.73 sqM) Est GFR (CKD-EPI)NonAf 83 (>60 ml/min/1.73 sqM) Glucose 146 H (74-99) mg/dL Calcium 9.5 (8.4-10.2) mg/dL Magnesium 2.1 (1.6-2.3) mg/dL Total Bilirubin 0.8 (0.2-1.3) mg/dL AST 28 (17-59) U/L ALT 19 (4-49) U/L Alkaline Phosphatase 80 (38-126) U/L Troponin I (0.000-0.034) ng/mL Total Protein 7.4 (6.3-8.2) g/dL Albumin 4.2 (3.5-5.0) g/dL TSH 1.550 (0.465-4.680) mIU/L 08/02/21 Range/Units 07:16 WBC (3.8-10.6) k/uL RBC (4.30-5.90) m/uL Hgb (13.0-17.5) gm/dL Hct (39.0-53.0) % MCV (80.0-100.0) fL MCH (25.0-35.0) pg MCHC (31.0-37.0) g/dL RDW (11.5-15.5) % Plt Count (150-450) k/uL MPV Neutrophils % % Lymphocytes % % Monocytes % % Eosinophils % % Basophils % % Neutrophils # (1.3-7.7) k/uL Lymphocytes # (1.0-4.8) k/uL Monocytes # (0-1.0) k/uL Eosinophils # (0-0.7) k/uL Basophils # (0-0.2) k/uL PT (9.0-12.0) sec INR (<1.2) APTT (22.0-30.0) sec Sodium (137-145) mmol/L Potassium (3.5-5.1) mmol/L Chloride (98-107) mmol/L Carbon Dioxide (22-30) mmol/L Anion Gap mmol/L BUN (9-20) mg/dL Creatinine (0.66-1.25) mg/dL Est GFR (CKD-EPI)AfAm (>60 ml/min/1.73 sqM) Est GFR (CKD-EPI)NonAf (>60 ml/min/1.73 sqM) Glucose (74-99) mg/dL Calcium (8.4-10.2) mg/dL Magnesium (1.6-2.3) mg/dL Total Bilirubin (0.2-1.3) mg/dL AST (17-59) U/L ALT (4-49) U/L Alkaline Phosphatase (38-126) U/L Troponin I <0.012 (0.000-0.034) ng/mL Total Protein (6.3-8.2) g/dL Albumin (3.5-5.0) g/dL TSH (0.465-4.680) mIU/L - Radiology Data Radiology results: report reviewed (Imaging reviewed as well as report no acute findings.), image reviewed Disposition Clinical Impression: PAC (premature atrial contraction) Disposition: HOME SELF-CARE Condition: Good Is patient prescribed a controlled substance at d/c from ED?: No Referrals: Jeff Medina DO [Primary Care Provider] - 1-2 days
--- NOTE | 2021-08-02 07:40 | XR ---
EXAMINATION TYPE: XR chest 2V DATE OF EXAM: 08/02/2021 COMPARISON: Chest x-ray July 15, 2020 HISTORY: Dysrhythmia. TECHNIQUE: Frontal and lateral views of the chest are obtained. FINDINGS: There is no suspicious focal air space opacity, pleural effusion, or pneumothorax seen. M ild underlying emphysematous change redemonstrated. The cardiac silhouette size remains within normal limits with atherosclerotic change aortic knob. Multilevel spurring in the lower thoracic spine. IMPRESSION: No acute process. No significant change from prior.
[2021-08-02 07:44] LABS: ALT 19 U/L (4-49); AST 28 U/L (17-59); African American GFR (CKD) >90 (>60 ml/min/1.73 sqM); Albumin 4.2 g/dL (3.5-5.0); Alkaline Phosphatase 80 U/L (38-126); Anion Gap 7 mmol/L; Blood Urea Nitrogen 18 mg/dL (9-20); Calcium 9.5 mg/dL (8.4-10.2); Carbon Dioxide 29 mmol/L (22-30); Chloride 102 mmol/L (98-107); Glucose 146 mg/dL (74-99); Magnesium 2.1 mg/dL (1.6-2.3); Non-African American GFR(CKD) 83 (>60 ml/min/1.73 sqM); Sodium 138 mmol/L (137-145); Total Bilirubin 0.8 mg/dL (0.2-1.3); Total Protein 7.4 g/dL (6.3-8.2)
[2021-08-02 08:03] LABS: INR 0.9 (<1.2); Partial Thromboplastin Time 23.7 sec (22.0-30.0); Prothrombin Time 10.2 sec (9.0-12.0)
[2021-08-02 09:32] VITALS: BP 153/83; PULSE 71; RESP 16; TEMP 98
== END 2021-08-02 10:03 | disposition home or self-care (01) ==
LOC: EC 06:23
DX: I49.1 Atrial premature depolarization (principal); I10 Essential (primary) hypertension; E78.5 Hyperlipidemia, unspecified; I25.2 Old myocardial infarction; F41.9 Anxiety disorder, unspecified; Z79.82 Long term (current) use of aspirin; Z88.7 Allergy status to serum and vaccine; Z88.0 Allergy status to penicillin
CPT/HCPCS: 36415; 71046; 80053; 83735; 84443; 84484; 85025; 85610; 85730; 93005; 99285

== ENCOUNTER 2022-04-20 18:35 | Emergency (ER) | payer MEDICARE ==
[2022-04-20 19:01] VITALS: BP 171/70; PULSE 90; RESP 16; TEMP 98.2
--- NOTE | 2022-04-20 19:46 | XR ---
PROCEDURE: XR knee complete RT - 3V DATE AND TIME: 04/20/2022 7:35 PM CLINICAL INDICATION: 81 M with pain after injury TECHNIQUE: Department protocol COMPARISON: None FINDINGS: There is no fracture or malalignment. The soft tissues are negative for acute findings. Atherosclerotic vascular calcifications appreciated . Moderate marked medial compartment and anterior compartment degenerative joint changes are noted. IMPRESSION: NO ACUTE PROCESS.
--- NOTE | 2022-04-20 20:33 | ED ---
General Adult HPI - General Chief complaint: Extremity Injury, Lower Stated complaint: R knee and thigh pain Time Seen by Provider: 04/20/22 19:35 Source: patient Mode of arrival: wheelchair Limitations: no limitations - History of Present Illness Initial comments: Patient is an 81-year-old male presenting with chief complaint of right knee and thigh pain. Patient states that a few days ago he was moving a heavy statue in his yard, he felt a "twist" in the knee and was experiencing some pain. He had been applying heat and taking Tylenol for the pain. Patient states that today his knee pain was improved, however he was experiencing pain in the upper thigh just above the knee. Patient is concerned for a blood clot. Denies swelling, numbness, tingling, weakness. Patient states pain feels better with standing and walking. Worse when sitting. No redness, warmth, abrasion. No chest pain, difficulty breathing, palpitations. - Related Data Home Medications Medication Instructions Recorded Confirmed Nitroglycerin Sl Tabs [Nitrostat] 0.4 mg SL Q5M PRN 10/14/14 08/02/21 Quinapril HCl [Accupril] 20 mg PO BID 10/14/14 08/02/21 Aspirin 81 mg PO HS 02/04/15 08/02/21 Multivit-Mins/Iron/Folic/Lycop 1 tab PO DAILY 01/18/16 08/02/21 [Centrum Men's Tablet] Vitamin B Complex 1 tab PO DAILY 07/15/20 08/02/21 hydroCHLOROthiazide [Hydrodiuril] 25 mg PO DAILY 07/15/20 08/02/21 ALPRAZolam [Xanax] 0.5 mg PO HS 08/02/21 08/02/21 Cholecalciferol [Vitamin D3 (25 25 mcg PO DAILY 08/02/21 08/02/21 Mcg = 1000 Iu)] Metoprolol Tartrate [Lopressor] 25 mg PO BID 08/02/21 08/02/21 amLODIPine [Norvasc] 5 mg PO HS 08/02/21 08/02/21 Allergies Allergy/AdvReac Type Severity Reaction Status Date / Time influenza virus vaccine, Allergy Unknown Verified 08/02/21 07:44 specific [influenza virus vacc,specific] Penicillins AdvReac Unknown Verified 08/02/21 07:44 Childhood rosuvastatin [From Crestor] AdvReac muscle Verified 08/02/21 07:44 cramps Review of Systems ROS Statement: Those systems with pertinent positive or pertinent negative responses have been documented in the HPI. ROS Other: All systems not noted in ROS Statement are negative. 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 brain bleed Last Myocardial Infarction Date:: 2005 History of Any Multi-Drug Resistant Organisms: None Reported Past Surgical History: Adenoidectomy, Heart Catheterization With Stent, Tonsillectomy Additional Past Surgical History / Comment(s): 2005 Cardiac cath with stenting of LAD, anal fistula surgery, cardiac stents x2, brain surgery for bleed Past Anesthesia/Blood Transfusion Reactions: No Reported Reaction Additional Past Anesthesia/Blood Transfusion Reaction / Comment(s): Pt has never received blood. Date of Last Stent Placement:: 2015 Past Psychological History: Anxiety Smoking Status: Never smoker Past Alcohol Use History: Rare Past Drug Use History: None Reported - Past Family History Father Family Medical History: Coronary Artery Disease (CAD), Myocardial Infarction ([place]) Additional Family Medical History / Comment(s): Father of [place] Mother Family Medical History: Dementia Additional Family Medical History / Comment(s): Mother of alzhiemer's Brother(s) Family Medical History: Cancer, Myocardial Infarction ([place]) Additional Family Medical History / Comment(s): Brother of [place] at age 55yrs but had used cocaine and other drugs. Sister(s) Family Medical History: Cancer Son(s) Family Medical History: No Reported History General Exam Limitations: no limitations General appearance: alert, in no apparent distress Head exam: Present: atraumatic, normocephalic, normal inspection Eye exam: Present: normal appearance, PERRL, EOMI. Absent: scleral icterus, conjunctival injection, periorbital swelling Neck exam: Present: normal inspection Extremities exam: Present: normal inspection, full ROM, normal capillary refill. Absent: tenderness Neurological exam: Present: alert, oriented X3, CN II-XII intact Psychiatric exam: Present: normal affect, normal mood Skin exam: Present: warm, dry, intact, normal color. Absent: rash Course Vital Signs 04/20/22 18:57 Temperature 98.2 F Pulse Rate 90 Respiratory 16 Rate Blood Pressure 171/70 O2 Sat by Pulse 99 Oximetry Medical Decision Making - Medical Decision Making Patient is an 81-year-old male presenting with chief complaint of right knee and leg pain. Pain began a few days ago and patient was moving a heavy statue in his yard. On examination patient has full range of motion and is neurovascularly intact. No swelling. X-ray and Doppler ultrasound are negative. Patient is educated on supportive treatment for knee strain. Follow- up with PCP. Report back to ER with any new or worsening symptoms. Discussed return parameters and answered all questions. Patient conveyed verbal understanding and agreed to the plan. I discussed this case in detail with my attending Dr. Beckett Disposition Clinical Impression: Knee strain Disposition: HOME SELF-CARE Condition: Good Instructions (If sedation given, give patient instructions): Knee Pain (ED) Additional Instructions: Follow-up with PCP. Report back to ER with any new or worsening symptoms. Take Tylenol as needed for pain control. Is patient prescribed a controlled substance at d/c from ED?: No Referrals: Jeff Medina DO [Primary Care Provider] - 1-2 days Time of Disposition: 21:23
--- NOTE | 2022-04-20 21:01 | US ---
EXAMINATION TYPE: US venous doppler duplex LE RT DATE OF EXAM: 04/20/2022 8:46 PM COMPARISON: NONE CLINICAL HISTORY: aching, throbbing pain. Patient states his pain started in his right knee and now h is thigh hurts but not his knee. SIDE PERFORMED: Right TECHNIQUE: The lower extremity deep venous system is examined utilizing real time linear array sonog guy with graded compression, doppler sonography and color-flow sonography. VESSELS IMAGED: Common Femoral Vein Deep Femoral Vein Greater Saphenous Vein * Femoral Vein Popliteal Vein Small Saphenous Vein * Proximal Calf Veins (* superficial vessels) FINDINGS: Grayscale, color doppler, spectral doppler imaging performed of the deep veins of the lower extremities. There is normal flow, compressibility, vascular waveforms. IMPRESSION: Negative for DVT, right lower extremity.
[2022-04-20] MEDS ORDERED: ACET/COD 300 MG/30 MG STARTER PACK 6 TAB BTL PO STA (21:22)
== END 2022-04-20 21:37 | disposition home or self-care (01) ==
LOC: EC 18:35
DX: S83.91XA Sprain of unspecified site of right knee, initial encounter (principal); I10 Essential (primary) hypertension; E78.5 Hyperlipidemia, unspecified; I25.2 Old myocardial infarction; F41.9 Anxiety disorder, unspecified; Z79.899 Other long term (current) drug therapy; Z79.82 Long term (current) use of aspirin; Z88.0 Allergy status to penicillin; Z88.7 Allergy status to serum and vaccine; Z88.8 Allergy status to other drugs, medicaments and biological substances; W22.09XA Striking against other stationary object, initial encounter
CPT/HCPCS: 99284

== ENCOUNTER 2022-12-26 22:14 | Emergency (ER) | payer MEDICARE ==
[2022-12-26 22:23] VITALS: RESP 16; TEMP 98.4
--- NOTE | 2022-12-26 22:32 | ED ---
Chest Pain HPI - General Chief Complaint: Chest Pain Stated Complaint: chest pain Time Seen by Provider: 12/26/22 22:17 Source: patient Mode of arrival: EMS - History of Present Illness Initial Comments: This patient is an 82-year-old man who presents to have evaluation for some symptoms that started tonight after he had been doing a little bit of workup heat this afternoon. The patient states that he noticed that his pulse rate was higher than normal. He states that it usually is in the 50s and 60s but tonight it was up to 86 on his monitor. He also noted what he was calling a bubbling sensation in the epigastric area. He states that that did resolve after he had a bowel movement. He did note that the heart rate at one point went up over 100 and he therefore called EMS. The patient is denying chest pain and dyspnea. No diaphoresis, nausea or vomiting. The epigastric sensation has resolved. Complaint: other -: hour(s) Onset: during rest Pain Location: epigastric Severity: mild Quality: other Consistency: now resolved Improves With: nothing Worsens With: nothing Treatments Prior to Arrival: none - Related Data Home Medications Medication Instructions Recorded Confirmed Nitroglycerin Sl Tabs [Nitrostat] 0.4 mg SL Q5M PRN 10/14/14 08/02/21 Quinapril HCl [Accupril] 20 mg PO BID 10/14/14 08/02/21 Aspirin 81 mg PO HS 02/04/15 08/02/21 Multivit-Mins/Iron/Folic/Lycop 1 tab PO DAILY 01/18/16 08/02/21 [Centrum Men's Tablet] Vitamin B Complex 1 tab PO DAILY 07/15/20 08/02/21 hydroCHLOROthiazide [Hydrodiuril] 25 mg PO DAILY 07/15/20 08/02/21 ALPRAZolam [Xanax] 0.5 mg PO HS 08/02/21 08/02/21 Cholecalciferol [Vitamin D3 (25 25 mcg PO DAILY 08/02/21 08/02/21 Mcg = 1000 Iu)] Metoprolol Tartrate [Lopressor] 25 mg PO BID 08/02/21 08/02/21 amLODIPine [Norvasc] 5 mg PO HS 08/02/21 08/02/21 Allergies Allergy/AdvReac Type Severity Reaction Status Date / Time influenza virus vaccine, Allergy Unknown Verified 08/02/21 07:44 specific [influenza virus vacc,specific] Penicillins AdvReac Unknown Verified 08/02/21 07:44 Childhood rosuvastatin [From Crestor] AdvReac muscle Verified 08/02/21 07:44 cramps Review of Systems ROS Statement: Those systems with pertinent positive or pertinent negative responses have been documented in the HPI. ROS Other: All systems not noted in ROS Statement are negative. Constitutional: Denies: fever, chills Respiratory: Denies: cough, dyspnea Cardiovascular: Reports: as per HPI, chest pain, palpitations Gastrointestinal: Denies: abdominal pain, nausea, vomiting, diarrhea, constipation Genitourinary: Denies: dysuria, hematuria Musculoskeletal: Denies: back pain Skin: Denies: rash Neurological: Denies: headache, weakness EKG Findings - EKG Comments: EKG Findings:: Suspected old lateral infarct, based on Q waves. 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 brain bleed Last Myocardial Infarction Date:: 2005 History of Any Multi-Drug Resistant Organisms: None Reported Past Surgical History: Adenoidectomy, Heart Catheterization With Stent, Tonsillectomy Additional Past Surgical History / Comment(s): 2005 Cardiac cath with stenting of LAD, anal fistula surgery, cardiac stents x2, brain surgery for bleed Past Anesthesia/Blood Transfusion Reactions: No Reported Reaction Additional Past Anesthesia/Blood Transfusion Reaction / Comment(s): Pt has never received blood. Date of Last Stent Placement:: 2015 Past Psychological History: Anxiety Smoking Status: Never smoker Past Alcohol Use History: Rare Past Drug Use History: None Reported - Past Family History Father Family Medical History: Coronary Artery Disease (CAD), Myocardial Infarction (MA) Additional Family Medical History / Comment(s): Father of MA Mother Family Medical History: Dementia Additional Family Medical History / Comment(s): Mother of alzhiemer's Brother(s) Family Medical History: Cancer, Myocardial Infarction (MA) Additional Family Medical History / Comment(s): Brother of MA at age 55yrs but had used cocaine and other drugs. Sister(s) Family Medical History: Cancer Son(s) Family Medical History: No Reported History General Exam General appearance: alert, in no apparent distress Head exam: Present: atraumatic, normocephalic Eye exam: Present: normal appearance. Absent: scleral icterus, conjunctival injection Neck exam: Present: normal inspection Respiratory exam: Present: normal lung sounds bilaterally. Absent: respiratory distress, wheezes, rales, rhonchi, stridor Cardiovascular Exam: Present: regular rate, normal rhythm, normal heart sounds. Absent: systolic murmur, diastolic murmur, rubs, gallop GI/Abdominal exam: Present: soft. Absent: distended, tenderness, guarding, rebound, rigid, mass Extremities exam: Present: normal inspection, normal capillary refill. Absent: pedal edema, calf tenderness Back exam: Present: normal inspection. Absent: CVA tenderness (R), CVA tende rness (L) Neurological exam: Present: alert Skin exam: Present: warm, dry, intact, normal color. Absent: rash Course Vital Signs 12/26/22 12/26/22 22:16 23:32 Temperature 98.4 F Pulse Rate 87 80 Respiratory 16 16 Rate Blood Pressure 162/78 161/76 O2 Sat by Pulse 98 96 Oximetry Chest Pain MDM - MDM The patient had chest x-ray which I interpreted this show hyperinflation. There is no infiltrate, congestive heart failure, pneumothorax. Was pt. sent in by a medical professional or institution (, PA, AUDIOVISUAL TECH, urgent care, hospital, or shelter...) When possible be specific @ -[No] Did you speak to anyone other than the patient for history (EMS, parent, family, police, friend...)? What history was obtained from this source @ -[No] Did you review nursing and triage notes (agree or disagree)? Why? @ -[I reviewed and agree with nursing and triage notes] Were old charts reviewed (outside hosp., previous admission, EMS record, old EKG, old radiological studies, urgent care reports/EKG's, shelter records)? Report findings @ -[No old charts were reviewed] Differential Diagnosis (chest pain, altered mental status, abdominal pain women, abdominal pain men, vaginal bleeding, weakness, fever, dyspnea, syncope, headache, dizziness, GI bleed, back pain, seizure, CVA, palpatations, mental health, musculoskeletal)? @ -[Differential Palpitations Ventricular arrhythmias, atrial arrhythmias, myocardial infarction, anemia, thyrotoxicosis, electrolyte imbalance, hypokalemia, pulmonary embolism, pulmonary disease, drugs, alcohol, anxiety, stress.... This is not meant to be an all-inclusive list. EKG interpreted by me (3pts min.). @ -[As above] X-rays interpreted by me (1pt min.). @ -[As above CT interpreted by me (1pt min.). @ -[None done] U/S interpreted by me (1pt. min.). @ -[None done] What testing was considered but not performed or refused? (CT, X-rays, U/S, labs)? Why? @ -[None] What meds were considered but not given or refused? Why? @ -[None] Did you discuss the management of the patient with other professionals (professionals i.e. , PA, AUDIOVISUAL TECH, lab, RT, psych nurse, aids social worker, fixer boarding room, teacher, credit compliance officer, case advocate)? Give summary @ -[No] Was smoking cessation discussed for >3mins.? @ -[No] Was critical care preformed (if so, how long)? @ -[No] Were there social determinants of health that impacted care today? How? (Homelessness, low income, unemployed, alcoholism, drug addiction, transportation, low edu. Level, literacy, decrease access to med. care, retirement, rehab)? @ -[No] Was there de-escalation of care discussed even if they declined (Discuss DNR or withdrawal of care, Hospice)? DNR status @ -[No] What co-morbidities impacted this encounter? (DM, HTN, Smoking, COPD, CAD, Cancer, CVA, ARF, Chemo, Hep., AIDS, mental health diagnosis, sleep apnea, morbid obesity)? @ -[None] Was patient admitted / discharged? Hospital course, mention meds given and route, prescriptions, significant lab abnormalities, going to OR and other pertinent info. @ -[The patient presents with concern about elevation of his heart rate above what he considers his usual baseline. The physical exam and labs suggestive of some mild hypovolemia area the patient is given fluids and he is feeling better and would like to go home. We discussed appropriate further care and follow-up as well as return parameters. Undiagnosed new problem with uncertain prognosis? @ -[No] Drug Therapy requiring intensive monitoring for toxicity (Heparin, Nitro, Insulin, Cardizem)? @ -[No] Were any procedures done? @ -[No] Diagnosis/symptom? @ -[Acute palpitations, uncomplicated Acute, or Chronic, or Acute on Chronic? @ -[default] Uncomplicated (without systemic symptoms) or Complicated (systemic symptoms)? @ -[default] Side effects of treatment? @ -[No] Exacerbation, Progression, or Severe Exacerbation? @ -[No] Poses a threat to life or bodily function? How? (Chest pain, [place], MA, pneumonia, PE, COPD, DKA, ARF, appy, cholecystitis, CVA, Diverticulitis, Homicidal, Suicidal, threat to staff... and all critical care pts) @ -[No] Disposition Clinical Impression: Palpitations Disposition: HOME SELF-CARE Condition: Good Instructions (If sedation given, give patient instructions): Heart Palpitations (DC) Is patient prescribed a controlled substance at d/c from ED?: No Referrals: Jeff Medina DO [Primary Care Provider] - 1-2 days
[2022-12-26 22:38] LABS: Basophils % (A) 0 %; Eosinophils # (A) 0.3 k/uL (0-0.7); Eosinophils % (A) 4 %; HCT 37.4 % (39.0-53.0); HGB 12.5 gm/dL (13.0-17.5); Lymphocytes # (A) 1.8 k/uL (1.0-4.8); Lymphocytes % (A) 20 %; MCH 29.5 pg (25.0-35.0); MCHC 33.5 g/dL (31.0-37.0); Mean Platelet Volume 8.3; Monocytes # (A) 0.6 k/uL (0-1.0); Monocytes % (A) 7 %; Neutrophils # (A) 5.9 k/uL (1.3-7.7); Neutrophils % (A) 67 %; Platelet Count 222 k/uL (150-450); RBC 4.25 m/uL (4.30-5.90); RDW 13.1 % (11.5-15.5); WBC 8.8 k/uL (3.8-10.6)
[2022-12-26 22:48] LABS: ALT 22 U/L (4-49); AST 40 U/L (17-59); African American GFR (CKD) >90 (>60 ml/min/1.73 sqM); Albumin 4.1 g/dL (3.5-5.0); Alkaline Phosphatase 101 U/L (38-126); Anion Gap 7 mmol/L; Blood Urea Nitrogen 21 mg/dL (9-20); Calcium 8.5 mg/dL (8.4-10.2); Carbon Dioxide 26 mmol/L (22-30); Chloride 100 mmol/L (98-107); Glucose 159 mg/dL (74-99); Magnesium 2.1 mg/dL (1.6-2.3); Non-African American GFR(CKD) 81 (>60 ml/min/1.73 sqM); Sodium 133 mmol/L (137-145); Total Bilirubin 0.6 mg/dL (0.2-1.3)
[2022-12-26 22:53] LABS: INR 0.9 (<1.2); Prothrombin Time 9.9 sec (9.0-12.0)
[2022-12-26 22:55] LABS: Potassium 4.2 mmol/L (3.5-5.1)
[2022-12-26 22:56] LABS: Partial Thromboplastin Time 19.9 sec (22.0-30.0)
--- NOTE | 2022-12-26 22:57 | XR ---
EXAMINATION TYPE: XR chest 2V DATE OF EXAM: 12/26/2022 COMPARISON: 08/02/2021 INDICATION: Dysrhythmia TECHNIQUE: Frontal and lateral views of the chest are obtained. FINDINGS: The heart size is normal. The pulmonary vasculature is normal. The lungs are clear. There is hyperinflation flattening the diaphragms compatible with COPD IMPRESSION: 1. No acute pulmonary process. 2. COPD
[2022-12-26 23:33] VITALS: BP 161/76; PULSE 80
== END 2022-12-27 00:01 | disposition home or self-care (01) ==
LOC: EC 22:14
DX: R00.2 Palpitations (principal); I10 Essential (primary) hypertension; I25.2 Old myocardial infarction; E78.5 Hyperlipidemia, unspecified; F41.9 Anxiety disorder, unspecified; Z79.82 Long term (current) use of aspirin; Z79.899 Other long term (current) drug therapy; Z88.0 Allergy status to penicillin; Z88.7 Allergy status to serum and vaccine; Z88.8 Allergy status to other drugs, medicaments and biological substances
CPT/HCPCS: 36415; 71046; 80053; 83735; 84484; 85025; 85610; 85730; 93005; 99285

== ENCOUNTER → 2023-01-29 | Outpatient (CLI) | payer MEDICARE ==
[2023-01-29 15:38] LABS: HCT 38.9 % (39.6-50.0); HGB 12.7 d/dL (13.0-17.0); MCH 28.9 pg (27.0-32.0); MCHC 32.6 d/dL (32.0-37.0); MCV 88.4 FL (80.0-97.0); Mean Platelet Volume 10.5 FL (9.5-12.2); NRBC Per 100 WBC 0 X 10*3/uL (0.00-0.01); Platelet Count 269 X 10*3/uL (140-440); RDW 13.1 % (11.5-14.5); WBC 7.11 X 10*3/uL (4.50-10.00)
[2023-01-29 15:57] LABS: Blood Urea Nitrogen 13.7 mg/dL (9.0-27.0); Carbon Dioxide 25.8 mmol/L (21.6-31.8); Chloride 101 mmol/L (96-109); Potassium 4.3 mmol/L (3.5-5.5); Sodium 137 mmol/L (135-145)
== END | disposition home or self-care (01) ==
LOC: LABPAT 09:59
PROVIDERS: ATTEND Internal Medicine Interventional Cardiology
DX: Z01.812 Encounter for preprocedural laboratory examination (principal); I25.10 Atherosclerotic heart disease of native coronary artery without angina pectoris
CPT/HCPCS: 36415; 80051; 82565; 84520; 85027

== ENCOUNTER 2023-02-08 08:47 | Day surgery (SDC) | payer MEDICARE ==
[~2023-02-08 08:47] MED LIST changes: +ALPRAZolam 0.25 MG TAB PO PRN; +ASPIRIN 325 MG TAB PO STA; +HEPARIN SODIUM,PORCINE (1 ML) 2,500 UNIT in SODIUM CHLORIDE 0.9% 250 ML IRRIGATION PRN; +HEPARIN SODIUM,PORCINE 10,000 UNIT in SODIUM CHLORIDE 0.9% 1,000 ML IRRIGATION PRN; -LACTATED RINGERS 1,000 ML IV SCH; +NITROGLYCERIN SL TABS 0.4 MG TAB SUBLINGUAL PRN
[2023-02-08] MEDS ORDERED: SODIUM CHLORIDE 0.9% 1,000 ML IV ONE ×2 (08:56→13:45)
[2023-02-08] MEDS ORDERED: ASPIRIN 81 MG ONE (09:05)
[2023-02-08] MEDS: ALPRAZolam 0.5 MG TAB PO PRN ×2 (09:07→23:07)
[2023-02-08] MEDS ORDERED: VERAPAMIL 2.5 MG/ML 2 ML AMP ONE (10:29)
[2023-02-08] MEDS ORDERED: HEPARIN SODIUM 1,000 UN/ML (10ML VL) ONE (10:29)
[2023-02-08] MEDS ORDERED: MIDAZOLAM 2 MG/2 ML VIAL IVP ONE (10:50)
[2023-02-08] MEDS ORDERED: LIDOCAINE 1% INJ 10MG/ML (20 ML MDV) SQ ONE (10:53)
[2023-02-08] MEDS ORDERED: VERAPAMIL SYRINGE (5 MG/10 ML) INTRAARTER ONE (10:55)
[2023-02-08] MEDS: HEPARIN SODIUM 1,000 UN/ML (10ML VL) IV ONE ×3 (10:58→11:42)
[2023-02-08] MEDS ORDERED: IOPAMIDOL-370 100ML BTL INJ ONE ×2 (11:17→12:14)
[2023-02-08] MEDS: NITROGLYCERIN 1000MCG/10ML SYRINGE INTRACORON ONE ×4 (11:18→12:04)
[2023-02-08] MEDS ORDERED: CLOPIDOGREL 75 MG TAB ONE ×2 (12:13→12:17)
[2023-02-08] MEDS ORDERED: CLOPIDOGREL 75 MG TAB PO ONE ×2 (12:14→12:18)
[2023-02-08] MEDS ORDERED: ATROPINE SULFATE 0.1 MG/ML 10ML SYRINGE IV PRN (12:20)
[2023-02-08] MEDS ORDERED: ZOLPIDEM 5 MG TAB PO PRN (12:20)
[2023-02-08] MEDS ORDERED: RX INFO: IV CONTRAST WAS GIVEN 1 EACH MISC MISCELLANE PRN (12:20)
[2023-02-08] MEDS ORDERED: MAG HYDROX/AL HYDROX/SIMETH 30 ML CUP PO PRN (12:20)
[2023-02-08] MEDS ORDERED: ACETAMINOPHEN TAB 500 MG TAB PO ONE (12:50)
[2023-02-08 14:39] VITALS: BMI 26.2
[2023-02-08] MEDS: SODIUM CHLORIDE 0.9% 1,000 ML in EMPTY BAG 1 BAG IV SCH ×2 (15:08→18:53)
[2023-02-08] MEDS: lisinopriL 20 MG TAB PO SCH (20:08)
[2023-02-08] MEDS: METOPROLOL TARTRATE 25 MG TAB PO SCH (20:08)
[2023-02-08] MEDS ORDERED: amLODIPine 5 MG TAB PO SCH (21:00)
[2023-02-08] MEDS ORDERED: ASPIRIN 81 MG PO SCH (21:00)
--- NOTE | 2023-02-08 23:31 | CC ---
CARDIAC CATHETERIZATION REPORT PROCEDURES PERFORMED: 1. Left heart catheterization and coronary angiography. 2. Intravascular ultrasound of left anterior descending coronary artery. 3. Fractional flow reserve assessment/instantaneous wave-free ratio of left anterior descending coronary artery. 4. Shockwave laser lithotripsy of a restenotic lesion within the previously placed stent in mid LAD. 5. Percutaneous transluminal coronary angioplasty. 6. and stenting of mid left anterior descending with a drug-eluting stent. PERFORMED BY: Dr. Darío Kirby. ANESTHESIA: Moderate conscious sedation time was 77 minutes. The patient was administered Versed. Oxygen saturation, hemodynamics, and EKG were monitored closely. CLINICAL INFORMATION: Mr. Parvez Olivas is an 82-year-old gentleman with history of CAD, prior PCI of LAD in 2004 and 2014. He has hypertension and hyperlipidemia. He had a mid LAD stenting in 2004 followed by a restenotic lesion and an additional stent in 2014. Because of symptoms strongly suggestive of angina, he was advised cardiac cath after due discussion regarding risks, benefits, and options. PROCEDURE NOTE: Under local anesthesia and strict aseptic precautions, a 6-Dominican introducer was placed in the right radial artery. I used a JL3.5 and JR4 catheters. With this I checked LV pressures with the right Nadia catheter and also performed selective coronary angiography of both coronary arteries. I noted that the mid LAD immediately after the diagonal branch had what seems to be a 50% to 60% lesion and I therefore decided to do an IFR. I checked LV pressures, but did not perform LV gram. After I performed the IFR, I noted IFR was 0.79 and 0.82 suggestive of this being a very significant lesion and therefore, I proceeded with intervention. CARDIAC CATHETERIZATION FINDINGS: The left ventricular end-diastolic pressure was about 9-10 mmHg with a gradient of about 10 mm across aortic valve. CORONARY ANGIOGRAPHY FINDINGS: Right coronary artery: Technically a dominant vessel, has minor irregularities, distally bifurcates into PDA and PLV. The branches are smaller, but no significant disease. Left main coronary artery: Short patent disease-free vessel that bifurcates into LAD and circumflex. Left anterior descending coronary artery: This vessel has a stent in the LAD immediately after a good-sized diagonal branch that has a 40% ostial lesion. The stented area has about 55% stenosis eccentric, after which the caliber improves gives off additional diagonal and a septal branch that runs all the way to the apex. The in- stent restenosis is about 55%. Left posterior circumflex coronary artery: This is a technically nondominant vessel large in caliber, gives off a good-sized obtuse marginal, then continues down in the AV groove and distal posterolateral branch comes off it. There are minor irregularities of about 30% to 40%, but no significant disease in the nondominant circumflex system. FINAL IMPRESSION: This patient has normal filling pressures. A gradient of 10 mmHg across the aortic valve. Right-dominant system with noncritical disease in the RCA and circumflex. Mid LAD, the site of previous stenting has a 55% stenosis. The diagonal branch has a 40% ostial lesion. Left ventriculogram was not performed. RECOMMENDATIONS: I recommended IFR of LAD and intervention based on findings. INTERVENTION PROCEDURE DETAILS: I used a JL3.5 guide catheter, gave additional heparin. ACT was 260. I used a JL3.5 guide catheter with an Omni wire with a J-tip. Wire was kept distally. Appropriate zeroing and normalization was performed. IFR was measured after taking the guide catheter proximal to the ostium of the left main. Nitroglycerin was also given. IFR was 0.79 and 0.82 suggestive of this mid LAD in-stent area being significant. I proceeded to perform intervention. I advanced over the same wire, a 3.0 caliber 12 mm long lithotripsy balloon and I gave 3 treatments within the lesion of shock wave laser treatments. Three passes were made. There was improvement in the angiographic appearance. I then used a 3.5 caliber 15 mm long NC Trek balloon. We then dilated within the previous stent. There were already 2 stents in the stented area. After giving inflations, I then performed intravascular ultrasound. I noted that the proximal portion of the stent still did not have full expansion. The distal one was fairly well expanded. I decided to go with a 3.75 caliber NC Trek balloon of 8 mm length and with this I gave a 20-minute dilatation at 14 atmospheres in the distal and proximal portion. Following this, angiogram revealed that there was a small dissection distal to the distal end of the stent. I then switched over to a run-through wire and with the run-through wire, I advanced an 8 mm long 3.25 caliber Xience stent and deployed this telescoping to the previous stented segment. The dissection was well tacked up. I then performed another ultrasound of the entire area. Intravascular ultrasound revealed that the stent was well apposed with excellent expansion, full apposition. The patient had mild chest discomfort. No significant EKG changes. He received intravenous heparin. ACT was 260. He received 600 mg of Plavix. There is a remote history of intracranial bleed, but I will use aspirin and Plavix combination for a short duration of maybe 6 months given his history of previous intracranial bleed. This was explained to the patient. Angiographic findings and results were discussed with the patient and family. The sheath was taken out and TR band applied as per protocol. Saturation of the fingers of the right hand was 94%. The patient tolerated the procedure well. Excellent angiographic result was achieved without complication. MMODL / IJN: [id number] /
[2023-02-09 03:20] VITALS: RESP 18
[2023-02-09] MEDS: METOPROLOL TARTRATE 25 MG TAB PO SCH (08:18)
[2023-02-09] MEDS: lisinopriL 20 MG TAB PO SCH (08:18)
--- NOTE | 2023-02-09 08:38 | DS ---
DISCHARGE SUMMARY DIAGNOSES: 1. Unstable angina. 2. Hypertension. 3. Hyperlipidemia. 4. Previous history of intracranial bleed more than 2 years ago. HOSPITAL COURSE: Mr. Parvez Olivas was brought into the hospital because of symptoms of unstable angina and underwent a cardiac cath from right radial approach. Cardiac cath revealed moderate lesion in the mid LAD within a previous stent. He has had a mid LAD stenting performed in 2004 and 2014. I checked the severity of the stenosis by doing an IFR, which was significant and therefore, I performed PTCA and stenting of this vessel along with shock wave lithotripsy. I performed intravascular ultrasound and deployed a 3.25 caliber 8 mm Xience stent distally and the existing stents were treated with shock wave lithotripsy and also a larger balloon inflation with 3.75 caliber NC Trek balloon. Excellent result was achieved. This morning, he is doing well, asymptomatic. Blood pressure 132/70, pulse rate of 64 per minute. EKG revealed sinus with a right bundle. No acute changes. Labs are pending. His right radial site is clean and dry with a good pulse. Physical exam revealed vital signs are stable, S1-S2 heard normally. Short systolic murmur at left sternal border. Lungs are clear. Abdomen and lower extremity exam unchanged. Right radial pulse is excellent. The patient will be discharged today. He will be on aspirin and Plavix without interruption for 6 months in view of his previous intracranial bleed, and we will also increase the atorvastatin to 80 mg daily and continue all his other medications as before. I will see him in the office on the of this month at 0330 in the afternoon. MMODL / IJN: [id number] /
[2023-02-09 08:59] LABS: Basophils % (A) 0 %; Eosinophils # (A) 0.2 k/uL (0-0.7); Eosinophils % (A) 2 %; HCT 41.4 % (39.0-53.0); HGB 13.5 gm/dL (13.0-17.5); Lymphocytes % (A) 11 %; MCH 28.8 pg (25.0-35.0); MCHC 32.5 g/dL (31.0-37.0); MCV 88.6 fL (80.0-100.0); Mean Platelet Volume 7.8; Monocytes # (A) 0.5 k/uL (0-1.0); Monocytes % (A) 6 %; Neutrophils # (A) 6.8 k/uL (1.3-7.7); Neutrophils % (A) 80 %; Platelet Count 217 k/uL (150-450); RBC 4.68 m/uL (4.30-5.90); RDW 12.6 % (11.5-15.5); WBC 8.5 k/uL (3.8-10.6)
[2023-02-09] MEDS ORDERED: ATORVASTATIN 80 MG TAB PO SCH (09:00)
[2023-02-09] MEDS ORDERED: CHOLECALCIFEROL 25 MCG (1000 IU) TABLET PO SCH (09:00)
[2023-02-09] MEDS ORDERED: CLOPIDOGREL 75 MG TAB PO SCH (09:00)
[2023-02-09] MEDS ORDERED: hydroCHLOROthiazide 25 MG TAB PO SCH (09:00)
[2023-02-09] MEDS ORDERED: MULTIVITAMINS, THERA 1 EACH TAB PO SCH (09:00)
[2023-02-09] MEDS ORDERED: NON FORMULARY DRUG (Vitamin B Complex [Vitamin B Complex] 1 EACH Capsule) PO SCH (09:00)
[2023-02-09 09:13] LABS: African American GFR (CKD) >90 (>60 ml/min/1.73 sqM); Anion Gap 6 mmol/L; Blood Urea Nitrogen 12 mg/dL (9-20); Calcium 8.6 mg/dL (8.4-10.2); Carbon Dioxide 24 mmol/L (22-30); Chloride 104 mmol/L (98-107); Glucose 161 mg/dL (74-99); Non-African American GFR(CKD) >90 (>60 ml/min/1.73 sqM); Potassium 4.3 mmol/L (3.5-5.1); Sodium 134 mmol/L (137-145)
[2023-02-09 10:57] VITALS: BP 132/61; PULSE 75; TEMP 97.9
== END 2023-02-09 12:51 | disposition home or self-care (01) ==
LOC: CATHCVL 08:47 → 3SCARD 12:08 → CATHCVL 02-09 12:51
PROVIDERS: ATTEND Internal Medicine Interventional Cardiology
DX: T82.855A Stenosis of coronary artery stent, initial encounter (principal); I25.118 Atherosclerotic heart disease of native coronary artery with other forms of angina pectoris; E78.2 Mixed hyperlipidemia; Z95.5 Presence of coronary angioplasty implant and graft; Z79.82 Long term (current) use of aspirin; Z79.811 Long term (current) use of aromatase inhibitors; Z79.899 Other long term (current) drug therapy
CPT/HCPCS: 93571; 94760; 92978; 93458; 93799; 0715T; 80048; 85025; C9600; C1769 ×3; C1887; C1894; C1753; C1874; C1761; C1725 ×2; J2250; J2001; J1644; Q9967; J2305

== ENCOUNTER 2023-02-11 10:08 | Emergency (ER) | payer MEDICARE ==
[2023-02-11 10:20] VITALS: TEMP 98
[2023-02-11] MEDS ORDERED: methylPREDNISolone SOD SUCCI 125 MG/2 ML VIAL IM ONE (10:35)
--- NOTE | 2023-02-11 10:41 | ED ---
General Adult HPI - General Chief complaint: Skin/Abscess/Foreign Body Stated complaint: Rash Time Seen by Provider: 02/11/23 10:22 Source: patient, RN notes reviewed Mode of arrival: ambulatory Limitations: no limitations - History of Present Illness Initial comments: 82-year-old male presents emergency Department with chief complaint of a rash. Patient states he had a recent heart cath and states that he developed this rash on his chest and back pain was very itchy but improved after hydrocortisone pain. Patient states that he is unsure if she, adenopathy states his discharge and instructions advised him to. Patient denies any paresthesias no difficulty breathing no other associated symptoms. - Related Data Home Medications Medication Instructions Recorded Confirmed Nitroglycerin Sl Tabs [Nitrostat] 0.4 mg SL Q5M PRN 10/14/14 01/31/23 Aspirin 81 mg PO HS 02/04/15 02/08/23 Multivit-Mins/Iron/Folic/Lycop 1 tab PO DAILY 01/18/16 02/08/23 [Centrum Men's Tablet] Vitamin B Complex 1 tab PO DAILY 07/15/20 02/08/23 hydroCHLOROthiazide [Hydrodiuril] 25 mg PO DAILY 07/15/20 02/08/23 ALPRAZolam [Xanax] 0.5 mg PO HS 08/02/21 02/08/23 Cholecalciferol [Vitamin D3 (25 25 mcg PO DAILY 08/02/21 02/08/23 Mcg = 1000 Iu)] Metoprolol Tartrate [Lopressor] 25 mg PO BID 08/02/21 02/08/23 amLODIPine [Norvasc] 5 mg PO HS 08/02/21 02/08/23 Atorvastatin [Lipitor] 40 mg PO DAILY 01/31/23 02/08/23 lisinopriL [Zestril] 20 mg PO BID 01/31/23 02/08/23 Previous Rx's Medication Instructions Recorded Clopidogrel [Plavix] 75 mg PO DAILY tab 02/09/23 predniSONE 50 mg PO DAILY #3 tab 02/11/23 Allergies Allergy/AdvReac Type Severity Reaction Status Date / Time influenza virus vaccine, Allergy Swelling Verified 02/11/23 10:19 specific [influenza virus vacc,specific] Penicillins Allergy swelling, Verified 02/11/23 10:19 red face,ELevated BP rosuvastatin [From Crestor] AdvReac muscle Verified 02/11/23 10:19 cramps Review of Systems ROS Statement: Those systems with pertinent positive or pertinent negative responses have been documented in the HPI. ROS Other: All systems not noted in ROS Statement are negative. 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 brain bleed, arthritis in hands. hx PACs Last Myocardial Infarction Date:: 2005 History of Any Multi-Drug Resistant Organisms: None Reported Past Surgical History: Adenoidectomy, Heart Catheterization With Stent, Tonsillectomy Additional Past Surgical History / Comment(s): 2005 Cardiac cath with stenting of LAD, anal fistula surgery, cardiac stents x2, brain surgery for bleed, Heart cath Jan 2023 Past Anesthesia/Blood Transfusion Reactions: No Reported Reaction Additional Past Anesthesia/Blood Transfusion Reaction / Comment(s): Pt has never received blood. Date of Last Stent Placement:: 2015 Past Psychological History: Anxiety Smoking Status: Former smoker Past Alcohol Use History: None Reported Past Drug Use History: None Reported - Past Family History Father Family Medical History: Coronary Artery Disease (CAD), Myocardial Infarction (NE) Additional Family Medical History / Comment(s): Father of NE, prostate cancer Mother Family Medical History: Dementia Additional Family Medical History / Comment(s): Mother of alzhiemer's Brother(s) Family Medical History: Cancer, Myocardial Infarction (NE) Additional Family Medical History / Comment(s): Brother of NE at age 55yrs but had used cocaine and other drugs. Sister(s) Family Medical History: Cancer Son(s) Family Medical History: No Reported History General Exam Limitations: no limitations General appearance: alert, in no apparent distress Head exam: Present: atraumatic, normocephalic, normal inspection Eye exam: Present: normal appearance, PERRL, EOMI. Absent: scleral icterus, conjunctival injection, periorbital swelling ENT exam: Present: normal exam, normal oropharynx, mucous membranes moist Neck exam: Present: normal inspection, full ROM. Absent: tenderness, meningismus, lymphadenopathy Respiratory exam: Present: normal lung sounds bilaterally. Absent: respiratory distress, wheezes, rales, rhonchi, stridor Cardiovascular Exam: Present: regular rate, normal rhythm, normal heart sounds. Absent: systolic murmur, diastolic murmur, rubs, gallop, clicks Neurological exam: Present: alert Skin exam: Present: warm, dry, intact, normal color, rash, urticaria Course Vital Signs 02/11/23 02/11/23 10:15 10:57 Temperature 98 F 98 F Pulse Rate 68 66 Respiratory 18 16 Rate Blood Pressure 143/73 139/71 O2 Sat by Pulse 99 99 Oximetry Medical Decision Making - Medical Decision Making Was pt. sent in by a medical professional or institution (, LIVAN, BACK HOE MACHINE OPERATOR, urgent care, hospital, or half-way...) When possible be specific @ -No Did you speak to anyone other than the patient for history (EMS, parent, family, police, friend...)? What history was obtained from this source @ -No Did you review nursing and triage notes (agree or disagree)? Why? @ -I reviewed and agree with nursing and triage notes Were old charts reviewed (outside hosp., previous admission, EMS record, old EKG, old radiological studies, urgent care reports/EKG's, half-way records)? Report findings @ -No old charts were reviewed Differential Diagnosis (chest pain, altered mental status, abdominal pain women, abdominal pain men, vaginal bleeding, weakness, fever, dyspnea, syncope, headache, dizziness, GI bleed, back pain, seizure, CVA, palpatations, mental health, musculoskeletal)? @ -ALLERGIC reaction, dermatitis EKG interpreted by me (3pts min.). @ -None X-rays interpreted by me (1pt min.). @ -None done CT interpreted by me (1pt min.). @ -None done U/S interpreted by me (1pt. min.). @ -None done What testing was considered but not performed or refused? (CT, X-rays, U/S, labs)? Why? @ -None What meds were considered but not given or refused? Why? @ -None Did you discuss the management of the patient with other professionals (professionals i.e. LIVAN Hendrix, BACK HOE MACHINE OPERATOR, lab, RT, psych nurse, director social, aerodynamicist, teacher, account officer, director case management)? Give summary @ -No Was smoking cessation discussed for >3mins.? @ -No Was critical care preformed (if so, how long)? @ -No Were there social determinants of health that impacted care today? How? (Homelessness, low income, unemployed, alcoholism, drug addiction, transportation, low edu. Level, literacy, decrease access to med. care, senior living, rehab)? @ -No Was there de-escalation of care discussed even if they declined (Discuss DNR or withdrawal of care, Hospice)? DNR status @ -No What co-morbidities impacted this encounter? (DM, HTN, Smoking, COPD, CAD, Cancer, CVA, ARF, Chemo, Hep., AIDS, mental health diagnosis, sleep apnea, morbid obesity)? @ -None Was patient admitted / discharged? Hospital course, mention meds given and route, prescriptions, significant lab abnormalities, going to OR and other pertinent info. @ -Discharge I do feel this is related to dermatitis, possible ALLERGIC patient will be discharged after steroid injection. Return parameters discussed.. Undiagnosed new problem with uncertain prognosis? @ -No Drug Therapy requiring intensive monitoring for toxicity (Heparin, Nitro, Ins ulin, Cardizem)? @ -No Were any procedures done? @ -No Diagnosis/symptom? @ -ALLERGIC reaction Acute, or Chronic, or Acute on Chronic? @ -Acute Uncomplicated (without systemic symptoms) or Complicated (systemic symptoms)? @ -Uncomplicated Side effects of treatment? @ -No Exacerbation, Progression, or Severe Exacerbation? @ -No Poses a threat to life or bodily function? How? (Chest pain, [place], NE, pneumonia, PE, COPD, DKA, ARF, appy, cholecystitis, CVA, Diverticulitis, Homicidal, Suicidal, threat to staff... and all critical care pts) @ -No Disposition Clinical Impression: Allergic dermatitis Disposition: HOME SELF-CARE Condition: Stable Instructions (If sedation given, give patient instructions): Dermatitis (ED) Additional Instructions: Please return to the Emergency Department if symptoms worsen or any other concerns. Prescriptions: predniSONE 50 mg PO DAILY #3 tab Is patient prescribed a controlled substance at d/c from ED?: No Referrals: Jeff Medina DO [Primary Care Provider] - 1-2 days Time of Disposition: 10:41
[2023-02-11 10:59] VITALS: BP 139/71; PULSE 66; RESP 16
== END 2023-02-11 11:11 | disposition home or self-care (01) ==
LOC: EC 10:08
DX: L23.9 Allergic contact dermatitis, unspecified cause (principal); I10 Essential (primary) hypertension; I25.2 Old myocardial infarction; I25.10 Atherosclerotic heart disease of native coronary artery without angina pectoris; E78.5 Hyperlipidemia, unspecified; F41.9 Anxiety disorder, unspecified; Z95.5 Presence of coronary angioplasty implant and graft; Z79.82 Long term (current) use of aspirin; Z79.899 Other long term (current) drug therapy; Z88.7 Allergy status to serum and vaccine; Z88.0 Allergy status to penicillin; Z88.8 Allergy status to other drugs, medicaments and biological substances; Z87.891 Personal history of nicotine dependence
CPT/HCPCS: 99282; 96372; J2930

== ENCOUNTER 2023-02-12 07:01 | Observation (INO) | payer MEDICARE ==
[2023-02-12] MEDS ORDERED: SODIUM CHLORIDE 0.9% 1,000 ML IV STA (07:29)
[2023-02-12] MEDS ORDERED: ASPIRIN 81 MG PO STA (07:29)
[2023-02-12 07:43] LABS: Basophils % (A) 0 %; Eosinophils # (A) 0.1 k/uL (0-0.7); Eosinophils % (A) 0 %; HCT 36.3 % (39.0-53.0); HGB 12.3 gm/dL (13.0-17.5); Lymphocytes # (A) 0.9 k/uL (1.0-4.8); Lymphocytes % (A) 6 %; MCH 29.8 pg (25.0-35.0); MCHC 33.8 g/dL (31.0-37.0); Mean Platelet Volume 8.1; Monocytes # (A) 0.6 k/uL (0-1.0); Monocytes % (A) 4 %; Neutrophils # (A) 13.6 k/uL (1.3-7.7); Neutrophils % (A) 89 %; Platelet Count 237 k/uL (150-450); RBC 4.13 m/uL (4.30-5.90); RDW 12.8 % (11.5-15.5); WBC 15.2 k/uL (3.8-10.6)
--- NOTE | 2023-02-12 07:45 | ED ---
General Adult HPI - General Chief complaint: Arrhythmia/Palpitations Stated complaint: Tachycardia Time Seen by Provider: 02/12/23 07:16 Source: patient, RN notes reviewed, old records reviewed Mode of arrival: EMS - History of Present Illness Initial comments: Patient is a in 82-year-old male who presents emergency Department complaining of palpitations and fast heart rate at home. He has a history of anxiety, hypertension, recent cardiac cath last week with stent placement, who presents emergency Department after waking up with tachycardia. States he felt his heart was racing. Had no other symptoms at that time. Checked his heart rate on his home pulse oximetry of 130 and he decided he would call the ambulance. States he feels improved at this time. Denies any bo chest pain. Denies any dyspnea. Denies any lower extremity edema. He is on aspirin and Plavix. Denies any nausea, vomiting, diaphoresis. Was evaluated recently for nonspecific rash on his back which has improved. Was given steroid shot yesterday. Has no other acute complaints at this time. Presents for further evaluation. Denies any fevers, chills, cough.he states he does have a history of agitation when he takes Medrol Dosepaks. - Related Data Home Medications Medication Instructions Recorded Confirmed Nitroglycerin Sl Tabs [Nitrostat] 0.4 mg SL Q5M PRN 10/14/14 02/12/23 Aspirin 81 mg PO HS 02/04/15 02/12/23 Multivit-Mins/Iron/Folic/Lycop 1 tab PO DAILY 01/18/16 02/12/23 [Centrum Men's Tablet] Vitamin B Complex 1 tab PO DAILY 07/15/20 02/12/23 hydroCHLOROthiazide [Hydrodiuril] 25 mg PO DAILY 07/15/20 02/12/23 ALPRAZolam [Xanax] 0.5 mg PO HS 08/02/21 02/12/23 Cholecalciferol [Vitamin D3 (25 25 mcg PO DAILY 08/02/21 02/12/23 Mcg = 1000 Iu)] amLODIPine [Norvasc] 5 mg PO HS 08/02/21 02/12/23 Atorvastatin [Lipitor] 40 mg PO DAILY 01/31/23 02/12/23 lisinopriL [Zestril] 20 mg PO BID 01/31/23 02/12/23 Metoprolol Tartrate [Lopressor] 25 mg PO BID 02/12/23 02/12/23 Previous Rx's Medication Instructions Recorded Clopidogrel [Plavix] 75 mg PO DAILY tab 02/09/23 predniSONE 50 mg PO DAILY #3 tab 02/11/23 Allergies Allergy/AdvReac Type Severity Reaction Status Date / Time influenza virus vaccine, Allergy Swelling Verified 02/12/23 08:01 specific [influenza virus vacc,specific] Penicillins Allergy swelling, Verified 02/12/23 08:01 red face,ELevated BP rosuvastatin [From Crestor] AdvReac muscle Verified 02/12/23 08:01 cramps Review of Systems ROS Statement: Those systems with pertinent positive or pertinent negative responses have been documented in the HPI. Review of Systems: CONST: Denies fever EYES: Denies blurry vision ENT: Denies nasal congestion C/V: Denies Chest pain RESP: Denies shortness of breath GI: Denies abdominal pain : Denies dysuria SKIN: Denies rash. MSK: Denies joint pain. NEURO: Denies headache ROS Other: All systems not noted in ROS Statement are negative. 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 brain bleed, arthritis in hands. hx PACs Last Myocardial Infarction Date:: 2005 History of Any Multi-Drug Resistant Organisms: None Reported Past Surgical History: Adenoidectomy, Heart Catheterization With Stent, Tonsillectomy Additional Past Surgical History / Comment(s): 2005 Cardiac cath with stenting of LAD, anal fistula surgery, cardiac stents x2, brain surgery for bleed, Heart cath Jan 2023 Past Anesthesia/Blood Transfusion Reactions: No Reported Reaction Additional Past Anesthesia/Blood Transfusion Reaction / Comment(s): Pt has never received blood. Date of Last Stent Placement:: 2015 Past Psychological History: Anxiety Smoking Status: Former smoker Past Alcohol Use History: None Reported Past Drug Use History: None Reported - Past Family History Father Family Medical History: Coronary Artery Disease (CAD), Myocardial Infarction (PR) Additional Family Medical History / Comment(s): Father of PR, prostate cancer Mother Family Medical History: Dementia Additional Family Medical History / Comment(s): Mother of alzhiemer's Brother(s) Family Medical History: Cancer, Myocardial Infarction (PR) Additional Family Medical History / Comment(s): Brother of PR at age 55yrs but had used cocaine and other drugs. Sister(s) Family Medical History: Cancer Son(s) Family Medical History: No Reported History General Exam - General Exam Comments Initial Comments: General: Appears in no acute distress. HEAD: Normal with no signs of head trauma. EYES: PERRLA, EOMI, conjunctiva normal, no discharge. ENT: Hearing grossly intact, normal oropharynx. RESPIRATORY: Clear breath sounds bilaterally. No wheezes, rales, or rhonchi. C/V: Regular rate and rhythm. S1 and S2 auscultated, no edema, peripheral pulses 2+ and intact throughout ABD: Abd is soft, nontender, nondistended EXT: Normal range of motion, no obvious deformity SKIN: No rashes or lesions observed on exposed skin.Patient's back rash seems improved at this time with minimal erythema located over the left lateral back. No longer causing as much pruritus per patient. Overall appears improved. NEURO: Alert and oriented 4. Patient is complaining of some mild numbness in the ulnar nerve distribution over his fourth and fifth digits of his right hand. This is focal. Course Vital Signs 02/12/23 02/12/23 07:02 08:06 Temperature 98.0 F Pulse Rate 110 H 75 Respiratory 19 20 Rate Blood Pressure 144/63 135/68 O2 Sat by Pulse 97 98 Oximetry Medical Decision Making - Medical Decision Making Was pt. sent in by a medical professional or institution (, PA, SKIVER COUNTER, urgent care, hospital, or jail...) When possible be specific @ -No Did you speak to anyone other than the patient for history (EMS, parent, family, police, friend...)? What history was obtained from this source @ -No Did you review nursing and triage notes (agree or disagree)? Why? @ -I reviewed and agree with nursing and triage notes Were old charts reviewed (outside hosp., previous admission, EMS record, old EKG, old radiological studies, urgent care reports/EKG's, jail records)? Report findings @ -The charts from patient's recent cardiac cath in January 2023 which showed stenting. Differential Diagnosis (chest pain, altered mental status, abdominal pain women, abdominal pain men, vaginal bleeding, weakness, fever, dyspnea, syncope, headache, dizziness, GI bleed, back pain, seizure, CVA, palpatations, mental health, musculoskeletal)? @ -Differential Chest Pain: Stable Angina, Unstable Angina, STEMI, NSTEMI Aortic Dissection, Pneumothorax, Musculoskeletal, Esophageal Spasm GERD, Cholecystitis, Pancreatitis, Zoster, this is not meant to be an all-inclusive list. EKG interpreted by me (3pts min.). @ -As above X-rays interpreted by me (1pt min.). @ - CT interpreted by me (1pt min.). @ -None done U/S interpreted by me (1pt. min.). @ -None done What testing was considered but not performed or refused? (CT, X-rays, U/S, labs)? Why? @ -None What meds were considered but not given or refused? Why? @ -None Did you discuss the management of the patient with other professionals (professionals i.e. , PA, SKIVER COUNTER, lab, RT, psych nurse, outreach and education social worker, overhead irrigator, teacher, gunnery/ordnance officer, behavioral health case manager)? Give summary @ -No Was smoking cessation discussed for >3mins.? @ -No Was critical care preformed (if so, how long)? @ -No Were there social determinants of health that impacted care today? How? (Homel essness, low income, unemployed, alcoholism, drug addiction, transportation, low edu. Level, literacy, decrease access to med. care, [facility], rehab)? @ -No Was there de-escalation of care discussed even if they declined (Discuss DNR or withdrawal of care, Hospice)? DNR status @ -No What co-morbidities impacted this encounter? (DM, HTN, Smoking, COPD, CAD, Cancer, CVA, ARF, Chemo, Hep., AIDS, mental health diagnosis, sleep apnea, morbid obesity)? @ -None Was patient admitted / discharged? Hospital course, mention meds given and route, prescriptions, significant lab abnormalities, going to OR and other pertinent info. @ -Based on the patient's presentation and physical exam, presents with palpitations, atypical chest pain started this morning shortly prior to arrival with recent cardiac stenting last week. We will obtain cardiac workup. He'll be given 324 mg of aspirin. Patient is currently asymptomatic. Vital signs within acceptable limits. He was in agreement this plan. Chest x-ray shows no obvious acute cardio pulmonary process. Patient's labs are remarkable for mild leukocytosis of 15 likely secondary to recent steroid admin istration. Troponin is undetectable. On reevaluation, patient is resting comfortably. He comes heart score is moderate at approximately 4-5. I recommended that we admit the patient to the hospital at this time for observation and troponin trending. He was in agreement this plan. I spoke with the admitting physician, Dr. John who accepted the patient. Cardiology consulted. I did discuss with the patient that his symptoms may be secondary to steroid administration with his history of agitation with Medrol Dosepaks. He was in agreement with this possibility. Undiagnosed new problem with uncertain prognosis? @ -No Drug Therapy requiring intensive monitoring for toxicity (Heparin, Nitro, Insulin, Cardizem)? @ -No Were any procedures done? @ -No Diagnosis/symptom? @ -Chest pain, palpitations Acute, or Chronic, or Acute on Chronic? @ -Acute Uncomplicated (without systemic symptoms) or Complicated (systemic symptoms)? @ -Complicated Side effects of treatment? @ -none Exacerbation, Progression, or Severe Exacerbation] @ -no Poses a threat to life or bodily function? @ -Potentially - Lab Data Result diagrams: 02/12/23 07:36 02/12/23 07:36 Lab Results 02/12/23 02/12/23 02/12/23 Range/Units 07:29 07:36 07:36 WBC 15.2 H (3.8-10.6) k/uL RBC 4.13 L (4.30-5.90) m/uL Hgb 12.3 L (13.0-17.5) gm/dL Hct 36.3 L (39.0-53.0) % MCV 88.0 (80.0-100.0) fL MCH 29.8 (25.0-35.0) pg MCHC 33.8 (31.0-37.0) g/dL RDW 12.8 (11.5-15.5) % Plt Count 237 (150-450) k/uL MPV 8.1 Neutrophils % 89 % Lymphocytes % 6 % Monocytes % 4 % Eosinophils % 0 % Basophils % 0 % Neutrophils # 13.6 H (1.3-7.7) k/uL Lymphocytes # 0.9 L (1.0-4.8) k/uL Monocytes # 0.6 (0-1.0) k/uL Eosinophils # 0.1 (0-0.7) k/uL Basophils # 0.0 (0-0.2) k/uL PT 10.2 (9.0-12.0) sec INR 1.0 (<1.2) APTT 22.3 (22.0-30.0) sec Sodium (137-145) mmol/L Potassium (3.5-5.1) mmol/L Chloride (98-107) mmol/L Carbon Dioxide (22-30) mmol/L Anion Gap mmol/L BUN (9-20) mg/dL Creatinine (0.66-1.25) mg/dL Est GFR (CKD-EPI)AfAm (>60 ml/min/1.73 sqM) Est GFR (CKD-EPI)NonAf (>60 ml/min/1.73 sqM) Glucose (74-99) mg/dL Calcium (8.4-10.2) mg/dL Magnesium (1.6-2.3) mg/dL Total Bilirubin (0.2-1.3) mg/dL AST (17-59) U/L ALT (4-49) U/L Alkaline Phosphatase (38-126) U/L Troponin I (0.000-0.034) ng/mL Total Protein (6.3-8.2) g/dL Albumin (3.5-5.0) g/dL TSH (0.465-4.680) mIU/L Urine Color Light Yellow Urine Appearance Clear (Clear) Urine pH 6.5 (5.0-8.0) Ur Specific [place] 1.005 (1.001-1.035) Urine Protein Negative (Negative) Urine Glucose (UA) 2+ H (Negative) Urine Ketones Negative (Negative) Urine Blood Negative (Negative) Urine Nitrite Negative (Negative) Urine Bilirubin Negative (Negative) Urine Urobilinogen <2.0 (<2.0) mg/dL Ur Leukocyte Esterase Negative (Negative) 02/12/23 02/12/23 Range/Units 07:36 07:36 WBC (3.8-10.6) k/uL RBC (4.30-5.90) m/uL Hgb (13.0-17.5) gm/dL Hct (39.0-53.0) % MCV (80.0-100.0) fL MCH (25.0-35.0) pg MCHC (31.0-37.0) g/dL RDW (11.5-15.5) % Plt Count (150-450) k/uL MPV Neutrophils % % Lymphocytes % % Monocytes % % Eosinophils % % Basophils % % Neutrophils # (1.3-7.7) k/uL Lymphocytes # (1.0-4.8) k/uL Monocytes # (0-1.0) k/uL Eosinophils # (0-0.7) k/uL Basophils # (0-0.2) k/uL PT (9.0-12.0) sec INR (<1.2) APTT (22.0-30.0) sec Sodium 132 L (137-145) mmol/L Potassium 4.1 (3.5-5.1) mmol/L Chloride 100 (98-107) mmol/L Carbon Dioxide 24 (22-30) mmol/L Anion Gap 8 mmol/L BUN 25 H (9-20) mg/dL Creatinine 0.77 (0.66-1.25) mg/dL Est GFR (CKD-EPI)AfAm >90 (>60 ml/min/1.73 sqM) Est GFR (CKD-EPI)NonAf 85 (>60 ml/min/1.73 sqM) Glucose 175 H (74-99) mg/dL Calcium 8.9 (8.4-10.2) mg/dL Magnesium 2.2 (1.6-2.3) mg/dL Total Bilirubin 0.5 (0.2-1.3) mg/dL AST 29 (17-59) U/L ALT 24 (4-49) U/L Alkaline Phosphatase 93 (38-126) U/L Troponin I <0.012 (0.000-0.034) ng/mL Total Protein 6.6 (6.3-8.2) g/dL Albumin 3.9 (3.5-5.0) g/dL TSH 0.318 L (0.465-4.680) mIU/L Urine Color Urine Appearance (Clear) Urine pH (5.0-8.0) Ur Specific [place] (1.001-1.035) Urine Protein (Negative) Urine Glucose (UA) (Negative) Urine Ketones (Negative) Urine Blood (Negative) Urine Nitrite (Negative) Urine Bilirubin (Negative) Urine Urobilinogen (<2.0) mg/dL Ur Leukocyte Esterase (Negative) - EKG Data -: EKG Interpreted by Me EKG Comments: 12-lead Electrocardiogram Interpretation Note EKG was reviewed and interpreted by myself. 12-lead ECG performed at 0704 is interpreted by me as revealing normal sinus rhythm at a rate of 106 beats per minute. [place] is normal. [place] interval is 196 ms, QRS duration is 164 ms, QTc is 443 ms. Chronic right bundle branch block. There appears to be mild ST segment depression in lead V2 with no reciprocal changes at this time. We will obtain repeat EKG to further evaluate for any dynamic changes..R wave progression across the precordium was satisfactory. Repeat EKG was obtained. 12-lead Electrocardiogram Interpretation Note EKG was reviewed and interpreted by myself. 12-lead ECG performed at 0747 is interpreted by me as revealing normal sinus rhythm at a rate of 95 beats per minute. [place] is normal. [place] interval is 203 ms, QRS duration is 155 ms, QTc is 435 ms. Patient is a right bundle branch block which is chronic.. There were no ST or T wave abnormalities to suggest myocardial ischemia or injury. R wave progression across the precordium was satisfactory. By my interpretation this EKG is non-diagnostic for acute ischemia. No acute dynamic changes. The mild isolated ST segment depression is improved. Disposition Clinical Impression: Chest pain, Palpitations Disposition: ADMITTED IP TO THIS HOSP Condition: Stable Referrals: Jeff Medina DO [Primary Care Provider] - 1-2 days Time of Disposition: 08:21
[2023-02-12 07:59] LABS: ALT 24 U/L (4-49); AST 29 U/L (17-59); African American GFR (CKD) >90 (>60 ml/min/1.73 sqM); Albumin 3.9 g/dL (3.5-5.0); Alkaline Phosphatase 93 U/L (38-126); Blood Urea Nitrogen 25 mg/dL (9-20); Calcium 8.9 mg/dL (8.4-10.2); Carbon Dioxide 24 mmol/L (22-30); Glucose 175 mg/dL (74-99); Magnesium 2.2 mg/dL (1.6-2.3); Non-African American GFR(CKD) 85 (>60 ml/min/1.73 sqM); Total Bilirubin 0.5 mg/dL (0.2-1.3); Total Protein 6.6 g/dL (6.3-8.2)
[2023-02-12 08:15] LABS: Appearance,Urine Clear (Clear); Bilirubin,Urine Negative (Negative); Blood,Urine Negative (Negative); Color,Urine Light Yellow; Glucose,Urine (UA) 2+ (Negative); Ketones,Urine Negative (Negative); Leukocyte Esterase,Urine Negative (Negative); Nitrite,Urine Negative (Negative); PH, Urine 6.5 (5.0-8.0); Protein,Urine Negative (Negative); Specific Gravity,Urine 1.005 (1.001-1.035); Urobilinogen,Urine <2.0 mg/dL (<2.0)
--- NOTE | 2023-02-12 08:20 | XR ---
EXAMINATION TYPE: XR chest 2V DATE OF EXAM: 02/12/2023 COMPARISON: 12/26/2022 HISTORY: 82-year-old male dysrhythmia TECHNIQUE: AP and lateral views FINDINGS: Heart normal size. Minimal atherosclerotic arch calcifications. Mild hyperinflation. No bo consoli dation or pleural effusion seen. IMPRESSION: Hyperinflation may relate to depth of inspiration or underlying emphysema. Clinically correlate. Othe rwise, no acute process seen.
[2023-02-12 08:27] LABS: Partial Thromboplastin Time 22.3 sec (22.0-30.0); Prothrombin Time 10.2 sec (9.0-12.0)
[2023-02-12 08:30] LABS: Anion Gap 8 mmol/L; Chloride 100 mmol/L (98-107); Potassium 4.1 mmol/L (3.5-5.1); Sodium 132 mmol/L (137-145)
[2023-02-12] MEDS ORDERED: NALOXONE 0.4 MG/ML 1 ML VIAL IV PRN (08:40)
[2023-02-12] MEDS ORDERED: ONDANSETRON 4 MG/2 ML VIAL IVP PRN (08:40)
[2023-02-12] MEDS ORDERED: NITROGLYCERIN SL TABS 0.4 MG TAB SUBLINGUAL PRN (08:42)
[2023-02-12] MEDS ORDERED: ACETAMINOPHEN TAB 325 MG TAB PO PRN (08:46)
[2023-02-12] MEDS ORDERED: NON FORMULARY DRUG (Vitamin B Complex [Vitamin B Complex] 1 EACH Capsule) PO SCH (09:00)
[2023-02-12] MEDS: ATORVASTATIN 40 MG TAB PO SCH (09:27)
[2023-02-12] MEDS: METOPROLOL TARTRATE 25 MG TAB PO SCH ×2 (09:27→20:24)
[2023-02-12] MEDS: MULTIVITAMINS, THERA 1 EACH TAB PO SCH (09:28)
[2023-02-12] MEDS: CHOLECALCIFEROL 25 MCG (1000 IU) TABLET PO SCH (09:28)
[2023-02-12] MEDS: hydroCHLOROthiazide 25 MG TAB PO SCH (09:28)
[2023-02-12] MEDS: lisinopriL 20 MG TAB PO SCH ×2 (09:28→20:24)
[2023-02-12] MEDS: CLOPIDOGREL 75 MG TAB PO SCH (09:28)
[2023-02-12] MEDS: SODIUM CHLORIDE 0.9% 1,000 ML IV SCH (09:28)
--- NOTE | 2023-02-12 14:59 | P.HPIM ---
History of Present Illness H&P Date: 02/12/23 Chief Complaint: Palpitations * 82-year-old gentleman with past medical history significant for coronary artery disease, angina, hypertension, hyperlipidemia, previous history of intracranial bleed was recently admitted for cardiac catheterization on 02/08/23. Patient had PCI of the mid LAD. Patient was discharged on aspirin and Plavix. Patient and does compliance with medication. He presents back to the emergency with palpitations and chest pressure * Patient states he checked his heart rate at home and was noted to have 1:30. He denies of any associated persistent chest pain. Patient said her symptoms were self resolving. * He was noted to have a rash on his back as well as right arm and went to an urgent care where he was given a shot of steroid. * Workup initiated in ER including an EKG which showed sinus tachycardia with ST segment changes in lateral leads * Initial troponin was obtained which was negative. He place in observation for overnight monitoring and cardiology evaluation REVIEW OF SYSTEMS: Chest pain, shortness of breath CONSTITUTIONAL: No fever, no malaise, no fatigue. HEENT: No recent visual problems or hearing problems. Denied any sore throat. CARDIOVASCULAR: No chest pain, orthopnea, PND, no palpitations, no syncope. PULMONARY: No shortness of breath, no cough, no hemoptysis. GASTROINTESTINAL: No diarrhea, no nausea, no vomiting, no abdominal pain. NEUROLOGICAL: No headaches, no weakness, no numbness. HEMATOLOGICAL: Denies any bleeding or petechiae. GENITOURINARY: Denies any burning micturition, frequency, or urgency. MUSCULOSKELETAL/RHEUMATOLOGICAL: Denies any joint pain, swelling, or any muscle pain. ENDOCRINE: Denies any polyuria or polydipsia. The rest of the 14-point review of systems is negative. PHYSICAL EXAMINATION: GENERAL: The patient is alert and oriented x3, not in any acute distress. Well developed, well nourished. HEENT: Pupils are round and equally reacting to light. EOMI. No scleral icterus. No conjunctival pallor. Normocephalic, atraumatic. No pharyngeal erythema. No thyromegaly. CARDIOVASCULAR: S1 and S2 present. No murmurs, rubs, or gallops. PULMONARY: Chest is clear to auscultation, no wheezing or crackles. ABDOMEN: Soft, nontender, nondistended, normoactive bowel sounds. No palpable organomegaly. MUSCULOSKELETAL: No joint swelling or deformity. EXTREMITIES: No cyanosis, clubbing, or pedal edema. NEUROLOGICAL: Gross neurological examination did not reveal any focal deficits. 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 brain bleed, arthritis in hands. hx PACs Last Myocardial Infarction Date:: 2005 History of Any Multi-Drug Resistant Organisms: None Reported Past Surgical History: Adenoidectomy, Heart Catheterization With Stent, Tonsillectomy Additional Past Surgical History / Comment(s): 2005 Cardiac cath with stenting of LAD, anal fistula surgery, cardiac stents x2, brain surgery for bleed, Heart cath Jan 2023 Past Anesthesia/Blood Transfusion Reactions: No Reported Reaction Additional Past Anesthesia/Blood Transfusion Reaction / Comment(s): Pt has never received blood. Date of Last Stent Placement:: 02/08/23 Past Psychological History: Anxiety Additional Psychological History / Comment(s): Pt lives at home with his . He assists his with her care-she has COPD. He is independent, takes care of his and his 's needs. He cleans house and does yard work. He drives a car. He uses no assistive devices and has no home care agencies coming into the home. Smoking Status: Former smoker Past Alcohol Use History: None Reported Additional Past Alcohol Use History / Comment(s): Pt started smoking in 1954 and quit in 1989 1ppd. He drinks 2 beers a week. Past Drug Use History: None Reported - Past Family History Father Family Medical History: Coronary Artery Disease (CAD), Myocardial Infarction ([place]) Additional Family Medical History / Comment(s): Father of [place], prostate cancer Mother Family Medical History: Dementia Additional Family Medical History / Comment(s): Mother of alzhiemer's Brother(s) Family Medical History: Cancer, Myocardial Infarction ([place]) Additional Family Medical History / Comment(s): Brother of [place] at age 55yrs but had used cocaine and other drugs. Sister(s) Family Medical History: Cancer Son(s) Family Medical History: No Reported History Medications and Allergies Home Medications Medication Instructions Recorded Confirmed Type Nitroglycerin Sl Tabs [Nitrostat] 0.4 mg SL Q5M PRN 10/14/14 02/12/23 History Aspirin 81 mg PO HS 02/04/15 02/12/23 History Multivit-Mins/Iron/Folic/Lycop 1 tab PO DAILY 01/18/16 02/12/23 History [Centrum Men's Tablet] Vitamin B Complex 1 tab PO DAILY 07/15/20 02/12/23 History hydroCHLOROthiazide [Hydrodiuril] 25 mg PO DAILY 07/15/20 02/12/23 History ALPRAZolam [Xanax] 0.5 mg PO HS 08/02/21 02/12/23 History Cholecalciferol [Vitamin D3 (25 25 mcg PO DAILY 08/02/21 02/12/23 History Mcg = 1000 Iu)] amLODIPine [Norvasc] 5 mg PO HS 08/02/21 02/12/23 History Atorvastatin [Lipitor] 40 mg PO DAILY 01/31/23 02/12/23 History lisinopriL [Zestril] 20 mg PO BID 01/31/23 02/12/23 History Clopidogrel [Plavix] 75 mg PO DAILY tab 02/09/23 02/12/23 Rx predniSONE 50 mg PO DAILY #3 tab 02/11/23 02/12/23 Rx Metoprolol Tartrate [Lopressor] 25 mg PO BID 02/12/23 02/12/23 History Allergies Allergy/AdvReac Type Severity Reaction Status Date / Time influenza virus vaccine, Allergy Swelling Verified 02/12/23 08:01 specific [influenza virus vacc,specific] Penicillins Allergy swelling, Verified 02/12/23 08:01 red face,ELevated BP rosuvastatin [From Crestor] AdvReac muscle Verified 02/12/23 08:01 cramps Physical Exam Vitals: Vital Signs Temp Pulse Pulse Resp BP BP Pulse Ox 02/12/23 11:08 97.5 F L 73 16 124/65 98 02/12/23 09:49 65 16 145/68 98 02/12/23 09:00 84 16 120/68 96 02/12/23 08:06 75 20 135/68 98 02/12/23 07:02 98.0 F 110 H 19 144/63 97 Intake and Output 02/11/23 02/12/23 02/12/23 22:59 06:59 14:59 Other: # Voids 3 Weight 80.739 kg Results CBC & Chem 7: 02/12/23 07:36 02/12/23 07:36 Labs: Abnormal Lab Results - Last 24 Hours (Table) 02/12/23 02/12/23 02/12/23 Range/Units 07:29 07:36 07:36 WBC 15.2 H (3.8-10.6) k/uL RBC 4.13 L (4.30-5.90) m/uL Hgb 12.3 L (13.0-17.5) gm/dL Hct 36.3 L (39.0-53.0) % Neutrophils # 13.6 H (1.3-7.7) k/uL Lymphocytes # 0.9 L (1.0-4.8) k/uL Sodium 132 L (137-145) mmol/L BUN 25 H (9-20) mg/dL Glucose 175 H (74-99) mg/dL TSH 0.318 L (0.465-4.680) mIU/L Urine Glucose (UA) 2+ H (Negative) Thrombosis Risk Factor Assmnt - Choose All That Apply Each Risk Factor Represents 3 Points: Age 75 years or older Thrombosis Risk Factor Assessment Total Risk Factor Score: 3 Thrombosis Risk Factor Assessment Level: Moderate Risk Assessment and Plan Assessment: Assessment and plan * Coronary artery disease with PCI LAD, chest pain with stable angina * Hypertension * Dyslipidemia * Rash right arm new onset * Patient admitted on medical floor with consultation from cardiology * Serial troponins ordered, continue with fluid resuscitation * Continue current medical management including aspirin, Lipitor, Plavix, lisinopril, hydrocodone, metoprolol * Patient placed on IV fluid normal saline overnight, sublingual nitro for chest pain * In regards to rash seems to be resolving, topical Benadryl cream ordered * Status is full code
[2023-02-12] MEDS: diphenhydrAMINE 2% CREAM 28.4 GM TUBE TOPICAL SCH ×2 (16:14→20:24)
[2023-02-12] MEDS ORDERED: ALPRAZolam 0.5 MG TAB PO SCH (21:00)
[2023-02-12] MEDS ORDERED: amLODIPine 5 MG TAB PO SCH (21:00)
[2023-02-12] MEDS ORDERED: ASPIRIN 81 MG PO SCH (21:00)
[2023-02-13] MEDS: SODIUM CHLORIDE 0.9% 1,000 ML IV SCH (05:16)
[2023-02-13 08:57] LABS: Basophils # (A) 0.08 X 10*3/uL (0.00-0.10); Basophils % (A) 0.6 %; Eosinophils # (A) 0.14 X 10*3/uL (0.04-0.35); Eosinophils % (A) 1.1 %; HCT 37.9 % (39.6-50.0); HGB 12.3 d/dL (13.0-17.0); Lymphocytes # (A) 2.44 X 10*3/uL (0.90-5.00); Lymphocytes % (A) 18.6 %; MCH 29.4 pg (27.0-32.0); MCHC 32.5 d/dL (32.0-37.0); MCV 90.5 FL (80.0-97.0); Mean Platelet Volume 10.7 FL (9.5-12.2); Monocytes # (A) 0.77 X 10*3/uL (0.20-1.00); Monocytes % (A) 5.9 %; NRBC Per 100 WBC 0 X 10*3/uL (0.00-0.01); Neutrophils # (A) 9.67 X 10*3/uL (1.80-7.70); Neutrophils % (A) 73.5 %; Platelet Count 279 X 10*3/uL (140-440); RBC 4.19 X 10*6/uL (4.40-5.60); RDW 13.4 % (11.5-14.5); WBC 13.14 X 10*3/uL (4.50-10.00)
[2023-02-13 09:05] LABS: BUN/Creat Ratio 18.38 Ratio (12.00-20.00); Blood Urea Nitrogen 14.7 mg/dL (9.0-27.0); Calcium 8.8 mg/dL (8.7-10.3); Carbon Dioxide 28.4 mmol/L (21.6-31.8); Chloride 104 mmol/L (96-109); Glucose 88 mg/dL (70-110); Potassium 4.2 mmol/L (3.5-5.5); Sodium 142 mmol/L (135-145)
[2023-02-13 09:08] VITALS: BP 136/74; PULSE 60; RESP 16; TEMP 97.9
--- NOTE | 2023-02-13 09:08 | P.CRDCN ---
History of Present Illness Consult date: 02/13/23 Consult reason: chest pain History of present illness: History of present illness: This is an 82-year-old male patient of Dr. EMANI Kirby with past medical history of coronary artery disease status post PCI in the LAD in 2004 and again in 2015 followed by recent cardiac catheterization, shockwave laser lithotripsy and stent in the mid LAD, history of hypertension, dyslipidemia, family history of premature CAD, history of tobacco use and dependence. We have been asked to evaluate the patient for recent stent, atypical chest pain. Patient gives history that on December 26 he had episode of palpitations heart rate was up to 120. He was seen in the emergency center and discharged home. About a week later he was on the treadmill for about 30-35 minutes and after he was getting off he was cold and clammy but he did not have any palpitations. He followed up with his PCP the following week and the PCP contacted Dr. Kirby and he subsequently u nderwent cardiac catheterization. Patient states on Sunday he did develop a rash following the cardiac catheterization and he has had cortisone cream applied. He went to the emergency room for this on 02/11 and was given Solu- Medrol 125 mg and sent home on prednisone. Following that, patient took a half of Xanax and fell asleep he woke up at 7 PM and had dinner and then took another half a Xanax at bedtime. When he woke up in the morning he was having palpitations in his heart was going fast. He used his 's pulse ox and found to have a heart rate of 139. He then came into the hospital for further evaluation. Regarding rash, patient still has a rash on the right upper arm. EKG sinus tachycardia, right bundle branch block Chest x-ray: Hyperinflation may relate to depth of inspiration or underlying emphysema. No acute process. WBC 15.2, hemoglobin 12.3, platelet count 237. INR 1.0. Sodium 132, potassium 4.1, BUN 25 creatinine 0.77. Glucose 175. Troponin negative 3. TSH 0.318. Urinalysis 2+ glucose. Home cardiac medications: Amlodipine 5 mg at bedtime, aspirin 81 mg daily, atorvastatin 40 mg daily, Plavix 75 mg daily, hydrochlorothiazide 25 mg daily, lisinopril 20 mg twice daily, Lopressor 25 mg twice daily, Nitrostat as needed. Cardiac catheterization 02/08/2023 revealed normal filling pressures. Gradient of 10 mmHg across the aortic valve. Right dominant system with noncritical disease in the RCA and circumflex. Mid LAD site of previous stenting has 5D5 pe rcent stenosis. Diagonal branches 40% ostial lesion. I FR suggested mid LAD in-stent 0.79 and 0.8 to and shockwave laser lithotripsy within the previously placed stent in the mid LAD, percutaneous transluminal coronary angioplasty and stenting of the mid left anterior descending with a drug-eluting stent performed. Echocardiogram 2020 EF 55% Treadmill stress test 2019: Poor exercise tolerance, nondiagnostic due to baseline EKG abnormalities Event monitor 19/02/2023 revealed sinus rhythm with baseline artifact no significant arrhythmia. Review Of Systems: At the time of my evaluation: Constitutional: No fever, no chills. No weakness, fatigue or lethargy. EENT: No headache. No dizziness. Lungs: No shortness of breath, cough, no sputum production. No wheezing. Cardiovascular: No chest pain, no lower extremity edema. No palpitations. No paroxysmal nocturnal dyspnea. No orthopnea. No lightheadedness or dizziness. No syncopal episodes. Abdominal: No abdominal pain. No nausea, vomiting. No diarrhea. No constipation. No bloody or tarry stools. Genitourinary: No dysuria.. No urinary retention. Musculoskeletal: No myalgias. No muscle weakness, no frequent falls. No back pain. No neck pain. Integumentary: No wounds. No rash. No unusual bruising. Neurologic: No aphasia. No facial droop. No change in mentation. No head injury. No headache. Physical examination: Gen: This is an 82-year-old male resting bed and appears to be comfortable. VS: reviewed HEENT: Head is atraumatic, normocephalic. Pupils equal, round. Sclerae is anicteric. NECK: Supple. No JVD. . LUNGS: Clear to auscultation. No wheezes or rhonchi. No intercostal retractions. HEART: Regular rate and rhythm. No murmur. ABDOMEN: Soft No tenderness. EXTREMITIES: No pedal edema. No calf tenderness. NEUROLOGICAL: Patient is awake, alert and oriented x3. Assessment: Palpitations rule out arrhythmia Overactive thyroid Coronary artery disease with recent stent of the LAD 02/08 Previous stenting of the LAD in 2004 followed by 2016 Hypertension Hyperlipidemia Tobacco use and dependence Plan: Continue patient's home cardiac medications Obtain 30 day event monitor Obtain repeat TSH with free T4 and free T3 Patient is cleared for discharge and recommend follow-up with endocrinology as an outpatient regarding thyroid. Patient had a 7 day event monitor that did not poultry picker arrhythmia. Plan to do a 30 day event monitor and if no arrhythmia is picked up during this timeframe, patient may require a loop recorder. Patient to follow-up with Dr. Kirby in 4-6 weeks. Thank you kindly for this consultation. Nurse practitioner note has been reviewed, I agree with documented findings and plan of care. Patient was seen and examined. 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 brain bleed, arthritis in hands. hx PACs Last Myocardial Infarction Date:: 2005 History of Any Multi-Drug Resistant Organisms: None Reported Past Surgical History: Adenoidectomy, Heart Catheterization With Stent, Tonsillectomy Additional Past Surgical History / Comment(s): 2005 Cardiac cath with stenting of LAD, anal fistula surgery, cardiac stents x2, brain surgery for bleed, Heart cath Jan 2023 Past Anesthesia/Blood Transfusion Reactions: No Reported Reaction Additional Past Anesthesia/Blood Transfusion Reaction / Comment(s): Pt has never received blood. Date of Last Stent Placement:: 02/08/23 Past Psychological History: Anxiety Additional Psychological History / Comment(s): Pt lives at home with his . He assists his with her care-she has COPD. He is independent, takes care of his and his 's needs. He cleans house and does yard work. He drives a car. He uses no assistive devices and has no home care agencies coming into the home. Smoking Status: Former smoker Past Alcohol Use History: None Reported Additional Past Alcohol Use History / Comment(s): Pt started smoking in 1954 and quit in 1989 1ppd. He drinks 2 beers a week. Past Drug Use History: None Reported - Past Family History Father Family Medical History: Coronary Artery Disease (CAD), Myocardial Infarction ([place]) Additional Family Medical History / Comment(s): Father of [place], prostate cancer Mother Family Medical History: Dementia Additional Family Medical History / Comment(s): Mother of alzhiemer's Brother(s) Family Medical History: Cancer, Myocardial Infarction ([place]) Additional Family Medical History / Comment(s): Brother of [place] at age 55yrs but had used cocaine and other drugs. Sister(s) Family Medical History: Cancer Son(s) Family Medical History: No Reported History Medications and Allergies Home Medications Medication Instructions Recorded Confirmed Type Nitroglycerin Sl Tabs [Nitrostat] 0.4 mg SL Q5M PRN 10/14/14 02/12/23 History Aspirin 81 mg PO HS 02/04/15 02/12/23 History Multivit-Mins/Iron/Folic/Lycop 1 tab PO DAILY 01/18/16 02/12/23 History [Centrum Men's Tablet] Vitamin B Complex 1 tab PO DAILY 07/15/20 02/12/23 History hydroCHLOROthiazide [Hydrodiuril] 25 mg PO DAILY 07/15/20 02/12/23 History ALPRAZolam [Xanax] 0.5 mg PO HS 08/02/21 02/12/23 History Cholecalciferol [Vitamin D3 (25 25 mcg PO DAILY 08/02/21 02/12/23 History Mcg = 1000 Iu)] amLODIPine [Norvasc] 5 mg PO HS 08/02/21 02/12/23 History Atorvastatin [Lipitor] 40 mg PO DAILY 01/31/23 02/12/23 History lisinopriL [Zestril] 20 mg PO BID 01/31/23 02/12/23 History Clopidogrel [Plavix] 75 mg PO DAILY tab 02/09/23 02/12/23 Rx predniSONE 50 mg PO DAILY #3 tab 02/11/23 02/12/23 Rx Metoprolol Tartrate [Lopressor] 25 mg PO BID 02/12/23 02/12/23 History Allergies Allergy/AdvReac Type Severity Reaction Status Date / Time influenza virus vaccine, Allergy Swelling Verified 02/12/23 08:01 specific [influenza virus vacc,specific] Penicillins Allergy swelling, Verified 02/12/23 08:01 red face,ELevated BP rosuvastatin [From Crestor] AdvReac muscle Verified 02/12/23 08:01 cramps Physical Exam Vitals: Vital Signs Temp Pulse Resp BP Pulse Ox 02/12/23 09:49 65 16 145/68 98 02/12/23 09:00 84 16 120/68 96 02/12/23 08:06 75 20 135/68 98 02/12/23 07:02 98.0 F 110 H 19 144/63 97 Intake and Output 02/11/23 02/12/23 02/12/23 22:59 06:59 14:59 Other: Weight 80.739 kg Results 02/12/23 07:36 02/12/23 07:36 Cardiac Enzymes 02/12/23 02/12/23 Range/Units 07:36 07:36 AST 29 (17-59) U/L Troponin I <0.012 (0.000-0.034) ng/mL Coagulation 02/12/23 Range/Units 07:36 PT 10.2 (9.0-12.0) sec APTT 22.3 (22.0-30.0) sec CBC 02/12/23 Range/Units 07:36 WBC 15.2 H (3.8-10.6) k/uL RBC 4.13 L (4.30-5.90) m/uL Hgb 12.3 L (13.0-17.5) gm/dL Hct 36.3 L (39.0-53.0) % Plt Count 237 (150-450) k/uL Comprehensive Metabolic Panel 02/12/23 Range/Units 07:36 Sodium 132 L (137-145) mmol/L Potassium 4.1 (3.5-5.1) mmol/L Chloride 100 (98-107) mmol/L Carbon Dioxide 24 (22-30) mmol/L BUN 25 H (9-20) mg/dL Creatinine 0.77 (0.66-1.25) mg/dL Glucose 175 H (74-99) mg/dL Calcium 8.9 (8.4-10.2) mg/dL AST 29 (17-59) U/L ALT 24 (4-49) U/L Alkaline Phosphatase 93 (38-126) U/L Total Protein 6.6 (6.3-8.2) g/dL Albumin 3.9 (3.5-5.0) g/dL Current Medications Generic Name Dose Route Start Last Admin Trade Name Freq PRN Reason Stop Dose Admin Acetaminophen 650 mg 02/12/23 08:46 Acetaminophen Tab 325 Mg Tab PO Q6HR PRN Mild Pain or Fever > 100.5 Alprazolam 0.5 mg 02/12/23 21:00 Alprazolam 0.5 Mg Tab PO HS DAREK Amlodipine Besylate 5 mg 02/12/23 21:00 Amlodipine 5 Mg Tab PO HS DAREK Aspirin 81 mg 02/12/23 21:00 Aspirin 81 Mg PO HS DAREK Atorvastatin Calcium 40 mg 02/12/23 09:00 02/12/23 09:27 Atorvastatin 40 Mg Tab PO 40 mg DAILY DAREK Administration Cholecalciferol 25 mcg 02/12/23 09:00 02/12/23 09:28 Cholecalciferol 25 Mcg (1000 Iu) Tablet PO 25 mcg DAILY DAREK Administration Clopidogrel Bisulfate 75 mg 02/12/23 09:00 02/12/23 09:28 Clopidogrel 75 Mg Tab PO 75 mg DAILY DAREK Administration Hydrochlorothiazide 25 mg 02/12/23 09:00 02/12/23 09:28 Hydrochlorothiazide 25 Mg Tab PO 25 mg DAILY DAREK Administration Sodium Chloride 1,000 mls @ 50 mls/hr 02/12/23 09:00 02/12/23 09:28 Saline 0.9% IV 50 mls/hr .Q20H DAREK Administration Lisinopril 20 mg 02/12/23 09:00 02/12/23 09:28 Lisinopril 20 Mg Tab PO 20 mg BID DAREK Administration Metoprolol Tartrate 25 mg 02/12/23 09:00 02/12/23 09:27 Metoprolol Tartrate 25 Mg Tab PO 25 mg BID DAREK Administration Multivitamins 1 each 02/12/23 09:00 02/12/23 09:28 Multivitamins, Thera 1 Each Tab PO 1 each DAILY DAREK Administration Naloxone HCl 0.2 mg 02/12/23 08:40 Naloxone 0.4 Mg/Ml 1 Ml Vial IV Q2M PRN Opioid Reversal Nitroglycerin 0.4 mg 02/12/23 08:42 Nitroglycerin Sl Tabs 0.4 Mg Tab SUBLINGUAL Q5M PRN Chest Pain Ondansetron HCl 4 mg 02/12/23 08:40 Ondansetron 4 Mg/2 Ml Vial IVP Q8HR PRN Nausea And Vomiting Intake and Output 02/11/23 02/12/23 02/12/23 22:59 06:59 14:59 Other: Weight 80.739 kg Patient Weight 02/13/23 06:59 Weight 80.739 kg 02/12/23 07:36 02/12/23 07:36
[2023-02-13] MEDS: hydroCHLOROthiazide 25 MG TAB PO SCH (10:03)
[2023-02-13] MEDS: CLOPIDOGREL 75 MG TAB PO SCH (10:03)
[2023-02-13] MEDS: METOPROLOL TARTRATE 25 MG TAB PO SCH (10:03)
[2023-02-13] MEDS: lisinopriL 20 MG TAB PO SCH (10:03)
[2023-02-13] MEDS: ATORVASTATIN 40 MG TAB PO SCH (10:03)
[2023-02-13] MEDS: MULTIVITAMINS, THERA 1 EACH TAB PO SCH (10:03)
[2023-02-13] MEDS: CHOLECALCIFEROL 25 MCG (1000 IU) TABLET PO SCH (10:03)
[2023-02-13] MEDS: diphenhydrAMINE 2% CREAM 28.4 GM TUBE TOPICAL SCH (10:04)
--- NOTE | 2023-02-13 10:31 | P.DS ---
Providers Date of admission: 02/12/23 08:46 Expected date of discharge: 02/13/23 Attending physician: Salome John MD Consults: 02/12/23 08:40 Consult Physician Routine Consulting Provider: [facility] Consult Reason/Comments: recent stenting, atypical chest pain/palpatations Do you want consulting provider notified?: Yes Primary care physician: [employer] Course: * 82-year-old gentleman with past medical history significant for coronary artery disease, angina, hypertension, hyperlipidemia, previous history of intracranial bleed was recently admitted for cardiac catheterization on 02/08/23. Patient had PCI of the mid LAD. Patient was discharged on aspirin and Plavix. Patient and does compliance with medication. He presents back to the emergency with palpitations and chest pressure * Patient states he checked his heart rate at home and was noted to have 1:30. He denies of any associated persistent chest pain. Patient said her symptoms were self resolving. * He was noted to have a rash on his back as well as right arm and went to an urgent care where he was given a shot of steroid. * Workup initiated in ER including an EKG which showed sinus tachycardia with ST segment changes in lateral leads * Initial troponin was obtained which was negative. He place in observation for overnight monitoring and cardiology evaluation * Patient had serial troponins done which remained negative. He was seen by cardiology and cleared for discharge. * Home medications were reviewed and reconciled. Discharge on same regimen including aspirin and Plavix PHYSICAL EXAMINATION: GENERAL: The patient is alert and oriented x3, not in any acute distress. Well developed, well nourished. HEENT: Pupils are round and equally reacting to light. EOMI. No scleral icterus. No conjunctival pallor. Normocephalic, atraumatic. No pharyngeal erythema. No thyromegaly. CARDIOVASCULAR: S1 and S2 present. No murmurs, rubs, or gallops. PULMONARY: Chest is clear to auscultation, no wheezing or crackles. ABDOMEN: Soft, nontender, nondistended, normoactive bowel sounds. No palpable organomegaly. MUSCULOSKELETAL: No joint swelling or deformity. EXTREMITIES: No cyanosis, clubbing, or pedal edema. NEUROLOGICAL: Gross neurological examination did not reveal any focal deficits. SKIN: Rash noted on right arm Assessment and plan * Coronary artery disease with PCI LAD, chest pain with stable angina * Hypertension * Dyslipidemia * Rash right arm new onset * Patient admitted on medical floor with consultation from cardiology, cleared for discharge with outpatient follow-up and event monitor * Serial troponins negative, resuscitated with IV fluids * Continue current medical management including aspirin, Lipitor, Plavix, lisinopril, hydrocodone, metoprolol * In regards to rash seems to be resolving, topical Benadryl cream ordered Patient Condition at Discharge: Stable Plan - Discharge Summary New Discharge Prescriptions: New diphenhydrAMINE & Zinc Cream [Benadryl Cream] 1 applic TOPICAL TID 5 Days #1 each Continue Nitroglycerin Sl Tabs [Nitrostat] 0.4 mg SL Q5M PRN PRN Reason: Chest Pain Aspirin 81 mg PO HS Multivit-Mins/Iron/Folic/Lycop [Centrum Men's Tablet] 1 tab PO DAILY hydroCHLOROthiazide [Hydrodiuril] 25 mg PO DAILY Vitamin B Complex 1 tab PO DAILY Cholecalciferol [Vitamin D3 (25 Mcg = 1000 Iu)] 25 mcg PO DAILY ALPRAZolam [Xanax] 0.5 mg PO HS lisinopriL [Zestril] 20 mg PO BID Metoprolol Tartrate [Lopressor] 25 mg PO BID amLODIPine [Norvasc] 5 mg PO HS Atorvastatin [Lipitor] 40 mg PO DAILY Clopidogrel [Plavix] 75 mg PO DAILY tab Discontinued predniSONE 50 mg PO DAILY #3 tab Discharge Medication List Nitroglycerin Sl Tabs [Nitrostat] 0.4 mg SL Q5M PRN 10/14/14 [History] Aspirin 81 mg PO HS 02/04/15 [History] Multivit-Mins/Iron/Folic/Lycop [Centrum Men's Tablet] 1 tab PO DAILY 01/18/16 [History] Vitamin B Complex 1 tab PO DAILY 07/15/20 [History] hydroCHLOROthiazide [Hydrodiuril] 25 mg PO DAILY 07/15/20 [History] ALPRAZolam [Xanax] 0.5 mg PO HS 08/02/21 [History] Cholecalciferol [Vitamin D3 (25 Mcg = 1000 Iu)] 25 mcg PO DAILY 08/02/21 [History] amLODIPine [Norvasc] 5 mg PO HS 08/02/21 [History] Atorvastatin [Lipitor] 40 mg PO DAILY 01/31/23 [History] lisinopriL [Zestril] 20 mg PO BID 01/31/23 [History] Clopidogrel [Plavix] 75 mg PO DAILY tab 02/09/23 [Rx] Metoprolol Tartrate [Lopressor] 25 mg PO BID 02/12/23 [History] diphenhydrAMINE & Zinc Cream [Benadryl Cream] 1 applic TOPICAL TID 5 Days #1 each 02/13/23 [Rx] Follow up Appointment(s)/Referral(s): Morelia Kirby MD [STAFF PHYSICIAN] - 4 Weeks Jeff Medina DO [Primary Care Provider] - 1-2 days Discharge Disposition: HOME SELF-CARE
== END 2023-02-13 12:58 | disposition home or self-care (01) ==
LOC: EC 07:01 → 6NMEDSUR 08:46
PROVIDERS: ADMIT Internal Medicine; ATTEND Internal Medicine
DX: I25.119 Atherosclerotic heart disease of native coronary artery with unspecified angina pectoris (principal); R00.2 Palpitations; E05.90 Thyrotoxicosis, unspecified without thyrotoxic crisis or storm; R21 Rash and other nonspecific skin eruption; F41.9 Anxiety disorder, unspecified; I10 Essential (primary) hypertension; E78.5 Hyperlipidemia, unspecified; I25.2 Old myocardial infarction; Z87.891 Personal history of nicotine dependence; Z95.5 Presence of coronary angioplasty implant and graft; Z79.02 Long term (current) use of antithrombotics/antiplatelets; Z79.82 Long term (current) use of aspirin; Z79.899 Other long term (current) drug therapy; Z88.0 Allergy status to penicillin; Z82.49 Family history of ischemic heart disease and other diseases of the circulatory system
CPT/HCPCS: 36415; 71046; 80048; 80053; 81003; 83735; 84443; 84484; 85025; 85610; 85730; 93005; 93270; 96360; 96361; 99285

== ENCOUNTER → 2023-05-08 | Outpatient (CLI) | payer MEDICARE ==
[2023-05-09 01:29] LABS: T4, Free (Free Thyroxine) 1.09 ng/dL (0.80-1.80)
== END | disposition home or self-care (01) ==
LOC: LABWHC1 14:17
PROVIDERS: ATTEND Internal Medicine Interventional Cardiology
DX: Z00.00 Encounter for general adult medical examination without abnormal findings (principal); I25.10 Atherosclerotic heart disease of native coronary artery without angina pectoris; E03.9 Hypothyroidism, unspecified
CPT/HCPCS: 36415; 84439; 84443

== ENCOUNTER 2024-09-10 06:36 | Emergency (ER) | payer MEDICARE ==
--- NOTE | 2024-09-10 06:57 | ED ---
Arrhythmia/Palpitations HPI - General Chief Complaint: Arrhythmia/Palpitations Stated Complaint: Rapid Heart Rate Time Seen by Provider: 09/10/24 06:44 Source: patient, RN notes reviewed Mode of arrival: ambulatory Limitations: no limitations - History of Present Illness Initial Comments: 84-year-old male presents emergency department chief complaint of palpitations. Patient states since morning he has felt like his hearts been racing. He states that it gets worse if he moves around. He denies any history of A-fib or irregular heartbeat he denies history of DVT or PE he states that when his heart is racing he gets very anxious and feels short of breath denies any cough or cold-like symptoms no headache or dizziness no focal weakness. - Related Data Home Medications Medication Instructions Recorded Confirmed Nitroglycerin Sl Tabs [Nitrostat] 0.4 mg SL Q5M PRN 10/14/14 02/12/23 Aspirin 81 mg PO HS 02/04/15 02/12/23 Multivit-Mins/Iron/Folic/Lycop 1 tab PO DAILY 01/18/16 02/12/23 [Centrum Men's Tablet] Vitamin B Complex 1 tab PO DAILY 07/15/20 02/12/23 hydroCHLOROthiazide [Hydrodiuril] 25 mg PO DAILY 07/15/20 02/12/23 ALPRAZolam [Xanax] 0.5 mg PO HS 08/02/21 02/12/23 Cholecalciferol [Vitamin D3 (25 25 mcg PO DAILY 08/02/21 02/12/23 Mcg = 1000 Iu)] amLODIPine [Norvasc] 5 mg PO HS 08/02/21 02/12/23 Atorvastatin [Lipitor] 40 mg PO DAILY 01/31/23 02/12/23 lisinopriL [Zestril] 20 mg PO BID 01/31/23 02/12/23 Metoprolol Tartrate [Lopressor] 25 mg PO BID 02/12/23 02/12/23 Previous Rx's Medication Instructions Recorded Clopidogrel [Plavix] 75 mg PO DAILY tab 02/09/23 diphenhydrAMINE & Zinc Cream 1 applic TOPICAL TID 5 Days #1 each 02/13/23 [Benadryl Cream] Allergies Allergy/AdvReac Type Severity Reaction Status Date / Time influenza virus vaccine, Allergy Swelling Verified 09/10/24 06:38 specific [influenza virus vacc,specific] Penicillins Allergy swelling, Verified 09/10/24 06:38 red face,ELevated BP rosuvastatin [From Crestor] AdvReac muscle Verified 09/10/24 06:38 cramps Review of Systems ROS Statement: Those systems with pertinent positive or pertinent negative responses have been documented in the HPI. ROS Other: All systems not noted in ROS Statement are negative. 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 brain bleed, arthritis in hands. hx PACs Last Myocardial Infarction Date:: 2005 History of Any Multi-Drug Resistant Organisms: None Reported Past Surgical History: Adenoidectomy, Heart Catheterization With Stent, Ton sillectomy Additional Past Surgical History / Comment(s): 2005 Cardiac cath with stenting of LAD, anal fistula surgery, cardiac stents x2, brain surgery for bleed, Heart cath Jan 2023 Past Anesthesia/Blood Transfusion Reactions: No Reported Reaction Additional Past Anesthesia/Blood Transfusion Reaction / Comment(s): Pt has never received blood. Date of Last Stent Placement:: 02/08/23 Past Psychological History: Anxiety Smoking Status: Former smoker Past Alcohol Use History: None Reported Past Drug Use History: None Reported - Past Family History Father Family Medical History: Coronary Artery Disease (CAD), Myocardial Infarction (NM) Additional Family Medical History / Comment(s): Father of NM, prostate can cer Mother Family Medical History: Dementia Additional Family Medical History / Comment(s): Mother of alzhiemer's Brother(s) Family Medical History: Cancer, Myocardial Infarction (NM) Additional Family Medical History / Comment(s): Brother of NM at age 55yrs but had used cocaine and other drugs. Sister(s) Family Medical History: Cancer Son(s) Family Medical History: No Reported History General Exam Limitations: no limitations General appearance: alert, in no apparent distress Head exam: Present: atraumatic, normocephalic, normal inspection Eye exam: Present: normal appearance, PERRL, EOMI. Absent: scleral icterus, conjunctival injection, periorbital swelling ENT exam: Present: normal exam, mucous membranes moist Neck exam: Present: normal inspection, full ROM. Absent: tenderness, meningismus, lymphadenopathy Respiratory exam: Present: normal lung sounds bilaterally. Absent: respiratory distress, wheezes, rales, rhonchi, stridor Cardiovascular Exam: Present: regular rate, normal rhythm, normal heart sounds. Absent: systolic murmur, diastolic murmur, rubs, gallop, clicks GI/Abdominal exam: Present: soft, normal bowel sounds. Absent: distended, tenderness, guarding, rebound, rigid Course Vital Signs 09/10/24 09/10/24 09/10/24 06:38 07:33 08:30 Temperature 97.8 F Pulse Rate 88 74 75 Respiratory 18 16 16 Rate Blood Pressure 155/77 164/75 131/69 O2 Sat by Pulse 97 97 98 Oximetry 09/10/24 09/10/24 08:57 09:46 Temperature 97.9 F Pulse Rate 82 75 Respiratory 18 16 Rate Blood Pressure 178/83 104/65 O2 Sat by Pulse 95 98 Oximetry EKG Findings - EKG Comments: EKG Findings:: EKG performed at 6: 53 sinus rhythm rate of 85 FL 195 QRS 157 QT/QTc 417/4. Right bundle noted - EKG Results: EKG: interpreted by ANABELLA Medical Decision Making - Medical Decision Making Was pt. sent in by a medical professional or institution ([facility], [facility], urgent care, hospital, or retirement...) When possible be specific @ -No Did you speak to anyone other than the patient for history (EMS, parent, family, police, friend...)? What history was obtained from this source @ -No Did you review nursing and triage notes (agree or disagree)? Why? @ -I reviewed and agree with nursing and triage notes Were old charts reviewed (outside hosp., previous admission, EMS record, old EKG, old radiological studies, urgent care reports/EKG's, retirement records)? Report findings @ -No old charts were reviewed Differential Diagnosis (chest pain, altered mental status, abdominal pain women, abdominal pain men, vaginal bleeding, weakness, fever, dyspnea, syncope, headache, dizziness, GI bleed, back pain, seizure, CVA, palpatations, mental health, musculoskeletal)? @ -Differential Palpitations Ventricular arrhythmias, atrial arrhythmias, myocardial infarction, anemia, thyrotoxicosis, electrolyte imbalance, hypokalemia, pulmonary embolism, pulmonary disease, drugs, alcohol, anxiety, stress.... This is not meant to be an all-inclusive list. EKG interpreted by me (3pts min.). @ -As above X-rays interpreted by me (1pt min.). @ -X-ray shows no acute cardiopulmonary process. CT interpreted by me (1pt min.). @ -None done U/S interpreted by me (1pt. min.). @ -None done What testing was considered but not performed or refused? (CT, X-rays, U/S, labs)? Why? @ -None What meds were considered but not given or refused? Why? @ -None Did you discuss the management of the patient with other professionals (professionals i.e. , PA, [facility], lab, RT, psych nurse, socially responsible investment adviser, form setter, teacher, chief resource officer, disease case manager rn)? Give summary @ -No Was smoking cessation discussed for >3mins.? @ -No Was critical care preformed (if so, how long)? @ -No Were there social determinants of health that impacted care today? How? (Homel essness, low income, unemployed, alcoholism, drug addiction, transportation, low edu. Level, literacy, decrease access to med. care, half-way, rehab)? @ -No Was there de-escalation of care discussed even if they declined (Discuss DNR or withdrawal of care, Hospice)? DNR status @ -No What co-morbidities impacted this encounter? (DM, HTN, Smoking, COPD, CAD, Cancer, CVA, ARF, Chemo, Hep., AIDS, mental health diagnosis, sleep apnea, morbid obesity)? @ -Anxiety Was patient admitted / discharged? Hospital course, mention meds given and route, prescriptions, significant lab abnormalities, going to OR and other pertinent info. @ -Charge patient is a workup including labs, EKG and chest x-ray showing no acute process patient had a old right bundle. Patient is currently asymptomatic does not there is a longstanding history of anxiety states he gets himself worked up. He is able to ambulate and it was not tachycardic or symptomatic. Patient discharged in stable condition. Undiagnosed new problem with uncertain prognosis? @ -No Drug Therapy requiring intensive monitoring for toxicity (Heparin, Nitro, Insulin, Cardizem)? @ -No Were any procedures done? @ -No Diagnosis/symptom? @ -Palpitations Acute, or Chronic, or Acute on Chronic? @ -Acute Uncomplicated (without systemic symptoms) or Complicated (systemic symptoms)? @ -Uncomplicated Side effects of treatment? @ -No Exacerbation, Progression, or Severe Exacerbation? @ -No Poses a threat to life or bodily function? How? (Chest pain, USA, NM, pneumonia, PE, COPD, DKA, ARF, appy, cholecystitis, CVA, Diverticulitis, Homicidal, Suicidal, threat to staff... and all critical care pts) @ -No - Lab Data Result diagrams: 09/10/24 07:33 09/10/24 07:33 Lab Results 09/10/24 09/10/24 09/10/24 Range/Units 07:33 07:33 07:33 WBC 7.2 (3.8-10.6) k/uL RBC 4.26 L (4.30-5.90) m/uL Hgb 13.3 (13.0-17.5) gm/dL Hct 38.2 L (39.0-53.0) % MCV 89.7 (80.0-100.0) fL MCH 31.1 (25.0-35.0) pg MCHC 34.7 (31.0-37.0) g/dL RDW 13.1 (11.5-15.5) % Plt Count 240 (150-450) k/uL MPV 8.0 Neutrophils % 74 % Lymphocytes % 15 % Monocytes % 7 % Eosinophils % 2 % Basophils % 1 % Neutrophils # 5.4 (1.3-7.7) k/uL Lymphocytes # 1.1 (1.0-4.8) k/uL Monocytes # 0.5 (0-1.0) k/uL Eosinophils # 0.1 (0-0.7) k/uL Basophils # 0.0 (0-0.2) k/uL PT 10.4 (10.0-12.5) sec INR 0.9 (<1.2) APTT 23.6 (22.0-30.0) sec D-Dimer 0.50 (<0.60) mg/L FEU Sodium 135 L (137-145) mmol/L Potassium 3.8 (3.5-5.1) mmol/L Chloride 99 (98-107) mmol/L Carbon Dioxide 30 (22-30) mmol/L Anion Gap 6 mmol/L BUN 14 (9-20) mg/dL Creatinine 0.80 (0.66-1.25) mg/dL Est GFR (CKD-EPI)AfAm >90 (>60 ml/min/1.73 sqM) Est GFR (CKD-EPI)NonAf 82 (>60 ml/min/1.73 sqM) Glucose 116 H (74-99) mg/dL Calcium 9.6 (8.4-10.2) mg/dL Magnesium 2.1 (1.6-2.3) mg/dL Total Bilirubin 0.9 (0.2-1.3) mg/dL AST 26 (17-59) U/L ALT 22 (4-49) U/L Alkaline Phosphatase 76 (38-126) U/L Troponin I (0.000-0.034) ng/mL Total Protein 7.0 (6.3-8.2) g/dL Albumin 4.2 (3.5-5.0) g/dL 09/10/24 Range/Units 07:33 WBC (3.8-10.6) k/uL RBC (4.30-5.90) m/uL Hgb (13.0-17.5) gm/dL Hct (39.0-53.0) % MCV (80.0-100.0) fL MCH (25.0-35.0) pg MCHC (31.0-37.0) g/dL RDW (11.5-15.5) % Plt Count (150-450) k/uL MPV Neutrophils % % Lymphocytes % % Monocytes % % Eosinophils % % Basophils % % Neutrophils # (1.3-7.7) k/uL Lymphocytes # (1.0-4.8) k/uL Monocytes # (0-1.0) k/uL Eosinophils # (0-0.7) k/uL Basophils # (0-0.2) k/uL PT (10.0-12.5) sec INR (<1.2) APTT (22.0-30.0) sec D-Dimer (<0.60) mg/L FEU Sodium (137-145) mmol/L Potassium (3.5-5.1) mmol/L Chloride (98-107) mmol/L Carbon Dioxide (22-30) mmol/L Anion Gap mmol/L BUN (9-20) mg/dL Creatinine (0.66-1.25) mg/dL Est GFR (CKD-EPI)AfAm (>60 ml/min/1.73 sqM) Est GFR (CKD-EPI)NonAf (>60 ml/min/1.73 sqM) Glucose (74-99) mg/dL Calcium (8.4-10.2) mg/dL Magnesium (1.6-2.3) mg/dL Total Bilirubin (0.2-1.3) mg/dL AST (17-59) U/L ALT (4-49) U/L Alkaline Phosphatase (38-126) U/L Troponin I <0.012 (0.000-0.034) ng/mL Total Protein (6.3-8.2) g/dL Albumin (3.5-5.0) g/dL Disposition Clinical Impression: Palpitations Disposition: HOME SELF-CARE Condition: Stable Instructions (If sedation given, give patient instructions): Heart Palpitations (ED) Additional Instructions: Please return to the Emergency Department if symptoms worsen or any other concerns. Is patient prescribed a controlled substance at d/c from ED?: No Referrals: Jeff Medina DO [Primary Care Provider] - 1-2 days Time of Disposition: 08:56
[2024-09-10] MEDS: SODIUM CHLORIDE 0.9% 500 ML 500 ML IV STA (07:30)
[2024-09-10 07:57] LABS: ALT 22 U/L (4-49); AST 26 U/L (17-59); African American GFR (CKD) >90 (>60 ml/min/1.73 sqM); Albumin 4.2 g/dL (3.5-5.0); Alkaline Phosphatase 76 U/L (38-126); Anion Gap 6 mmol/L; Blood Urea Nitrogen 14 mg/dL (9-20); Calcium 9.6 mg/dL (8.4-10.2); Carbon Dioxide 30 mmol/L (22-30); Chloride 99 mmol/L (98-107); Glucose 116 mg/dL (74-99); Magnesium 2.1 mg/dL (1.6-2.3); Non-African American GFR(CKD) 82 (>60 ml/min/1.73 sqM); Potassium 3.8 mmol/L (3.5-5.1); Sodium 135 mmol/L (137-145); Total Bilirubin 0.9 mg/dL (0.2-1.3)
[2024-09-10 07:59] LABS: Basophils % (A) 1 %; Eosinophils # (A) 0.1 k/uL (0-0.7); Eosinophils % (A) 2 %; HCT 38.2 % (39.0-53.0); HGB 13.3 gm/dL (13.0-17.5); Lymphocytes # (A) 1.1 k/uL (1.0-4.8); Lymphocytes % (A) 15 %; MCH 31.1 pg (25.0-35.0); MCHC 34.7 g/dL (31.0-37.0); MCV 89.7 fL (80.0-100.0); Monocytes # (A) 0.5 k/uL (0-1.0); Monocytes % (A) 7 %; Neutrophils # (A) 5.4 k/uL (1.3-7.7); Neutrophils % (A) 74 %; Platelet Count 240 k/uL (150-450); RBC 4.26 m/uL (4.30-5.90); RDW 13.1 % (11.5-15.5); WBC 7.2 k/uL (3.8-10.6)
[2024-09-10 08:01] LABS: INR 0.9 (<1.2); Partial Thromboplastin Time 23.6 sec (22.0-30.0); Prothrombin Time 10.4 sec (10.0-12.5)
--- NOTE | 2024-09-10 08:20 | XR ---
EXAMINATION TYPE: XR chest 2V DATE OF EXAM: 09/10/2024 8:16 AM COMPARISON: 02/12/2023 CLINICAL INDICATION: Male, 84 years old with history of dysrhythmia: Shortness of breath TECHNIQUE: XR chest 2V views of the chest are obtained. FINDINGS: Scattered senescent parenchymal changes noted. Hyperinflation compatible with COPD. No evidence for infiltrate. No evidence for atelectasis. Heart size is stable. Mediastinal structures are stable and grossly unremarkable. No evidence for hilar prominence. Degenerative changes dorsal spine. IMPRESSION: 1. No evidence for acute pulmonary disease. [facility], , 09/10/2024 8:18 AM
[2024-09-10 09:47] VITALS: BP 104/65; PULSE 75; RESP 16; TEMP 97.9
== END 2024-09-10 09:46 | disposition home or self-care (01) ==
LOC: EC 06:36
DX: R00.2 Palpitations (principal); F41.9 Anxiety disorder, unspecified; I45.10 Unspecified right bundle-branch block; Z87.891 Personal history of nicotine dependence; Z88.0 Allergy status to penicillin; Z88.7 Allergy status to serum and vaccine; Z88.8 Allergy status to other drugs, medicaments and biological substances
CPT/HCPCS: 36415; 71046; 80053; 83735; 84484; 85025; 85379; 85610; 85730; 93005; 96360; 96361; 99285